=== PATIENT | male | born 1955 | race Caucasian/White ===

== ENCOUNTER 2018-01-14 08:40 | Observation (INO) | payer BC ==
--- OUTSIDE RECORDS SUMMARY | 2018-01-14 08:49 | XMS REPORT | Clinical Summary ---
:1955 Author Organization [facility] Address [address] [place] [address] Phone Care Team Providers Name Role Phone Unavailable Primary Care Provider Unavailable Allergies Active Allergy Reactions Severity Noted Date Comments Promethazine 02/20/2017 Current Medications Prescription Sig. Disp. Refills Start Date End Date Status lisinopril-hydroCHLOROthi Take 1 tablet by Active azide mouth daily. (PRINZIDE,ZESTORETIC) 20-25 mg per tabletIndications: hypertension propranolol (INDERAL) 60 Take 60 mg by mouth Active MG tablet 2 (two) times daily. Active Problems Problem Noted Date SOB (shortness of breath) 02/20/2017 Pyelonephritis 02/20/2017 Metabolic acidosis 02/20/2017 Alcohol abuse 02/20/2017 Leukocytosis 02/20/2017 Altered mental status 02/20/2017 HTN (hypertension), malignant 02/20/2017 Encounters Date Type Specialty Care Team Description 02/24/2017 Orders Only General Internal Medicine 02/20/2017 - Hospital Encounter Intensive Care Anthony Sorensen 03/07/2017 MD Cindi after 01/13/2017 Social History Tobacco Use Types Packs/Day Years Used Date Current Every Day Smoker Cigarettes Smokeless Tobacco: Current User Tobacco Cessation: Ready to Quit: No; Counseling Given: Yes Alcohol Use Drinks/Week oz/Week Comments Yes Sex Assigned at Date Recorded Not on file Last Filed Vital Signs Vital Sign Reading Time Taken Blood Pressure 141/81 03/07/2017 9:00 PM CDT Pulse 97 03/07/2017 9:00 PM CDT Temperature 36.9 C (98.5 F) 03/07/2017 7:05 PM CDT Respiratory Rate 26 03/07/2017 9:00 PM CDT Oxygen Saturation 94% 03/07/2017 9:00 PM CDT Inhaled Oxygen Concentration - - Weight 60.7 kg (133 lb 12.8 oz) 02/20/2017 9:00 PM CDT Height 172.7 cm (5' 8") 02/20/2017 9:00 PM CDT Body Mass Index 20.34 02/20/2017 9:00 PM CDT Plan of Treatment Not on file Results RHYTHM STRIP - SCAN (03/10/2017 2:42 PM)Only the most recent of3 resultswithin the time period is included.EKG-SCANNED (03/10/2017 2:41 PM)CARDIAC CATH REPORT - SCAN (03/10/2017 2:41 PM)TRANSFUSION SERVICE REPORT - SCAN (2016 5:30 PM)Only the most recent of5 resultswithin the time period is included.Prepare Leuko-Red RBC (03/08/2017 11:54 PM)Only the most recent of2 resultswithin the time period is included. Component Value Ref Range CROSSMATCH COMPATIBLE Unit ABO A Neg UNIT NUMBER [id number] Status TRANSFUSED Blood Bank Product RED BLOOD CELLS PRODUCT CODE [id number] Specimen Performing Laboratory Other [facility] [place] Type and screen (03/07/2017 8:17 AM)Only the most recent of2 resultswithin the time period is included. Component Value Ref Range Ab Scrn NEGATIVE ABO Grouping A Rh Factor POS Specimen Performing Laboratory Blood [facility] [address] [place] [address] Manual Differential (03/07/2017 4:38 AM)Only the most recent of12 resultswithin the time period is included. Component Value Ref Range % Neutros (manual) 87 % % Lymphs (manual) 7 % % Monos (manual) 4 % % Eos (manual) 1 % % Baso (manual) 1 % # Neutros (manual) 25.67 (H) 1.80 - 8.00 K/L # Lymphs (manual) 2.07 1.48 - 4.50 K/L # Monos (manual) 1.18 0.00 - 1.30 K/L # Eos (manual) 0.30 0.00 - 0.50 K/L # Baso (manual) 0.30 (H) 0.00 - 0.20 K/L Total Counted 100 WBC Morphology Normal Platelet Morphology Normal Polychromasia 1+ few Stomatocytes 1+ few Specimen Performing Laboratory [facility] [address] [place] [address] CBC with platelet count + automated diff (03/07/2017 4:38 AM)Only the most recent of13 resultswithin the time period is included. Component Value Ref Range WBC 29.5 (H) 4.0 - 10.0 K/L RBC 2.65 (L) 4.20 - 5.80 M/L Hemoglobin 8.0 (L) 13.0 - 16.8 GM/DL Hematocrit 24.3 (L) 40.0 - 50.0 % MCV 91.6 82.0 - 98.0 fL MCH 30.1 27.0 - 33.0 pg MCHC 32.9 32.0 - 36.0 GM/DL RDW 16.2 (H) 10.3 - 14.2 % Platelets 168 150 - 430 K/CU MM MPV 11.3 (H) 6.5 - 10.5 fL nRBC 0 0 - 0 /100 WBC [place] [address] CBC with platelet count + automated diff (03/07/2017 4:38 AM)Only the most recent of13 resultswithin the time period is included. Specimen Performing Laboratory Blood Narrative The following orders were created for panel order CBC with platelet count + automated diff. Procedure Abnormality Status --------- ------ CBC with platelet count ...[[id number]]AbnormalFinal result Manual Differential[[id number]]Abnormal Final result Please view results for these tests on the individual orders. Phosphorus (03/07/2017 4:38 AM)Only the most recent of11 resultswithin the time period is included. Component Value Ref Range Phosphorus 4.2 2.5 - 4.5 mg/dL Specimen Performing [facility] [address] [place] [address] Magnesium (03/07/2017 4:38 AM)Only the most recent of12 resultswithin the time period is included. Component Value Ref Range Magnesium 1.7 1.5 - 3.0 mg/dL Specimen Performing Laboratory [facility] [address] [place], [place] [id number] Comprehensive metabolic panel (03/07/2017 4:38 AM)Only the most recent of12 resultswithin the time period is included. Component Value Ref Range Protein, Total 6.0 6.0 - 8.5 gm/dL Albumin 1.7 (L) 3.5 - 5.0 g/dL Alkaline Phosphatase 160 (H) 30 - 115 U/L Total Bilirubin 0.4 0.1 - 1.2 mg/dL Sodium 134 (L) 135 - 148 meq/L Potassium 3.8 3.6 - 5.5 meq/L Chloride 104 98 - 106 meq/L CO2 23 20 - 29 meq/L BUN 28 (H) 10 - 26 mg/dL Creatinine 2.50 (H) 0.50 - 1.20 mg/dL Glucose 92 70 - 110 mg/dL Calcium 8.1 (L) 8.5 - 10.5 mg/dL AST 18 5 - 40 U/L ALT 11 5 - 50 U/L EGFR 26Comment: ESTIMATED GFR IS NOT ACCURATE mL/min/1.73 sq m CREATININE CLEARANCE IN PREDICTING GLOMERULAR FILTRATION RATE. ESTIMATED GFR IS NOT APPLICABLE FOR DIALYSIS PATIENTS. Specimen Performing Laboratory Blood [facility] [address] [place] [address] POC-Glucose meter (03/06/2017 5:43 PM)Only the most recent of19 resultswithin the time period is included. Component Value Ref Range POC-Glucose Meter 128 (H)Comment: TESTED AT [facility] [address] 70 - 110 mg/dL [facility] [address] Specimen Performing Laboratory Blood [address] [address] Basic Metabolic Panel (03/06/2017 6:47 AM)Only the most recent of5 resultswithin the time period is included. Component Value Ref Range Sodium 136 135 - 148 meq/L Potassium 3.7 3.6 - 5.5 meq/L Chloride 104 98 - 106 meq/L CO2 25 20 - 29 meq/L BUN 21 10 - 26 mg/dL Creatinine 2.10 (H) 0.50 - 1.20 mg/dL Glucose 116 (H) 70 - 110 mg/dL Calcium 7.9 (L) 8.5 - 10.5 mg/dL EGFR 32Comment: ESTIMATED GFR IS NOT ACCURATE mL/min/1.73 sq m CREATININE CLEARANCE IN PREDICTING GLOMERULAR FILTRATION RATE. ESTIMATED GFR IS NOT APPLICABLE FOR DIALYSIS PATIENTS. Specimen Performing Laboratory Blood [facility] [address] [place] [address] CT brain with IV contrast (03/05/2017 4:42 PM) Specimen Performing Laboratory [facility] Narrative FINAL REPORT CT head with contrast 03/05/2017 5:04 PM CLINICAL HISTORY: encephalopathy, r/o brain masses TECHNIQUE: Axial contrast-enhanced CT images of the head were obtained. This examination was performed according to our departmental dose optimization program, which includes automated exposure control, adjustment of the mA and/or kV according to patient size, and/or use of iterated reconstruction technique. COMPARISON: None available FINDINGS: There is no mass, hydrocephalus, extra-axial collection, midline shift, or abnormal intracranial enhancement. There is no evident hemorrhage. There is atherosclerotic calcification of the intracranial arterial vasculature. There is generalized parenchymal volume loss. The visualized paranasal sinuses and mastoid air cells are well aerated. The skull is intact. There are subcentimeter metallic density foreign bodies in the subcutaneous tissue overlying the left maxillary sinus and within the posterior wall of the left maxillary sinus. The skull is otherwise intact. IMPRESSION: Unremarkable postcontrast examination. Signed: Aquiles Sellers MD Report Verified Date/Time:03/05/2017 17:08:24 Reading Location: [facility] Radiology Reading Room Procedure Note Interface, External Ris In - 03/05/2017 5:33 PM CDT FINAL REPORT CT head with contrast 03/05/2017 5:04 PM CLINICAL HISTORY: encephalopathy, r/o brain masses TECHNIQUE: Axial contrast-enhanced CT images of the head were obtained. This examination was performed according to our departmental dose optimization program, which includes automated exposure control, adjustment of the mA and/or kV according to patient size, and/or use of iterated reconstruction technique. COMPARISON: None available FINDINGS: There is no mass, hydrocephalus, extra-axial collection, midline shift, or abnormal intracranial enhancement. There is no evident hemorrhage. There is atherosclerotic calcification of the intracranial arterial vasculature. There is generalized parenchymal volume loss. The visualized paranasal sinuses and mastoid air cells are well aerated. The skull is intact. There are subcentimeter metallic density foreign bodies in the subcutaneous tissue overlying the left maxillary sinus and within the posterior wall of the left maxillary sinus. The skull is otherwise intact. IMPRESSION: Unremarkable postcontrast examination. Signed: Aquiles Sellers MD Report Verified Date/Time: 03/05/2017 17:08:24 Reading Location: [facility] Radiology Reading Room chest with IV contrast (03/05/2017 4:42 PM) Specimen Performing Laboratory [employer] Narrative FINAL REPORT DOSE REDUCTION: The examination was performed according to departmental dose-optimization program which includes automated exposure control, adjustment of the mA and/or kV according to patient size and/or use of iterative reconstruction technique. TECHNIQUE: CT of the chest with intravenous contrast. CT of the abdomen with and without intravenous contrast using liver protocol. CT of the pelvis with intravenous contrast. Oral contrast was administered. COMPARISON: No previous CT for direct comparison. Discussion: There is a small to moderate left pleural effusion. There is a small right pleural effusion. There is lower lobe consolidation, likely atelectasis. There are nonspecific groundglass opacities bilaterally, most likely due to edema. Heart is enlarged. No significant mediastinal or hilar lymphadenopathy. Vascular calcifications are seen. Feeding tube identified. Right internal jugular nontunneled dialysis catheter identified. No definite suspicious liver lesion. No arterially enhancing foci. There is moderate intra and extra hepatic bile duct dilatation with smooth tapering distally. Correlation with history and LFTs recommended. Some of this could be due to cholecystectomy but distally obstructing mass cannot be excluded. The pancreas is markedly heterogeneous with extensive calcifications throughout. A gross pancreatic mass is not seen but a subtle lesion cannot be excluded. There are multiple prominent lymph nodes adjacent to the head of the pancreas, along the gastrohepatic ligament, malinda hepatis, as well as in the mesentery. The largest of these measures up to 2.5 cm. These may be reactive to chronic inflammation of the metastatic lymph nodes cannot be excluded. Spleen is heterogeneous. There is left adrenal gland nodularity. Right adrenal gland appears unremarkable. There are bilateral renal hypodensities, some are cysts others are too small to characterize. Left renal cortical irregularity seen. Right kidney appears small compared to the left. No small or large bowel obstruction. Mild wall thickening involving a few small bowel loops may be due to ascites/hypoalbuminemia. There is a small amount of ascites. No organized fluid collections or abscess. Extensive vascular calcifications are seen. Aorta and IVC are normal in caliber. Periaortic and pericaval lymph nodes measuring up to 2 cm identified. The bladder, prostate and seminal vesicles are unremarkable. There is moderate soft tissue anasarca. There is a low-density fluid collection along the right iliacus muscle measuring about 5 x 2.5 x 3 cm. This may represent old hematoma/seroma or some bursal fluid. There is no gas within this collection. There is a similar, nongas containing 2 x 1.5 cm fluid collection posterior to the right psoas. No acute skeletal abnormality. IMPRESSION: 1. Marked heterogeneity of the pancreas with innumerable calcifications throughout most consistent with sequela of chronic pancreatitis. No obvious pancreatic mass by CT but a subtle lesion in the pancreatic head or uncinate process cannot be excluded, especially given the biliary dilatation and the upper abdominal lymphadenopathy. Correlation with history and LFTs recommended. ERCP/MRCP may be considered. 2. Small amount of ascites. No organized fluid collections or abscess. Moderate soft tissue anasarca. 3. Small to moderate left pleural effusion and small right pleural effusion. Bilateral lower lobe consolidation likely due to atelectasis although infiltrate cannot be excluded. Nonspecific patchy groundglass opacities elsewhere the lungs. 4. Mild wall thickening involving a few small bowel loops bowel loops may be due to ascites/hypoalbuminemia. Mild enteritis is possible. 5. Small amount of fluid posterior to the right psoas muscle, and along the right iliac is muscle be due to old hematoma/seroma or some bursal fluid. No gas within the collection to suggest definitive abscess. Signed: Arash Thacker MD Report Verified Date/Time:03/05/2017 17:34:00 Reading Location: [facility] Radiology Reading Room Procedure Note Interface, External Ris In - 03/05/2017 5:36 PM CDT FINAL REPORT DOSE REDUCTION: The examination was performed according to departmental dose-optimization program which includes automated exposure control, adjustment of the mA and/or kV according to patient size and/or use of iterative reconstruction technique. TECHNIQUE: CT of the chest with intravenous contrast. CT of the abdomen with and without intravenous contrast using liver protocol. CT of the pelvis with intravenous contrast. Oral contrast was administered. COMPARISON: No previous CT for direct comparison. Discussion: There is a small to moderate left pleural effusion. There is a small right pleural effusion. There is lower lobe consolidation, likely atelectasis. There are nonspecific groundglass opacities bilaterally, most likely due to edema. Heart is enlarged. No significant mediastinal or hilar lymphadenopathy. Vascular calcifications are seen. Feeding tube identified. Right internal jugular nontunneled dialysis catheter identified. No definite suspicious liver lesion. No arterially enhancing foci. There is moderate intra and extra hepatic bile duct dilatation with smooth tapering distally. Correlation with history and LFTs recommended. Some of this could be due to cholecystectomy but distally obstructing mass cannot be excluded. The pancreas is markedly heterogeneous with extensive calcifications throughout. A gross pancreatic mass is not seen but a subtle lesion cannot be excluded. There are multiple prominent lymph nodes adjacent to the head of the pancreas, along the gastrohepatic ligament, malinda hepatis, as well as in the mesentery. The largest of these measures up to 2.5 cm. These may be reactive to chronic inflammation of the metastatic lymph nodes cannot be excluded. Spleen is heterogeneous. There is left adrenal gland nodularity. Right adrenal gland appears unremarkable. There are bilateral renal hypodensities, some are cysts others are too small to characterize. Left renal cortical irregularity seen. Right kidney appears small compared to the left. No small or large bowel obstruction. Mild wall thickening involving a few small bowel loops may be due to ascites/hypoalbuminemia. There is a small amount of ascites. No organized fluid collections or abscess. Extensive vascular calcifications are seen. Aorta and IVC are normal in caliber. Periaortic and pericaval lymph nodes measuring up to 2 cm identified. The bladder, prostate and seminal vesicles are unremarkable. There is moderate soft tissue anasarca. There is a low-density fluid collection along the right iliacus muscle measuring about 5 x 2.5 x 3 cm. This may represent old hematoma/seroma or some bursal fluid. There is no gas within this collection. There is a similar, nongas containing 2 x 1.5 cm fluid collection posterior to the right psoas. No acute skeletal abnormality. IMPRESSION: 1. Marked heterogeneity of the pancreas with innumerable calcifications throughout most consistent with sequela of chronic pancreatitis. No obvious pancreatic mass by CT but a subtle lesion in the pancreatic head or uncinate process cannot be excluded, especially given the biliary dilatation and the upper abdominal lymphadenopathy. Correlation with history and LFTs recommended. ERCP/MRCP may be considered. 2. Small amount of ascites. No organized fluid collections or abscess. Moderate soft tissue anasarca. 3. Small to moderate left pleural effusion and small right pleural effusion. Bilateral lower lobe consolidation likely due to atelectasis although infiltrate cannot be excluded. Nonspecific patchy groundglass opacities elsewhere the lungs. 4. Mild wall thickening involving a few small bowel loops bowel loops may be due to ascites/hypoalbuminemia. Mild enteritis is possible. 5. Small amount of fluid posterior to the right psoas muscle, and along the right iliac is muscle be due to old hematoma/seroma or some bursal fluid. No gas within the collection to suggest definitive abscess. Signed: Arash Thacker MD Report Verified Date/Time: 03/05/2017 17:34:00 Reading Location: [facility] Radiology Reading Room abdomen/pelvis without & with IV contrast (03/05/2017 4:42 PM) Specimen Performing Laboratory [employer] Narrative FINAL REPORT DOSE REDUCTION: The examination was performed according to departmental dose-optimization program which includes automated exposure control, adjustment of the mA and/or kV according to patient size and/or use of iterative reconstruction technique. TECHNIQUE: CT of the chest with intravenous contrast. CT of the abdomen with and without intravenous contrast using liver protocol. CT of the pelvis with intravenous contrast. Oral contrast was administered. COMPARISON: No previous CT for direct comparison. Discussion: There is a small to moderate left pleural effusion. There is a small right pleural effusion. There is lower lobe consolidation, likely atelectasis. There are nonspecific groundglass opacities bilaterally, most likely due to edema. Heart is enlarged. No significant mediastinal or hilar lymphadenopathy. Vascular calcifications are seen. Feeding tube identified. Right internal jugular nontunneled dialysis catheter identified. No definite suspicious liver lesion. No arterially enhancing foci. There is moderate intra and extra hepatic bile duct dilatation with smooth tapering distally. Correlation with history and LFTs recommended. Some of this could be due to cholecystectomy but distally obstructing mass cannot be excluded. The pancreas is markedly heterogeneous with extensive calcifications throughout. A gross pancreatic mass is not seen but a subtle lesion cannot be excluded. There are multiple prominent lymph nodes adjacent to the head of the pancreas, along the gastrohepatic ligament, malinda hepatis, as well as in the mesentery. The largest of these measures up to 2.5 cm. These may be reactive to chronic inflammation of the metastatic lymph nodes cannot be excluded. Spleen is heterogeneous. There is left adrenal gland nodularity. Right adrenal gland appears unremarkable. There are bilateral renal hypodensities, some are cysts others are too small to characterize. Left renal cortical irregularity seen. Right kidney appears small compared to the left. No small or large bowel obstruction. Mild wall thickening involving a few small bowel loops may be due to ascites/hypoalbuminemia. There is a small amount of ascites. No organized fluid collections or abscess. Extensive vascular calcifications are seen. Aorta and IVC are normal in caliber. Periaortic and pericaval lymph nodes measuring up to 2 cm identified. The bladder, prostate and seminal vesicles are unremarkable. There is moderate soft tissue anasarca. There is a low-density fluid collection along the right iliacus muscle measuring about 5 x 2.5 x 3 cm. This may represent old hematoma/seroma or some bursal fluid. There is no gas within this collection. There is a similar, nongas containing 2 x 1.5 cm fluid collection posterior to the right psoas. No acute skeletal abnormality. IMPRESSION: 1. Marked heterogeneity of the pancreas with innumerable calcifications throughout most consistent with sequela of chronic pancreatitis. No obvious pancreatic mass by CT but a subtle lesion in the pancreatic head or uncinate process cannot be excluded, especially given the biliary dilatation and the upper abdominal lymphadenopathy. Correlation with history and LFTs recommended. ERCP/MRCP may be considered. 2. Small amount of ascites. No organized fluid collections or abscess. Moderate soft tissue anasarca. 3. Small to moderate left pleural effusion and small right pleural effusion. Bilateral lower lobe consolidation likely due to atelectasis although infiltrate cannot be excluded. Nonspecific patchy groundglass opacities elsewhere the lungs. 4. Mild wall thickening involving a few small bowel loops bowel loops may be due to ascites/hypoalbuminemia. Mild enteritis is possible. 5. Small amount of fluid posterior to the right psoas muscle, and along the right iliac is muscle be due to old hematoma/seroma or some bursal fluid. No gas within the collection to suggest definitive abscess. Signed: Arash Thacker MD Report Verified Date/Time:03/05/2017 17:34:00 Reading Location: [facility] Radiology Reading Room Procedure Note Interface, External Ris In - 03/05/2017 5:36 PM CDT FINAL REPORT DOSE REDUCTION: The examination was performed according to departmental dose-optimization program which includes automated exposure control, adjustment of the mA and/or kV according to patient size and/or use of iterative reconstruction technique. TECHNIQUE: CT of the chest with intravenous contrast. CT of the abdomen with and without intravenous contrast using liver protocol. CT of the pelvis with intravenous contrast. Oral contrast was administered. COMPARISON: No previous CT for direct comparison. Discussion: There is a small to moderate left pleural effusion. There is a small right pleural effusion. There is lower lobe consolidation, likely atelectasis. There are nonspecific groundglass opacities bilaterally, most likely due to edema. Heart is enlarged. No significant mediastinal or hilar lymphadenopathy. Vascular calcifications are seen. Feeding tube identified. Right internal jugular nontunneled dialysis catheter identified. No definite suspicious liver lesion. No arterially enhancing foci. There is moderate intra and extra hepatic bile duct dilatation with smooth tapering distally. Correlation with history and LFTs recommended. Some of this could be due to cholecystectomy but distally obstructing mass cannot be excluded. The pancreas is markedly heterogeneous with extensive calcifications throughout. A gross pancreatic mass is not seen but a subtle lesion cannot be excluded. There are multiple prominent lymph nodes adjacent to the head of the pancreas, along the gastrohepatic ligament, malinda hepatis, as well as in the mesentery. The largest of these measures up to 2.5 cm. These may be reactive to chronic inflammation of the metastatic lymph nodes cannot be excluded. Spleen is heterogeneous. There is left adrenal gland nodularity. Right adrenal gland appears unremarkable. There are bilateral renal hypodensities, some are cysts others are too small to characterize. Left renal cortical irregularity seen. Right kidney appears small compared to the left. No small or large bowel obstruction. Mild wall thickening involving a few small bowel loops may be due to ascites/hypoalbuminemia. There is a small amount of ascites. No organized fluid collections or abscess. Extensive vascular calcifications are seen. Aorta and IVC are normal in caliber. Periaortic and pericaval lymph nodes measuring up to 2 cm identified. The bladder, prostate and seminal vesicles are unremarkable. There is moderate soft tissue anasarca. There is a low-density fluid collection along the right iliacus muscle measuring about 5 x 2.5 x 3 cm. This may represent old hematoma/seroma or some bursal fluid. There is no gas within this collection. There is a similar, nongas containing 2 x 1.5 cm fluid collection posterior to the right psoas. No acute skeletal abnormality. IMPRESSION: 1. Marked heterogeneity of the pancreas with innumerable calcifications throughout most consistent with sequela of chronic pancreatitis. No obvious pancreatic mass by CT but a subtle lesion in the pancreatic head or uncinate process cannot be excluded, especially given the biliary dilatation and the upper abdominal lymphadenopathy. Correlation with history and LFTs recommended. ERCP/MRCP may be considered. 2. Small amount of ascites. No organized fluid collections or abscess. Moderate soft tissue anasarca. 3. Small to moderate left pleural effusion and small right pleural effusion. Bilateral lower lobe consolidation likely due to atelectasis although infiltrate cannot be excluded. Nonspecific patchy groundglass opacities elsewhere the lungs. 4. Mild wall thickening involving a few small bowel loops bowel loops may be due to ascites/hypoalbuminemia. Mild enteritis is possible. 5. Small amount of fluid posterior to the right psoas muscle, and along the right iliac is muscle be due to old hematoma/seroma or some bursal fluid. No gas within the collection to suggest definitive abscess. Signed: Arash Thacker MD Report Verified Date/Time: 03/05/2017 17:34:00 Reading Location: [facility] Radiology Reading Room Clostridium difficile Toxin PCR (03/05/2017 4:04 PM)Only the most recent of2 resultswithin the time period is included. Component Value Ref Range C.Diff Toxin, PCR Not Detected Not Detected Specimen Performing Laboratory Stool - Rectum [address] This qualitative real-time polymerase chain reaction assay detects the tcdB gene, encoded on the C.difficile pathogenicity locus (PaLoc).The product of tcdB , toxin B, is a cytotoxin essential for causing C.difficile-associated disease (CDAD) and is found in virtually all toxigenic C.difficile. This assay is performed for patients suspected of having either community- acquired or nosocomial CDAD.Accordingly, only symptomatic patients should be tested and formed stools will be rejected unless ileus is present (i.e., specified when ordering).Patients may be colonized with toxigenic C.difficile strains not causing active disease; therefore, clinical correlation is needed when deciding how to manage patients with a positive test result. The assay has not been validated as a test of cure as amplifiable nucleic acid may persist after effective treatment; therefore, follow-up testing of a positive result is not recommended. This qualitative real-time polymerase chain reaction assay detects the tcdB gene, encoded on the C.difficile pathogenicity locus (PaLoc).The product of tcdB , toxin B, is a cytotoxin essential for causing C.difficile-associated disease (CDAD) and is found in virtually all toxigenic C.difficile. This assay is performed for patients suspected of having either community- acquired or nosocomial CDAD.Accordingly, only symptomatic patients should be tested and formed stools will be rejected unless ileus is present (i.e., specified when ordering).Patients may be colonized with toxigenic C.difficile strains not causing active disease; therefore, clinical correlation is needed when deciding how to manage patients with a positive test result. The assay has not been validated as a test of cure as amplifiable nucleic acid may persist after effective treatment; therefore, follow-up testing of a positive result is not recommended. XR abdomen / KUB 1 view (03/04/2017 9:50 PM) Specimen Performing Laboratory [facility] Narrative FINAL REPORT Abdomen, one view CLINICAL INDICATION: Status post Dobbhoff placement COMPARISON: None FINDINGS: The tip of the feeding tube lies within the gastric body along the greater curvature of the stomach. The bowel gas pattern is nonspecific. Signed: Chepe Do MD Report Verified Date/Time:03/04/2017 21:56:12 Reading Location: [address] Consult Reading Room Procedure Note Interface, External Ris In - 03/04/2017 9:58 PM CDT FINAL REPORT Abdomen, one view CLINICAL INDICATION: Status post Dobbhoff placement COMPARISON: None FINDINGS: The tip of the feeding tube lies within the gastric body along the greater curvature of the stomach. The bowel gas pattern is nonspecific. Signed: Chepe Do MD Report Verified Date/Time: 03/04/2017 21:56:12 Reading Location: [address] Consult Reading Room non-tunneled dialysis catheter insertion (03/04/2017 3:11 PM) Specimen Performing Laboratory [facility] Narrative FINAL REPORT Fluoroscopic-guided lumbar puncture and nontunneled dialysis catheter insertion History: Sepsis, meningitis, renal failure. Slicing Machine Feeder: Chepe Harvey MD. Medication: None. Anesthesia: 5 cc of 1% lidocaine without epinephrine. Contrast: None. Fluoroscopy Time: 1.5 min. Reference Air Kerma (Ka, r): 233 mGy. Specimen: 1 cc of serosanguineous CSF. Discussion: All elements maximal sterile barrier technique was utilized for this procedure, including utilization of sterile scrub solution for skin prep, a large sterile sheet to cover the areas of the patient that were not prepped, and hand hygiene, mask, head covering, and sterile gown for performing radiologist and scrub technologist. After informed consent was obtained, the patient's back was prepped and draped in a sterile fashion. The skin was anesthetized with 1% lidocaine without epinephrine. Using fluoroscopic guidance, a 22 gauge spinal needle was advanced into the spinal canal at the level of L1-L2. Position was confirmed with fluoroscopy. CSF would not flow at this level. Therefore, the needle was repositioned at the L2-3 level. Very minimal fluid could be obtained in spite of positioning the patient left lateral decubitus. Approximately 1 mL of serosanguineous thick fluid was obtained and sent to the laboratory for studies. The patient tolerated the procedure well without evidence of immediate complication.A sterile dressing was applied to the needle insertion site. The patient was then positioned supine. The right neck was prepped and draped in the usual sterile fashion. Ultrasound evaluation showed a patent and compressible right internal jugular vein, which was punctured under direct real-time ultrasound guidance with a micropuncture needle.An ultrasound image was saved to PACS. A microwire and sheath were placed. A 0.035 inch wire was placed through the sheath into the right atrium. The tract was serially dilated. The 15 cm Schon temporary dialysis catheter was placed over the wire into the vein.The ports were flushed and aspirated easily following placement.The catheter was sutured to the skin to secure its placement.Vital signs were monitored throughout the procedure by a nurse, and remained stable.The patient tolerated the procedure well and left the department in the same condition. Results:Spot radiograph of the chest demonstrates the new dialysis catheter to lie in the expected position with its tip overlying the superior right atrium. Impression: 1. Uncomplicated fluoroscopically guided lumbar puncture at L2-3. Only 1 mL of viscous serosanguineous fluid could be obtained. 2.Successful, uncomplicated placement of a right internal jugular nontunneled dialysis catheter using sonographic and fluoroscopic guidance. Signed: Chepe Harvey MD Report Verified Date/Time:03/04/2017 16:25:02 Reading Location: [facility] Radiology Reading Room Procedure Note Interface, External Ris In - 03/06/2017 9:27 AM CDT FINAL REPORT Fluoroscopic-guided lumbar puncture and nontunneled dialysis catheter insertion History: Sepsis, meningitis, renal failure. Slicing Machine Feeder: Chepe Harvey MD. Medication: None. Anesthesia: 5 cc of 1% lidocaine without epinephrine. Contrast: None. Fluoroscopy Time: 1.5 min. Reference Air Kerma (Ka, r): 233 mGy. Specimen: 1 cc of serosanguineous CSF. Discussion: All elements maximal sterile barrier technique was utilized for this procedure, including utilization of sterile scrub solution for skin prep, a large sterile sheet to cover the areas of the patient that were not prepped, and hand hygiene, mask, head covering, and sterile gown for performing radiologist and scrub technologist. After informed consent was obtained, the patient's back was prepped and draped in a sterile fashion. The skin was anesthetized with 1% lidocaine without epinephrine. Using fluoroscopic guidance, a 22 gauge spinal needle was advanced into the spinal canal at the level of L1-L2. Position was confirmed with fluoroscopy. CSF would not flow at this level. Therefore, the needle was repositioned at the L2-3 level. Very minimal fluid could be obtained in spite of positioning the patient left lateral decubitus. Approximately 1 mL of serosanguineous thick fluid was obtained and sent to the laboratory for studies. The patient tolerated the procedure well without evidence of immediate complication. A sterile dressing was applied to the needle insertion site. The patient was then positioned supine. The right neck was prepped and draped in the usual sterile fashion. Ultrasound evaluation showed a patent and compressible right internal jugular vein, which was punctured under direct real-time ultrasound guidance with a micropuncture needle. An ultrasound image was saved to PACS. A microwire and sheath were placed. A 0.035 inch wire was placed through the sheath into the right atrium. The tract was serially dilated. The 15 cm Schon temporary dialysis catheter was placed over the wire into the vein. The ports were flushed and aspirated easily following placement. The catheter was sutured to the skin to secure its placement. Vital signs were monitored throughout the procedure by a nurse, and remained stable. The patient tolerated the procedure well and left the department in the same condition. Results: Spot radiograph of the chest demonstrates the new dialysis catheter to lie in the expected position with its tip overlying the superior right atrium. Impression: 1. Uncomplicated fluoroscopically guided lumbar puncture at L2-3. Only 1 mL of viscous serosanguineous fluid could be obtained. 2.Successful, uncomplicated placement of a right internal jugular nontunneled dialysis catheter using sonographic and fluoroscopic guidance. Signed: Chepe Harvey MD Report Verified Date/Time: 03/04/2017 16:25:02 Reading Location: [facility] Radiology Reading Room Lumbar Puncture Image-Guided (03/04/2017 3:01 PM)Only the most recent of2 resultswithin the time period is included. Specimen Performing Laboratory [employer] Narrative FINAL REPORT Fluoroscopic-guided lumbar puncture and nontunneled dialysis catheter insertion History: Sepsis, meningitis, renal failure. Slicing Machine Feeder: Chepe Harvey MD. Medication: None. Anesthesia: 5 cc of 1% lidocaine without epinephrine. Contrast: None. Fluoroscopy Time: 1.5 min. Reference Air Kerma (Ka, r): 233 mGy. Specimen: 1 cc of serosanguineous CSF. Discussion: All elements maximal sterile barrier technique was utilized for this procedure, including utilization of sterile scrub solution for skin prep, a large sterile sheet to cover the areas of the patient that were not prepped, and hand hygiene, mask, head covering, and sterile gown for performing radiologist and scrub technologist. After informed consent was obtained, the patient's back was prepped and draped in a sterile fashion. The skin was anesthetized with 1% lidocaine without epinephrine. Using fluoroscopic guidance, a 22 gauge spinal needle was advanced into the spinal canal at the level of L1-L2. Position was confirmed with fluoroscopy. CSF would not flow at this level. Therefore, the needle was repositioned at the L2-3 level. Very minimal fluid could be obtained in spite of positioning the patient left lateral decubitus. Approximately 1 mL of serosanguineous thick fluid was obtained and sent to the laboratory for studies. The patient tolerated the procedure well without evidence of immediate complication.A sterile dressing was applied to the needle insertion site. The patient was then positioned supine. The right neck was prepped and draped in the usual sterile fashion. Ultrasound evaluation showed a patent and compressible right internal jugular vein, which was punctured under direct real-time ultrasound guidance with a micropuncture needle.An ultrasound image was saved to PACS. A microwire and sheath were placed. A 0.035 inch wire was placed through the sheath into the right atrium. The tract was serially dilated. The 15 cm Schon temporary dialysis catheter was placed over the wire into the vein.The ports were flushed and aspirated easily following placement.The catheter was sutured to the skin to secure its placement.Vital signs were monitored throughout the procedure by a nurse, and remained stable.The patient tolerated the procedure well and left the department in the same condition. Results:Spot radiograph of the chest demonstrates the new dialysis catheter to lie in the expected position with its tip overlying the superior right atrium. Impression: 1. Uncomplicated fluoroscopically guided lumbar puncture at L2-3. Only 1 mL of viscous serosanguineous fluid could be obtained. 2.Successful, uncomplicated placement of a right internal jugular nontunneled dialysis catheter using sonographic and fluoroscopic guidance. Signed: Chepe Harvey MD Report Verified Date/Time:03/04/2017 16:25:02 Reading Location: [facility] Radiology Reading Room Procedure Note Interface, External Ris In - 03/06/2017 9:27 AM CDT FINAL REPORT Fluoroscopic-guided lumbar puncture and nontunneled dialysis catheter insertion History: Sepsis, meningitis, renal failure. Slicing Machine Feeder: Chepe Harvey MD. Medication: None. Anesthesia: 5 cc of 1% lidocaine without epinephrine. Contrast: None. Fluoroscopy Time: 1.5 min. Reference Air Kerma (Ka, r): 233 mGy. Specimen: 1 cc of serosanguineous CSF. Discussion: All elements maximal sterile barrier technique was utilized for this procedure, including utilization of sterile scrub solution for skin prep, a large sterile sheet to cover the areas of the patient that were not prepped, and hand hygiene, mask, head covering, and sterile gown for performing radiologist and scrub technologist. After informed consent was obtained, the patient's back was prepped and draped in a sterile fashion. The skin was anesthetized with 1% lidocaine without epinephrine. Using fluoroscopic guidance, a 22 gauge spinal needle was advanced into the spinal canal at the level of L1-L2. Position was confirmed with fluoroscopy. CSF would not flow at this level. Therefore, the needle was repositioned at the L2-3 level. Very minimal fluid could be obtained in spite of positioning the patient left lateral decubitus. Approximately 1 mL of serosanguineous thick fluid was obtained and sent to the laboratory for studies. The patient tolerated the procedure well without evidence of immediate complication. A sterile dressing was applied to the needle insertion site. The patient was then positioned supine. The right neck was prepped and draped in the usual sterile fashion. Ultrasound evaluation showed a patent and compressible right internal jugular vein, which was punctured under direct real-time ultrasound guidance with a micropuncture needle. An ultrasound image was saved to PACS. A microwire and sheath were placed. A 0.035 inch wire was placed through the sheath into the right atrium. The tract was serially dilated. The 15 cm Schon temporary dialysis catheter was placed over the wire into the vein. The ports were flushed and aspirated easily following placement. The catheter was sutured to the skin to secure its placement. Vital signs were monitored throughout the procedure by a nurse, and remained stable. The patient tolerated the procedure well and left the department in the same condition. Results: Spot radiograph of the chest demonstrates the new dialysis catheter to lie in the expected position with its tip overlying the superior right atrium. Impression: 1. Uncomplicated fluoroscopically guided lumbar puncture at L2-3. Only 1 mL of viscous serosanguineous fluid could be obtained. 2.Successful, uncomplicated placement of a right internal jugular nontunneled dialysis catheter using sonographic and fluoroscopic guidance. Signed: Chepe Harvey MD Report Verified Date/Time: 03/04/2017 16:25:02 Reading Location: [facility] Radiology Reading Room Margaret ink prep (03/04/2017 3:00 PM) Component Value Ref Range Margaret Ink No encapsulated yeast seen No encapsulated yeast seen Specimen Performing Laboratory Cerebrospinal Fluid - CSF [address] [address] CSF culture + gram stain (03/04/2017 3:00 PM)Only the most recent of2 resultswithin the time period is included. Component Value Ref Range Result No growth Gram Stain Result 1+ WBCs Gram Stain Result No organisms seen Specimen Performing Laboratory Cerebrospinal Fluid - CSF [facility] [address] [place] [id number] Fungus culture + smear (03/04/2017 3:00 PM) Component Value Ref Range Result No fungus isolated in 28 days Fungus Smear No fungi seen Specimen Performing Laboratory Cerebrospinal Fluid - CSF [address] [address] Sputum Culture + Gram Stain (03/04/2017 11:18 AM) Component Value Ref Range Result 3+ Normal respiratory yeni present Gram Stain Result 2+ WBCs Gram Stain Result 0-5 epithelial cells Gram Stain Result 3+ gram negative rods Gram Stain Result 1+ yeast Gram Stain Result <1+ gram positive cocci in pairs Specimen Performing Laboratory Sputum - Suctioned [facility] [address] [place] [id number] PT/aPTT (03/04/2017 10:24 AM) Component Value Ref Range Protime 10.8 9.3 - 12.0 seconds INR 1.0 <=5.9 PTT 29.2 23.0 - 35.0 seconds Specimen Performing Laboratory Blood - Arm, Left [facility] [address] [place] [address], [place] [address] Narrative RECOMMENDED COUMADIN/WARFARIN INR THERAPY RANGES STANDARD DOSE: 2.0 - 3.0 Includes: PROPHYLAXIS for venous thrombosis, systemic embolization; TREATMENT for venous thrombosis and/or pulmonary embolus. HIGH RISK: Target INR is 2.5-3.5 for patients with mechanical heart valves. Occult blood, stool (03/04/2017 10:08 AM)Only the most recent of2 resultswithin the time period is included. Component Value Ref Range Occult blood Positive (A) Negative Specimen Performing Laboratory Stool - Per Rectum [facility] [address] [place] [address] XR chest 1 view portable / bedside (03/04/2017 9:26 AM)Only the most recent of5 resultswithin the time period is included. Specimen Performing Laboratory [facility] Narrative FINAL REPORT Chest, one view. HISTORY: Abnormal chest sounds COMPARISON: 03/01/2017 IMPRESSION: Interval removal of right-sided Oziel catheter. Persistent retrocardiac opacification which could represent a combination of trace left pleural effusion with atelectasis and/or focal airspace disease/pneumonia. No new focal consolidation. Unchanged mild central venous congestion. Unchanged enlargement of the cardiomediastinal silhouette. Signed: Chepe Harvey MD Report Verified Date/Time:03/04/2017 09:28:45 Reading Location: [facility] Radiology Reading Room Procedure Note Interface, External Ris In - 03/04/2017 9:31 AM CDT FINAL REPORT Chest, one view. HISTORY: Abnormal chest sounds COMPARISON: 03/01/2017 IMPRESSION: Interval removal of right-sided Oziel catheter. Persistent retrocardiac opacification which could represent a combination of trace left pleural effusion with atelectasis and/or focal airspace disease/pneumonia. No new focal consolidation. Unchanged mild central venous congestion. Unchanged enlargement of the cardiomediastinal silhouette. Signed: Chepe Harvey MD Report Verified Date/Time: 03/04/2017 09:28:45 Reading Location: [facility] Radiology Reading Room Blood gas, arterial (03/04/2017 8:55 AM)Only the most recent of2 resultswithin the time period is included. Component Value Ref Range pH, Arterial 7.42 7.35 - 7.45 pCO2, Arterial 34 (L) 35 - 45 mmHg pO2, Arterial 105 (H) 80 - 90 mmHg O2 Sat, Arterial 97.9 (H) 96.0 - 97.0 % HCO3, Arterial 21 21 - 29 mmol/L Base Excess, Arterial -2.6 (L) -2.0 - 3.0 mmol/L Patient Temperature 37.0 C FIO2 28.0 % Specimen Performing Laboratory Blood, Arterial - Arm, Right [facility] [address] [place] [address] Ammonia (03/03/2017 7:27 PM)Only the most recent of3 resultswithin the time period is included. Component Value Ref Range Ammonia 19 17 - 80 mol/L Specimen Performing Laboratory Blood - Arm, Right [facility] [address] [place] [address] MR brain without IV contrast (03/03/2017 3:25 PM) Specimen Performing Laboratory RIS Narrative FINAL REPORT MRI brain Comparison:No priors Reason for exam: encephalopathy Discussion: Sagittal and coronal T1, axial FLAIR, T2, gradient echo T2 star, diffusion sequences and ADC map images of the brain are provided. There are no intracranial hematomas, mass effect, hydrocephalus, shift, or extra-axial collections. Tiny foci of FLAIR signal abnormality, and corresponding diffusion restriction are seen in the occipital horn of the lateral ventricles bilaterally, as well as a left parietal lobe sulcus, possibly reflective of meningitis. There are no areas of acute infarct. Flow-voids are seen in the basilar and internal carotid arteries as well as in the large posterior dural sinuses. The pineal, sella, and craniocervical junction regions are within normal limits. The visualized orbital contents,skullbase and surrounding soft tissues are unremarkable. The mastoid air cells are clear. Mild mucosal disease is noted in the maxillary sinuses. Impressions: Tiny foci of intraventricular, and left parietal sulcal signal abnormality /diffusion restriction may reflect meningitis. Suggest correlation with CSF analysis. Signed: Pk Jefferson MD Report Verified Date/Time:03/03/2017 15:57:57 Reading Location: [facility] Radiology Reading Room Procedure Note Interface, External Ris In - 03/03/2017 4:00 PM CDT FINAL REPORT MRI brain Comparison: No priors Reason for exam: encephalopathy Discussion: Sagittal and coronal T1, axial FLAIR, T2, gradient echo T2 star, diffusion sequences and ADC map images of the brain are provided. There are no intracranial hematomas, mass effect, hydrocephalus, shift, or extra-axial collections. Tiny foci of FLAIR signal abnormality, and corresponding diffusion restriction are seen in the occipital horn of the lateral ventricles bilaterally, as well as a left parietal lobe sulcus, possibly reflective of meningitis. There are no areas of acute infarct. Flow-voids are seen in the basilar and internal carotid arteries as well as in the large posterior dural sinuses. The pineal, sella, and craniocervical junction regions are within normal limits. The visualized orbital contents, skullbase and surrounding soft tissues are unremarkable. The mastoid air cells are clear. Mild mucosal disease is noted in the maxillary sinuses. Impressions: Tiny foci of intraventricular, and left parietal sulcal signal abnormality /diffusion restriction may reflect meningitis. Suggest correlation with CSF analysis. Signed: Pk Jefferson MD Report Verified Date/Time: 03/03/2017 15:57:57 Reading Location: [facility] Radiology Reading Room brain without IV contrast (03/03/2017 9:40 AM)Only the most recent of2 resultswithin the time period is included. Specimen Performing Laboratory Automile RIS Narrative FINAL REPORT CT head without contrast. Comparisons: February 25, 2017 Reason for exam: AMS. Discussion: Multiple axial CT images of the head are provided without contrast evaluated in brain and bone windows. Dose modulation, iterative reconstruction, and/or weight based adjustment of the mA/kV was utilized to reduce the radiation dose to as low as reasonably achievable. There is no CT evidence of intracranial hemorrhage, mass-effect, hydrocephalus, shift, or extra-axial collections. Incidental note is made of poor dentition with missing teeth and dental caries. A metallic foreign body is seen in the left paranasal soft tissues and hyperdense foreign material is seen in the left-sided pterygopalatine fossa region. The visualized dural sinus regions, orbital contents, paranasal sinuses, bones and surrounding soft tissues are otherwise unremarkable. Impressions: 1. No specific evidence of acute intracranial abnormality. Signed: Reyes Bhatia MD Report Verified Date/Time:03/03/2017 09:54:01 Reading Location: [address] Neuro Reading Room Procedure Note Interface, External Ris In - 03/03/2017 9:56 AM CDT FINAL REPORT CT head without contrast. Comparisons: February 25, 2017 Reason for exam: AMS. Discussion: Multiple axial CT images of the head are provided without contrast evaluated in brain and bone windows. Dose modulation, iterative reconstruction, and/or weight based adjustment of the mA/kV was utilized to reduce the radiation dose to as low as reasonably achievable. There is no CT evidence of intracranial hemorrhage, mass-effect, hydrocephalus, shift, or extra-axial collections. Incidental note is made of poor dentition with missing teeth and dental caries. A metallic foreign body is seen in the left paranasal soft tissues and hyperdense foreign material is seen in the left-sided pterygopalatine fossa region. The visualized dural sinus regions, orbital contents, paranasal sinuses, bones and surrounding soft tissues are otherwise unremarkable. Impressions: 1. No specific evidence of acute intracranial abnormality. Signed: Reyes Bhatia MD Report Verified Date/Time: 03/03/2017 09:54:01 Reading Location: [address] Neuro Reading Room Catheter Tip Culture (03/02/2017 2:54 PM) Component Value Ref Range Result No growth Specimen Performing Laboratory Other - Catheter Tip [facility] [address] [place] [address] Sodium, random urine (03/02/2017 1:49 PM) Component Value Ref Range Sodium Urine 37 meq/L Specimen Performing Laboratory Urine [facility] [address] [place] [address] Narrative Reference Range: No Normals Creatinine, random urine (03/02/2017 1:49 PM) Component Value Ref Range Creatinine, Ur 75.3 mg/dL Specimen Performing Laboratory Urine [facility] [address] [place] [address] Narrative Reference Range: No Normals Eosinophil smear (03/01/2017 2:58 PM) Component Value Ref Range Eosinophil Smear No EOS seen No EOS seen Specimen Performing Laboratory Urine [facility] [address] [place] [address] Transfuse Leuko-Red RBC (02/28/2017 5:59 AM)Only the most recent of3 resultswithin the time period is included.CBC (Hemogram only) (02/27/2017 4:43 AM)Only the most recent of3 resultswithin the time period is included. Component Value Ref Range WBC 27.2 (H) 4.0 - 10.0 K/L RBC 2.45 (L) 4.20 - 5.80 M/L Hemoglobin 7.4 (L) 13.0 - 16.8 GM/DL Hematocrit 23.1 (L) 40.0 - 50.0 % MCV 94.2 82.0 - 98.0 fL MCH 30.4 27.0 - 33.0 pg MCHC 32.2 32.0 - 36.0 GM/DL RDW 14.5 (H) 10.3 - 14.2 % Platelets 108 (L)Comment: histroy of low platlets 150 - 430 K/CU MM MPV 13.7 (H) 6.5 - 10.5 fL nRBC 0 0 - 0 /100 WBC Specimen Performing Laboratory Blood [facility] [address] [place] [id number] PERIPHERAL VASCULAR REPORT - SCAN (02/26/2017 2:10 PM)Arterial doppler arm, left (02/26/2017 9:05 AM) Specimen Performing Laboratory GE RIS Narrative FINAL REPORT Technique: Grayscale, color Doppler, spectral wave form analysis of the left upper extremity arterial system was performed. Discussion: Exam is technically limited due to patient's condition and inability to cooperate. Arthrosclerotic plaques are seen throughout. The visualized portion of the left subclavian artery, axillary artery, brachial artery, radial and ulnar arteries are otherwise patent without definite focal hemodynamically significant stenosis. Biphasic to triphasic waveforms seen throughout. IMPRESSION: Arthrosclerotic vascular calcifications but no focal hemodynamically significant stenosis in the left upper extremity arteries. Signed: Arash Thacker MD Report Verified Date/Time:02/26/2017 13:32:47 Reading Location: [facility] Radiology Reading Room Procedure Note Interface, External Ris In - 02/26/2017 1:35 PM CDT FINAL REPORT Technique: Grayscale, color Doppler, spectral wave form analysis of the left upper extremity arterial system was performed. Discussion: Exam is technically limited due to patient's condition and inability to cooperate. Arthrosclerotic plaques are seen throughout. The visualized portion of the left subclavian artery, axillary artery, brachial artery, radial and ulnar arteries are otherwise patent without definite focal hemodynamically significant stenosis. Biphasic to triphasic waveforms seen throughout. IMPRESSION: Arthrosclerotic vascular calcifications but no focal hemodynamically significant stenosis in the left upper extremity arteries. Signed: Arash Thacker MD Report Verified Date/Time: 02/26/2017 13:32:47 Reading Location: [facility] Radiology Reading Room CARDIOGRAM REPORT - SCAN (02/25/2017 5:36 PM)CT spine lumbar without IV contrast (02/25/2017 9:01 AM) Specimen Performing Laboratory [facility] RIS Narrative FINAL REPORT CT lumbar spine INDICATION: Lumbago COMPARISON: No priors TECHNIQUE: Multiple axial CT images of the lumbar spine were obtained without contrast. Sagittal and coronal 2D reconstructions were provided as well. This exam was performed according to our departmental dose optimization program which includes automated exposure control, adjustment of the mA and/or kV according to patient's size and/or use of iterative reconstructive technique. FINDINGS: Vertebral body height is normal, and alignment is maintained. No fracture, or suspicious bony lesion. Central canal appears narrow no congenital basis, and there is superimposed degenerative changes. Note evaluation of the central canal and neural foramina is limited in the absence of intrathecal contrast. At T12-L1, no significant central canal or foraminal narrowing. At L1-L2, there is a mild disc bulge and mild facet arthropathy. Central canal appears mildly narrowed, patent neural foramen. At L2-L3, there is a moderate diffuse disc bulge and mild facet arthropathy. There is cqhi-lm-ykbhvxuo narrowing of the central canal and okrh-eo-pacfrhqq right, moderate left foraminal stenosis. At L3-L4, there is loss of disc height, associated with a large disc bulge. Gnnw-py-ihnocqze facet arthropathy. Central canal is severely narrowed, and there is also moderate to severe bilateral foraminal stenosis. At L4-L5, there is a large disc bulge and gnjm-xw-lntnwgep facet arthropathy. Central canal appears moderately narrowed, and there is severe bilateral foraminal narrowing. At L5-S1, there is a large disc bulge and mild facet arthropathy. Central canal is mild to moderately narrowed, and there is severe bilateral foraminal stenosis. The aorta appears ectatic, measuring up to 2.5 cm, and is heavily calcified. The right kidney appears atrophic, containing a 1.5 cm hypodensity that likely represents a hemorrhagic or proteinaceous cyst when correlated with recent ultrasound. There is nonspecific right-sided perinephric fat stranding. Additionally, a small amount of ascites is also noted, with probable small right pleural effusion. The visualized paraspinal soft tissues appear unremarkable. Note is made of anasarca. 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 In particular, there is severe central canal narrowing and moderate bilateral foraminal narrowing at L3-L4. Severe bilateral foraminal narrowing is also noted at L4-L5 and at L5-S1. Small amount of ascites. Probable small right pleural effusion. Anasarca. Atherosclerotic disease, ectatic aorta. Atrophic right kidney, containing a hemorrhagic/tenacious cyst. Signed: Pk Jefferson MD Report Verified Date/Time:02/25/2017 13:58:19 Reading Location: [facility] C013 Consult Reading Room Procedure Note Interface, External Ris In - 02/25/2017 2:00 PM CDT FINAL REPORT CT lumbar spine INDICATION: Lumbago COMPARISON: No priors TECHNIQUE: Multiple axial CT images of the lumbar spine were obtained without contrast. Sagittal and coronal 2D reconstructions were provided as well. This exam was performed according to our departmental dose optimization program which includes automated exposure control, adjustment of the mA and/or kV according to patient's size and/or use of iterative reconstructive technique. FINDINGS: Vertebral body height is normal, and alignment is maintained. No fracture, or suspicious bony lesion. Central canal appears narrow no congenital basis, and there is superimposed degenerative changes. Note evaluation of the central canal and neural foramina is limited in the absence of intrathecal contrast. At T12-L1, no significant central canal or foraminal narrowing. At L1-L2, there is a mild disc bulge and mild facet arthropathy. Central canal appears mildly narrowed, patent neural foramen. At L2-L3, there is a moderate diffuse disc bulge and mild facet arthropathy. There is grwg-cr-awmuccpx narrowing of the central canal and aavw-sv-eftqzfek right, moderate left foraminal stenosis. At L3-L4, there is loss of disc height, associated with a large disc bulge. Kefo-tf-kiktfiis facet arthropathy. Central canal is severely narrowed, and there is also moderate to severe bilateral foraminal stenosis. At L4-L5, there is a large disc bulge and fxmt-cb-xnhxquoz facet arthropathy. Central canal appears moderately narrowed, and there is severe bilateral foraminal narrowing. At L5-S1, there is a large disc bulge and mild facet arthropathy. Central canal is mild to moderately narrowed, and there is severe bilateral foraminal stenosis. The aorta appears ectatic, measuring up to 2.5 cm, and is heavily calcified. The right kidney appears atrophic, containing a 1.5 cm hypodensity that likely represents a hemorrhagic or proteinaceous cyst when correlated with recent ultrasound. There is nonspecific right-sided perinephric fat stranding. Additionally, a small amount of ascites is also noted, with probable small right pleural effusion. The visualized paraspinal soft tissues appear unremarkable. Note is made of anasarca. 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 In particular, there is severe central canal narrowing and moderate bilateral foraminal narrowing at L3-L4. Severe bilateral foraminal narrowing is also noted at L4-L5 and at L5-S1. Small amount of ascites. Probable small right pleural effusion. Anasarca. Atherosclerotic disease, ectatic aorta. Atrophic right kidney, containing a hemorrhagic/tenacious cyst. Signed: Pk Jefferson MD Report Verified Date/Time: 02/25/2017 13:58:19 Reading Location: [facility] B1 [id number] Consult Reading Room Vancomycin level, random (02/24/2017 2:05 PM)Only the most recent of3 resultswithin the time period is included. Component Value Ref Range Vancomycin Rm 18.0 ug/mL Specimen Performing Laboratory Blood [facility] [address] [facility] [place] [address] Narrative Reference Range: No Normals 2D Echo W/Doppler(CW/PW/Color) (02/24/2017 8:09 AM) Component Value Ref Range Ejection Fraction Specimen Performing Laboratory [facility] ECHO HEARTLAB MKCKESSON CPACS Narrative Transthoracic Echocardiography Report (TTE) Demographics Patient Name LORNA VERMA Date of Study02/24/2017 [id number] Male Visit Number [id number] Unknown Accession Number [id number] Room [id number] Date of Birth1955Referring Physician Age62 year(s)SonographMuna James [facility] Interpreting Physician Reno Dewey MD Procedure Type of Study TTE procedure:2DECHO W DOPPLER(CW/PW/COLOR) (Routine) Indications:Dyspnea/SOB. Clinical History HTN EMPHYSEMA Height: 68 inches Weight: 60.33 kg (133 lbs) BSA: 1.72 m^2 BMI: 20.22 kg/m^2 HR: 100 bpm BP: 112/68 mmHg Summary TDS Normal left ventricular chamber size. Mild LVH. Normal overall left ventricular systolic function. No apparent segmental wall motion abnormalities. Estimated LVEF is 55-60%. Mild mitral annular calcification. Trace mitral regurgitation. TV structure is normal. A trace of tricuspid regurgitation. Signature Findings LeftTDS Ventricle Normal left ventricular chamber size. Mild LVH. Normal overall left ventricular systolic function. No apparent segmental wall motion abnormalities. Estimated LVEF is 55-60%. Left Atrium Normal size left atrium. Right Normal right ventricle structure and function. Ventricle Right AtriumNormal right atrium. Aortic ValveThere is evidence of aortic valve sclerosis without significant stenosis. Mitral ValveMild mitral annular calcification. Trace mitral regurgitation. Tricuspid TV structure is normal. Valve A trace of tricuspid regurgitation. PulmonicPV is not well visualized. Valve Aorta Aortic root size (SInus of Valsalva diameter) is normal . Pericardium No evidence of pericardial effusion. Chambers/Structures Left Atrium LA Dimension: 2.54 cm Left Ventricle LVIDd: 4.08 cmLVEDV 2D :73.38 ml LVIDs: 2.93 cmLVESV 2D :33.08 ml LV Septum Diastolic: 2.14 cm LV Septum Systolic: 2.1 cm LV PW Diastolic: 1.3 cm LV FS: 28.2 % LV PW Systolic: 1.82 cm LV ESV (Cubed): 25.15 cc LVOT Diameter: 2.33 cm LV ESV (Teich):33.03 ml LV SV (Teich):40.33 ml LV SI (Teich):23.45 ml/m^2 LVEF 2D Teich: 54.9 % Right Atrium RA Systolic Pressure: 10 mmHg Right Ventricle RV Diast Dim.: 2.78 cm RV Systolic Pressure: 17.44 mmHg Aorta Ao Root S of .: 3.09 cm Shunts QS:104 ml Doppler/Quantitative Measurements Mitral Valve MV Peak E-Wave: 0.78 m/s MV Peak A-Wave: 0.99 m/s P1/2t: 39.1 msec E/A Ratio: 0.78 Peak Velocity: 0.98 m/sPeak Gradient: 2.4 mmHg Mean Velocity: 0.6 m/s Deceleration Time: 145.9 msec Mean Gradient: 1.7 mmHgArea (continuity): 4.86 cm^ 2 MV Area (PHT): 5.63 cm^2 MV VTI: 21.38 cm Tissue Doppler E' Septal Velocity: 0.07 m/s E' Lateral Velocity: 0.1 m/s Aortic Valve Peak Velocity: 1.66 m/s Mean Velocity: 1.1 m/s Peak Gradient: 11.02 mmHg Mean Gradient: 5.8 mmHg AV Area (continuity): 4 cm^2 AV VTI: 25.99 cm Cusp Separation: 0.78 cm AV DVI: 0.94 LVOT Peak Velocity: 1.37 m/s Peak Gradient: 7.5 mmHg Mean Velocity: 0.88 m/s Mean Gradient: 3.84 mmHg LVOT Diameter: 2.33 cmLVOT VTI: 24.39 cm LVOT Area: 4.26 cm^2LVOT SV:103.94 ml LVOT CO: 10.39 l/minLVOT CI: 6.04 l/min/m^2 Tricuspid Valve Estimated RVSP: 17.44 mmHg Estimated RAP: 10 mmHg TR Velocity: 1.36 m/s TR Gradient: 7.44 mmHg Pulmonic Valve Estimated PASP: 17.44 mmHg Procedure Note Interface, External Ris In - 02/25/2017 4:40 PM CDT Transthoracic Echocardiography Report (TTE) Demographics Patient Name LORNA VERMA Date of Study 02/24/2017 Gender Male Visit Number [id number] Race Unknown Accession Number [id number] Room Number I205 Date of 1955 Referring Physician Age 62 year(s) 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 Clinical History HTN EMPHYSEMA Height: 68 inches Weight: 60.33 kg (133 lbs) BSA: 1.72 m^2 BMI: 20.22 kg/m^2 HR: 100 bpm BP: 112/68 mmHg Summary TDS Normal left ventricular chamber size. Mild LVH. Normal overall left ventricular systolic function. No apparent segmental wall motion abnormalities. Estimated LVEF is 55-60%. Mild mitral annular calcification. Trace mitral regurgitation. TV structure is normal. A trace of tricuspid regurgitation. Signature Findings Left TDS Ventricle Normal left ventricular chamber size. Mild LVH. Normal overall left ventricular systolic function. No apparent segmental wall motion abnormalities. Estimated LVEF is 55-60%. Left Atrium Normal size left atrium. Right Normal right ventricle structure and function. Ventricle Right Atrium Normal right atrium. Aortic Valve There is evidence of aortic valve sclerosis without significant stenosis. Mitral Valve Mild mitral annular calcification. Trace mitral regurgitation. Tricuspid TV structure is normal. Valve A trace of tricuspid regurgitation. Pulmonic PV is not well visualized. Valve Aorta Aortic root size (SInus of Valsalva diameter) is normal . Pericardium No evidence of pericardial effusion. Chambers/Structures Left Atrium LA Dimension: 2.54 cm Left Ventricle LVIDd: 4.08 cm LVEDV 2D:73.38 ml LVIDs: 2.93 cm LVESV 2D:33.08 ml LV Septum Diastolic: 2.14 cm LV Septum Systolic: 2.1 cm LV PW Diastolic: 1.3 cm LV FS: 28.2 % LV PW Systolic: 1.82 cm LV ESV (Cubed):25.15 cc LVOT Diameter: 2.33 cm LV ESV (Teich):33.03 ml LV SV (Teich):40.33 ml LV SI (Teich):23.45 ml/m^2 LVEF 2D Teich: 54.9 % Right Atrium RA Systolic Pressure: 10 mmHg Right Ventricle RV Diast Dim.: 2.78 cm RV Systolic Pressure: 17.44 mmHg Aorta Ao Root S of .: 3.09 cm Shunts QS:104 ml Doppler/Quantitative Measurements Mitral Valve MV Peak E-Wave: 0.78 m/s MV Peak A-Wave: 0.99 m/s P1/2t: 39.1 msec E/A Ratio: 0.78 Peak Velocity: 0.98 m/s Peak Gradient: 2.4 mmHg Mean Velocity: 0.6 m/s Deceleration Time: 145.9 msec Mean Gradient: 1.7 mmHg Area (continuity): 4.86 cm^2 MV Area (PHT): 5.63 cm^2 MV VTI: 21.38 cm Tissue Doppler E' Septal Velocity: 0.07 m/s E' Lateral Velocity: 0.1 m/s Aortic Valve Peak Velocity: 1.66 m/s Mean Velocity: 1.1 m/s Peak Gradient: 11.02 mmHg Mean Gradient: 5.8 mmHg AV Area (continuity): 4 cm^2 AV VTI: 25.99 cm Cusp Separation: 0.78 cm AV DVI: 0.94 LVOT Peak Velocity: 1.37 m/s Peak Gradient: 7.5 mmHg Mean Velocity: 0.88 m/s Mean Gradient: 3.84 mmHg LVOT Diameter: 2.33 cm LVOT VTI: 24.39 cm LVOT Area: 4.26 cm^2 LVOT SV:103.94 ml LVOT CO: 10.39 l/min LVOT CI: 6.04 l/min/m^2 Tricuspid Valve Estimated RVSP: 17.44 mmHg Estimated RAP: 10 mmHg TR Velocity: 1.36 m/s TR Gradient: 7.44 mmHg Pulmonic Valve Estimated PASP: 17.44 mmHg STOOL PATH CHARGE (02/24/2017 4:57 AM) Component Value Ref Range Pathogen exam charged Done Specimen Performing Laboratory Stool - Rectum [facility] [address] [place] [id number] Shiga Toxin Screen (02/24/2017 4:57 AM) Component Value Ref Range Shiga toxin 1 Not detected Not detected Shiga toxin 2 Not detected Not detected Specimen Performing Laboratory Stool - Rectum [facility] [address] [place] [address] Stool culture + Shiga toxin (02/24/2017 4:57 AM) Component Value Ref Range Result No Salmonella, Shigella or Campylobacter isolated Specimen Performing Laboratory Stool - Rectum [facility] [address] [place] [address] HIV-1 Antigen with HIV-1/2 Antibody (02/23/2017 6:09 AM) Component Value Ref Range HIV-1 Antigen with HIV 1&2 Antibody Nonreactive Nonreactive Specimen Performing Laboratory Blood - Central Venous Line [facility] [address] [place] [address] Carbohydrate antigen 19-9 (CA 19-9) (02/23/2017 6:09 AM) Component Value Ref Range CA 19-9 316 (H) <34 U/mL Comment: This test was performed using the Siemens (Lionel) Chemiluminescent method. Values obtained from different assay methods cannot be used interchangeably. CA19-9 levels, regardless of value, should not be interpreted as absolute evidence of the presence or absence of disease. Specimen Performing Laboratory Blood - Central Venous Line [facility] [address] [place] [address] Narrative Performing Lab [facility] [address] [place] [address] Jim Harmon MD Alpha fetoprotein (AFP), tumor marker (02/23/2017 6:09 AM) Component Value Ref Range Alpha-Fetoprotein <2.0 <10.0 ng/mL Specimen Performing Laboratory Blood - Central Venous Line [address] [address] Hepatitis panel, acute (02/23/2017 6:09 AM) Component Value Ref Range Hep A IgM Nonreactive Nonreactive Hep B C IgM Nonreactive Nonreactive Hepatitis C Ab Nonreactive Nonreactive hepatitis B Surface Ag Nonreactive Nonreactive Specimen Performing Laboratory Blood - Central Venous Line [address] [address] Urine culture (02/22/2017 11:04 PM)Only the most recent of2 resultswithin the time period is included. Component Value Ref Range Result No growth Specimen Performing Laboratory Urine - Urine, Irene [facility] [address] [place] [address] CSF cell count with differential (02/22/2017 4:08 PM) Component Value Ref Range Appearance Turbid (A) Clear Color Other (A)Comment: Light Brown Colorless RBCs 481070 (H) 0 - 5 /cu mm WBCs 946868 (H) <=5 /cu mm RBCs Fresh? 100% Fresh # of Cells Diff'd 100 % Neutros 92 (H) 0 - 5 % % Lymphs 4 (L) 40 - 80 % % Monos 4 (L) 15 - 45 % % Eos 0 <=0 % % Baso 0 <=0 % Interpretation Predominantly acute inflammation. Agree with differential count Pathologist: Amy Orozco M.D. (electronic signature) Tube Number 2 Specimen Performing Laboratory Cerebrospinal Fluid - CSF, tube 2 [facility] [address] [place] [address] West Nile Virus, CSF, IgG and IgM (02/22/2017 4:08 PM) Component Value Ref Range West Nile Ab,Igm <0.90 Comment: REFERENCE RANGE: <0.90 INTERPRETIVE CRITERIA <0.90 Antibody not detected 0.90 - 1.10 Equivocal >1.10 Antibody detected West Nile virus (WNV) IgM is usually detectable in CSF from WNV-infected patients with encephalitis or meningitis at the time of clinical presentation. Because IgM antibody does not readily cross the blood-brain barrier, IgM antibody in CSF strongly suggests acute central nervous system infection. WNV antibody results from CSF should be in interpreted with caution. Possible complicating factors include low levels of antibody found in CSF, passive transfer of antibodies from blood, and contamination via bloody spinal taps. Antibodies induced by other flavivirus infections (e.g. Dengue virus, [place] encephalitis virus) may show cross-reactivity with WNV. Specimen Performing Laboratory Cerebrospinal Fluid - CSF, tube 2 [facility] [address] [address] Narrative Performing Lab *QDID [facility] [address] [place] [phone] Mumtaz Renae MD Protein, CSF (02/22/2017 4:08 PM) Component Value Ref Range Protein, CSF 352 (H) 15 - 45 mg/dL Specimen Performing Laboratory Cerebrospinal Fluid - CSF, tube 2 [facility] [address] [place] [address] Myelin basic protein, CSF (02/22/2017 4:08 PM) Component Value Ref Range Myelin Basic Protein SEE BELOW 0 - 4.0 mcg/L Comment: Specimen grossly turbid. Reference ranges for Myelin Basic Protein: Result Interpretation 0- 4.0 mcg/LNegative 4.1-6.0 mcg/LWeakly Positive Greater than 6.0 mcg/L Positive This test was developed and its analytical performance characteristics have been determined by [facility]. It has not been cleared or approved by FDA. This assay has been validated pursuant to the CLIA regulations and is used for clinical purposes. Specimen Performing Laboratory Cerebrospinal Fluid - CSF, tube 2 [facility] [address] [address] Narrative Performing Lab [facility] [address] [address] Jim Harmon MD Glucose, CSF (02/22/2017 4:08 PM) Component Value Ref Range Glucose, CSF 4 (LL) 40 - 70 mg/dL Specimen Performing Laboratory Cerebrospinal Fluid - CSF, tube 2 [facility] [address] [place] [address] Uric acid (02/22/2017 6:03 AM)Only the most recent of3 resultswithin the time period is included. Component Value Ref Range Uric Acid 11.2 (H) 2.5 - 8.0 mg/dL Specimen Performing Laboratory [facility] [address] [place] [address] B-type Natriuretic Factor (BNP) (02/22/2017 6:03 AM) Component Value Ref Range BNP 2856 (H) 0 - 100 pg/mL Specimen Performing Laboratory Blood [facility] [address] [place] [address] XR hand 3 views right (02/21/2017 5:51 PM) Specimen Performing Laboratory [facility] Narrative FINAL REPORT Comparison: None Discussion: Multiple views are submitted ofthe right hand. There are no acute fractures or dislocations. There is diffuse osteopenia. No suspicious osseous lytic or blastic lesions. Nonspecific soft tissue edema seen. Impression: No acute bony abnormality. Signed: Arash Thacker MD Report Verified Date/Time:02/21/2017 18:00:38 Reading Location: [facility] Radiology Reading Room Procedure Note Interface, External Ris In - 02/21/2017 6:02 PM CDT FINAL REPORT Comparison: None Discussion: Multiple views are submitted of the right hand. There are no acute fractures or dislocations. There is diffuse osteopenia. No suspicious osseous lytic or blastic lesions. Nonspecific soft tissue edema seen. Impression: No acute bony abnormality. Signed: Arash Thacker MD Report Verified Date/Time: 02/21/2017 18:00:38 Reading Location: [facility] Radiology Reading Room hand 3 views left (02/21/2017 5:51 PM) Specimen Performing Laboratory [facility] Narrative FINAL REPORT Comparison: None Discussion: Multiple views are submitted ofthe left hand. Exam is limited due to portable technique and suboptimal positioning. No definite fracture or dislocation identified. There is diffuse osteopenia. There is nonspecific soft tissue edema. There is a radiopaque foreign body of unclear etiology measuring about 2 mm in between the soft tissues of the first and second digit. Correlation with history recommended. IMPRESSION: No definite acute bony abnormality. Punctate radiopaque foreign body within the soft tissues in between the thumb and index finger. Nonspecific soft tissue edema. Signed: Arash Thacker MD Report Verified Date/Time:02/21/2017 17:59:33 Reading Location: [facility] Radiology Reading Room Procedure Note Interface, External Ris In - 02/21/2017 6:01 PM CDT FINAL REPORT Comparison: None Discussion: Multiple views are submitted of the left hand. Exam is limited due to portable technique and suboptimal positioning. No definite fracture or dislocation identified. There is diffuse osteopenia. There is nonspecific soft tissue edema. There is a radiopaque foreign body of unclear etiology measuring about 2 mm in between the soft tissues of the first and second digit. Correlation with history recommended. IMPRESSION: No definite acute bony abnormality. Punctate radiopaque foreign body within the soft tissues in between the thumb and index finger. Nonspecific soft tissue edema. Signed: Arash Thacker MD Report Verified Date/Time: 02/21/2017 17:59:33 Reading Location: [facility] Radiology Reading Room Hepatitis B surface antibody (02/21/2017 12:53 PM) Component Value Ref Range Hep B S Ab <8.0 <8.0 mIU/mL Specimen Performing Laboratory Blood - Line, Venous [facility] [address] [address] Hepatitis B surface antigen (02/21/2017 12:53 PM) Component Value Ref Range hepatitis B Surface Ag Nonreactive Nonreactive Specimen Performing Laboratory Blood - Line, Venous [facility] [address] [place] [address] IR Non-tunneled Catheter - Central Line/Oziel Temporary (02/21/2017 12:00 PM) Specimen Performing Laboratory [facility] Narrative FINAL REPORT Procedure: Placement of a nontunneled hemodialysis catheter. Clinical History: Renal disease Operators: Beatriz Sedation:None TECHNIQUE: The right neck was prepped and draped in sterile fashion. All elements maximal sterile barrier technique was utilized for this procedure, including utilization of sterile scrub solution for skin prep, a large sterile sheet to cover the areas of the patient that were not prepped, and hand hygiene, mask, head covering, and sterile gown for performing radiologist and scrub technologist. 1% lidocaine local anesthesia was obtained. The rightinternal jugularvein was accessed with ultrasound guidance and a micropuncture system. Access site was dilated using multiple dilators up to 13 [place]. A 15 cm nontunneled " Trialysis" catheter was then advanced over a wire under fluoroscopic control into position near the cavoatrial junction. Wire was removed and the catheter was anchored to the skin using Prolene sutures. The catheter lumens flushed and aspirated easily and were packed with heparin. FINDINGS: 1. Patent right internal jugular vein by ultrasound.An image was saved to PACS. 2. Spot radiograph post procedure demonstrate the catheter tip at the atriocaval junction. Total fluoroscopy time: 12 seconds Estimated dose reported as ( Ka, r): 0.1 mGy There are no immediate complications. IMPRESSION: Successful placement of a nontunneled right internal jugular vein hemodialysis catheter using sonographic and fluoroscopic guidance. 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 Clinical History: Renal disease Operators: Beatriz Sedation: None TECHNIQUE: The right neck was prepped and draped in sterile fashion. All elements maximal sterile barrier technique was utilized for this procedure, including utilization of sterile scrub solution for skin prep, a large sterile sheet to cover the areas of the patient that were not prepped, and hand hygiene, mask, head covering, and sterile gown for performing radiologist and scrub technologist. 1% lidocaine local anesthesia was obtained. The right internal jugular vein was accessed with ultrasound guidance and a micropuncture system. Access site was dilated using multiple dilators up to 13 [place]. A 15 cm nontunneled " Trialysis" catheter was then advanced over a wire under fluoroscopic control into position near the cavoatrial junction. Wire was removed and the catheter was anchored to the skin using Prolene sutures. The catheter lumens flushed and aspirated easily and were packed with heparin. FINDINGS: 1. Patent right internal jugular vein by ultrasound. An image was saved to PACS. 2. Spot radiograph post procedure demonstrate the catheter tip at the atriocaval junction. Total fluoroscopy time: 12 seconds Estimated dose reported as ( Ka, r): 0.1 mGy There are no immediate complications. IMPRESSION: Successful placement of a nontunneled right internal jugular vein hemodialysis catheter using sonographic and fluoroscopic guidance. Signed: Arash Thacker MD Report Verified Date/Time: 06/27/2017 10:01:07 Reading Location: [facility] Radiology Reading Room abdomen complete (02/21/2017 9:13 AM) Specimen Performing Laboratory [employer] Narrative FINAL REPORT Technique: Sonographic images of the abdomen obtained COMPARISON: None FINDINGS: Exam is significantly limited as patient was unable to lay motionless or suspend respiration for the exam. Liver is diffusely heterogeneous. There is intra and extra hepatic bile duct dilatation. Underlying mass lesions cannot be excluded. Liver measures 15.9 cm. Gallbladder is surgically absent. Spleen is not seen. Common bile duct measures 10 mm. Portal vein measures 8 mm. Right kidney is small and echogenic. It measures 8 cm without gross hydronephrosis or mass. A cyst in the lower pole of the right kidney seen. Left kidney measures 12 cm. No hydronephrosis or mass. It appears echogenic. Left renal cyst is seen measuring up to 2 cm. Pancreatic duct is dilated measuring 9 mm. Pancreas is not well seen. IVC appears patent. Calcified aorta are noted. There is ectasia of the infrarenal aorta measuring up to 2.5 cm. There is trace ascites. No pleural effusions. IMPRESSION: 1. Significantly limited ultrasound. 2. Diffusely heterogeneous liver with intrahepatic and extrahepatic bile duct dilatation as well as pancreatic duct dilatation. Underlying liver and/or pancreatic masses cannot be excluded. CT or MRI recommended. The latter could be performed using routine as well as MRCP protocol. 3. Echogenic kidneys, right being smaller than the left. This may be due to underlying medical renal disease. Bilateral renal cysts. 4. Ectasia of the infrarenal aorta. Signed: Arash Thacker MD Report Verified Date/Time:02/21/2017 09:26:31 Reading Location: [facility] Radiology Reading Room Procedure Note Interface, External Ris In - 02/21/2017 9:28 AM CDT FINAL REPORT Technique: Sonographic images of the abdomen obtained COMPARISON: None FINDINGS: Exam is significantly limited as patient was unable to lay motionless or suspend respiration for the exam. Liver is diffusely heterogeneous. There is intra and extra hepatic bile duct dilatation. Underlying mass lesions cannot be excluded. Liver measures 15.9 cm. Gallbladder is surgically absent. Spleen is not seen. Common bile duct measures 10 mm. Portal vein measures 8 mm. Right kidney is small and echogenic. It measures 8 cm without gross hydronephrosis or mass. A cyst in the lower pole of the right kidney seen. Left kidney measures 12 cm. No hydronephrosis or mass. It appears echogenic. Left renal cyst is seen measuring up to 2 cm. Pancreatic duct is dilated measuring 9 mm. Pancreas is not well seen. IVC appears patent. Calcified aorta are noted. There is ectasia of the infrarenal aorta measuring up to 2.5 cm. There is trace ascites. No pleural effusions. IMPRESSION: 1. Significantly limited ultrasound. 2. Diffusely heterogeneous liver with intrahepatic and extrahepatic bile duct dilatation as well as pancreatic duct dilatation. Underlying liver and/or pancreatic masses cannot be excluded. CT or MRI recommended. The latter could be performed using routine as well as MRCP protocol. 3. Echogenic kidneys, right being smaller than the left. This may be due to underlying medical renal disease. Bilateral renal cysts. 4. Ectasia of the infrarenal aorta. Signed: Arash Thacker MD Report Verified Date/Time: 02/21/2017 09:26:31 Reading Location: [facility] Radiology Reading Room Prothrombin time/INR (02/21/2017 8:13 AM) Component Value Ref Range Protime 11.4 9.3 - 12.0 seconds INR 1.1 <=5.9 Specimen Performing Laboratory [facility] [address] [place] [id number] Narrative RECOMMENDED COUMADIN/WARFARIN INR THERAPY RANGES STANDARD DOSE: 2.0 - 3.0 Includes: PROPHYLAXIS for venous thrombosis, systemic embolization; TREATMENT for venous thrombosis and/or pulmonary embolus. HIGH RISK: Target INR is 2.5-3.5 for patients with mechanical heart valves. Hemoglobin A1c (02/21/2017 8:13 AM) Component Value Ref Range Hemoglobin A1C 4.9 4.3 - 6.1 % Specimen Performing Laboratory [facility] [address] [place] [id number] Urinalysis w/Microscopic (02/20/2017 11:16 PM) Component Value Ref Range Color, UA Yellow Clarity, UA Cloudy Specific Husser, UA 1.020 1.001 - 1.035 pH, UA 5.5 5.0 - 8.0 Protein, UA 100 mg/dL (A) Negative Glucose, UA Negative Negative Ketones, UA Negative Negative Bilirubin, UA Negative Negative Blood, UA Large (A) Negative Nitrite, UA Positive (A) Negative Leukocytes, UA Moderate (A) Negative Urobilinogen, UA 0.2 0.2 - 1.0 mg/dL Bacteria, UA Many RBC, UA 50-100 /HPF WBC, UA 10-20 /HPF SQUAMOUS EPITHELIAL <5 /HPF Specimen Source Specimen Performing Laboratory Urine - Urine, [facility] [address] [place] [id number] Peripheral Blood Smear - Path Review (02/20/2017 11:13 PM) Component Value Ref Range RBC Morphology Alexandru Cells PolychromasiaComment: Normochromic normocytic anemia with slight polychromasia and a few alexandru cells. WBC Morphology Left Shift Toxic Granulation BlastsComment: Leukocytosis with neutrophilia with toxic granulation. Left shift including bands, metamyelocytes, myelocytes, promyelocytes and a rare possible blast. Platelet Morphology Large Platelets Pathologist Review Peripheral granulocytosis with circulating forms beyond band level suggestive of myeloproliferative process. Clinical correlation is suggested. Pathologist Amy Orozco M.D. (electronic signature) Specimen Performing Laboratory [facility] [address] [place] [id number] Blood culture (02/20/2017 11:13 PM)Only the most recent of2 resultswithin the time period is included. Component Value Ref Range Result No growth in 5 days Specimen Performing Laboratory Blood - Arm, Right [facility] [address] [facility] [place] [address] after 01/13/2017
--- OUTSIDE RECORDS SUMMARY | 2018-01-14 08:51 | XMS REPORT ---
:1955 Author Organization [facility] Address [address] [place] [address] Care Team Providers Name Role Phone DHARMESH STOVALL Unavailable Unavailable Problems This patient has no known problems. Allergies, Adverse Reactions, Alerts This patient has no known allergies or adverse reactions. Medications This patient has no known medications. Results Test Description Test Time Test Comments Text Results Atomic Results Result Comments ANG, NON-TUNNELED CATH >5 Y.O. 2017-06-27 10:01:00 FINAL REPORT PATIENT ID : FLUORO [id number] Procedure: Placement of a nontunneled hemodialysis catheter. [...] dilated using multiple dilators up to 13 [place]. A 15 cm nontunneled " Trialysis" catheter [...] using sonographic and fluoroscopic guidance. Signed: Arash Henderson MDReport Verified Date/Time: 06/27/2017 10:01:07 Reading Location: [facility] Radiology Reading Room US CULTURE + SMEAR 2017-04-02 18:17:00 Test Item Value Reference Range Comments CULTURE (BEAKER) (test jrsg=4712) No fungus isolated in 28 days FUNGUS SMEAR (BEAKER) (test zdjh=5092) No fungi seen CBC W/PLT COUNT & AUTO [id number] 09:37:00 Test Item Value Reference Range Comments WHITE BLOOD CELL COUNT (BEAKER) (test znan=166) 29.5 K/ L 4.0-10.0 RED BLOOD CELL COUNT (BEAKER) (test cckz=094) 2.65 M/ L 4.20-5.80 HEMOGLOBIN (BEAKER) (test liuo=719) 8.0 GM/DL 13.0-16.8 HEMATOCRIT (BEAKER) (test bqjo=169) 24.3 % 40.0-50.0 MEAN CORPUSCULAR VOLUME (BEAKER) (test ukic=307) 91.6 fL 82.0-98.0 MEAN CORPUSCULAR HEMOGLOBIN (BEAKER) (test 30.1 pg 27.0-33.0 gmtm=438) MEAN CORPUSCULAR HEMOGLOBIN CONC (BEAKER) (test 32.9 GM/DL 32.0-36.0 anms=113) RED CELL DISTRIBUTION WIDTH (BEAKER) (test 16.2 % 10.3-14.2 ybyc=592) PLATELET COUNT (BEAKER) (test phkp=254) 168 K/CU MM 150-430 MEAN PLATELET VOLUME (BEAKER) (test bngk=433) 11.3 fL 6.5-10.5 NUCLEATED RED BLOOD CELLS (BEAKER) (test 0 /100 WBC 0-0 gmgq=186) (MANUAL DIFFERENTIAL)2017-03-07 09:37:00 Test Item Value Reference Range Comments NEUTROPHILS - REL (DIFF) (BEAKER) (test 87 % kvik=9769) LYMPHOCYTES - REL (DIFF) (BEAKER) (test 7 % uvvz=1751) MONOCYTES - REL (DIFF) (BEAKER) (test cljc=9746) 4 % EOSINOPHILS - REL (DIFF) (BEAKER) (test 1 % pcev=9263) BASOPHILS - REL (DIFF) (BEAKER) (test digl=5715) 1 % NEUTROPHILS - ABS (DIFF) (BEAKER) (test 25.67 K/ L 1.80-8.00 wdmp=1049) LYMPHOCYTES - ABS (DIFF) (BEAKER) (test 2.07 K/ L 1.48-4.50 wyja=4812) MONOCYTES - ABS (DIFF) (BEAKER) (test akzl=0749) 1.18 K/ L 0.00-1.30 EOSINOPHILS - ABS (DIFF) (BEAKER) (test 0.30 K/ L 0.00-0.50 lwqp=1261) BASOPHILS - ABS (DIFF) (BEAKER) (test egss=8708) 0.30 K/ L 0.00-0.20 TOTAL COUNTED (BEAKER) (test hjch=5235) 100 WBC MORPHOLOGY (BEAKER) (test wqcj=632) Normal PLT MORPHOLOGY (BEAKER) (test fqsf=941) Normal POLYCHROMATOPHILLIC RBCS(BEAKER) (test xrzu=908) 1+ few STOMATOCYTES (BEAKER) (test fcfp=586) 1+ few SPUTUM CULTURE + GRAM [id number] 08:10:00 Test Item Value Reference Range Comments CULTURE (BEAKER) (test 3+ Normal respiratory yeni sspz=3771) present GRAM STAIN RESULT (BEAKER) 2+ WBCs (test qbhf=9201) GRAM STAIN RESULT (BEAKER) 0-5 epithelial cells (test rpyc=12571) GRAM STAIN RESULT (BEAKER) 3+ gram negative rods (test wenv=24360) GRAM STAIN RESULT (BEAKER) 1+ yeast (test stws=869096) GRAM STAIN RESULT (BEAKER) <1+ gram positive cocci in pairs (test zgnj=660408) CSF CULTURE + GRAM [id number] 08:09:00 Test Item Value Reference Range Comments CULTURE (BEAKER) (test ezeg=5564) No growth GRAM STAIN RESULT (BEAKER) (test 1+ WBCs cxfb=3122) GRAM STAIN RESULT (BEAKER) (test No organisms seen xgqi=83836) COMPREHENSIVE METABOLIC [id number] 05:17:00 Test Item Value Reference Range Comments TOTAL PROTEIN (BEAKER) 6.0 gm/dL 6.0-8.5 (test otti=870) ALBUMIN (BEAKER) (test 1.7 g/dL 3.5-5.0 rngo=9076) ALKALINE PHOSPHATASE 160 U/L 30-115 (BEAKER) (test talv=467) BILIRUBIN TOTAL (BEAKER) 0.4 mg/dL 0.1-1.2 (test sgdp=213) SODIUM (BEAKER) (test 134 meq/L 135-148 onvw=502) POTASSIUM (BEAKER) (test 3.8 meq/L 3.6-5.5 ohxb=735) CHLORIDE (BEAKER) (test 104 meq/L 98-106 udyv=260) CO2 (BEAKER) (test 23 meq/L 20-29 debi=039) BLOOD UREA NITROGEN 28 mg/dL 10-26 (BEAKER) (test rhsq=864) CREATININE (BEAKER) (test 2.50 mg/dL 0.50-1.20 nvtk=622) GLUCOSE RANDOM (BEAKER) 92 mg/dL 70-110 (test nxea=105) CALCIUM (BEAKER) (test 8.1 mg/dL 8.5-10.5 afkf=769) AST (SGOT) (BEAKER) (test 18 U/L 5-40 ochq=573) ALT (SGPT) (BEAKER) (test 11 U/L 5-50 qmxd=720) EGFR (BEAKER) (test 26 mL/min/1.73 sq m ESTIMATED GFR IS NOT dfqo=8875) ACCURATE CREATININE CLEARANCE IN PREDICTING GLOMERULAR FILTRATION RATE. ESTIMATED GFR IS NOT APPLICABLE FOR DIALYSIS PATIENTS. [id number] 05:09:00 Test Item Value Reference Range Comments PHOSPHORUS (BEAKER) (test rlqo=823) 4.2 mg/dL 2.5-4.5 [id number] 05:04:00 Test Item Value Reference Range Comments MAGNESIUM (BEAKER) (test udza=457) 1.7 mg/dL 1.5-3.0 CLOSTRIDIUM DIFFICILE TOXIN [id number] 21:29:00 Test Item Value Reference Range Comments CLOSTRIDIUM DIFFICILE TOXIN, PCR (BEAKER) (test Not Detected Not Detected dpqd=2824) This qualitative real-time polymerase chain reaction assay detects the tcdB gene , encoded on the C.difficile pathogenicity locus (PaLoc). The product of tcdB, toxin B, is a cytotoxin essential for causing C.difficile-associated disease ( CDAD) and is found in virtually all toxigenic C.difficile.This assay is performed for patients suspected of having either community-acquired or nosocomial CDAD. Accordingly, only symptomatic patients should be tested and formed stools will be rejected unless ileus is present (i.e., specified when ordering). Patients may be colonized with toxigenic C.difficile strains not causing active disease; therefore, clinical correlation is needed when deciding how to manage patients with a positive test result.The assay has not been validated as a test of cure as amplifiable nucleic acid may persist after effective treatment; therefore, follow-up testing of a positive result is not recommended.This qualitative real-time polymerase chain reaction assay detects the tcdB gene, encoded on the C.difficile pathogenicity locus (PaLoc). The product of tcdB, toxin B, is a cytotoxin essential for causing C.difficile- associated disease (CDAD) and is found in virtually all toxigenic C.difficile.This assay is performed for patients suspected of having either community-acquired or nosocomial CDAD. Accordingly, only symptomatic patients should be tested and formed stools will berejected unless ileus is present (i.e. , specified when ordering). Patients may be colonized with toxigenic C.difficile strains not causing active disease; therefore, clinical correlation is needed when deciding how to manage patients with a positive test result.The assay has not been validated as a test of cure as amplifiable nucleic acid may persist after effective treatment; therefore, follow-up testing of a positive result is not recommended.POCT-GLUCOSE [id number] 18:26:00 Test Item Value Reference Range Comments POC-GLUCOSE METER (BEAKER) 128 mg/dL 70-110 TESTED AT [address] (test zsxk=9000) [facility] [id number] POCT-GLUCOSE [id number] 11:59:00 Test Item Value Reference Range Comments POC-GLUCOSE METER (BEAKER) 113 mg/dL 70-110 TESTED AT [address] (test miod=0949) [facility] [id number] CBC W/PLT COUNT & AUTO [id number] 08:30:00 Test Item Value Reference Range Comments WHITE BLOOD CELL COUNT (BEAKER) (test pkud=124) 36.9 K/ L 4.0-10.0 RED BLOOD CELL COUNT (BEAKER) (test kleo=056) 2.86 M/ L 4.20-5.80 HEMOGLOBIN (BEAKER) (test ljcv=273) 8.5 GM/DL 13.0-16.8 HEMATOCRIT (BEAKER) (test zasp=281) 26.0 % 40.0-50.0 MEAN CORPUSCULAR VOLUME (BEAKER) (test qsiw=046) 90.7 fL 82.0-98.0 MEAN CORPUSCULAR HEMOGLOBIN (BEAKER) (test 29.5 pg 27.0-33.0 nbvq=043) MEAN CORPUSCULAR HEMOGLOBIN CONC (BEAKER) (test 32.6 GM/DL 32.0-36.0 sgah=545) RED CELL DISTRIBUTION WIDTH (BEAKER) (test 16.3 % 10.3-14.2 njha=885) PLATELET COUNT (BEAKER) (test fsbs=152) 197 K/CU MM 150-430 MEAN PLATELET VOLUME (BEAKER) (test ghmg=962) 11.8 fL 6.5-10.5 NUCLEATED RED BLOOD CELLS (BEAKER) (test 0 /100 WBC 0-0 svvu=596) (MANUAL DIFFERENTIAL)2017-03-06 08:30:00 Test Item Value Reference Range Comments NEUTROPHILS - REL (DIFF) (BEAKER) (test 73 % suxy=4312) LYMPHOCYTES - REL (DIFF) (BEAKER) (test 10 % aoox=3225) MONOCYTES - REL (DIFF) (BEAKER) (test vxoa=8505) 17 % NEUTROPHILS - ABS (DIFF) (BEAKER) (test 26.94 K/ L 1.80-8.00 uxcn=2481) LYMPHOCYTES - ABS (DIFF) (BEAKER) (test 3.69 K/ L 1.48-4.50 lnwr=4166) MONOCYTES - ABS (DIFF) (BEAKER) (test qgvw=5077) 6.27 K/ L 0.00-1.30 TOTAL COUNTED (BEAKER) (test pcts=3946) 100 WBC MORPHOLOGY (BEAKER) (test cpqz=203) Normal PLT MORPHOLOGY (BEAKER) (test wdqv=160) Normal ANISOCYTOSIS (BEAKER) (test iiop=334) 1+ few BASIC METABOLIC [id number] 07:16:00 Test Item Value Reference Range Comments SODIUM (BEAKER) (test 136 meq/L 135-148 plqh=851) POTASSIUM (BEAKER) (test 3.7 meq/L 3.6-5.5 niqy=137) CHLORIDE (BEAKER) (test 104 meq/L 98-106 lbpi=718) CO2 (BEAKER) (test 25 meq/L 20-29 zxdw=370) BLOOD UREA NITROGEN 21 mg/dL 03-06 (BEAKER) (test hlaa=794) CREATININE (BEAKER) (test 2.10 mg/dL 0.50-1.20 hauq=980) GLUCOSE RANDOM (BEAKER) 116 mg/dL 70-110 (test jtjv=190) CALCIUM (BEAKER) (test 7.9 mg/dL 8.5-10.5 paru=523) EGFR (BEAKER) (test 32 mL/min/1.73 sq m ESTIMATED GFR IS NOT trdp=6353) ACCURATE CREATININE CLEARANCE IN PREDICTING GLOMERULAR FILTRATION RATE. ESTIMATED GFR IS NOT APPLICABLE FOR DIALYSIS PATIENTS. [id number] 07:13:00 Test Item Value Reference Range Comments PHOSPHORUS (BEAKER) (test bafx=627) 3.6 mg/dL 2.5-4.5 [id number] 07:09:00 Test Item Value Reference Range Comments MAGNESIUM (BEAKER) (test meuf=714) 1.4 mg/dL 1.5-3.0 POCT-GLUCOSE [id number] 01:11:00 Test Item Value Reference Range Comments POC-GLUCOSE METER (BEAKER) 110 mg/dL 70-110 TESTED AT [address] (test fgzm=9688) [facility] [address] POCT-GLUCOSE [id number] 00:51:00 Test Item Value Reference Range Comments POC-GLUCOSE METER (BEAKER) 114 mg/dL 70-110 TESTED AT [address] (test lvhz=6042) [facility] [address] CT, CHEST, WITH [id number] 17:34:00Per Reji Bauman and Dr. Do REPORT DOSE REDUCTION: The examination was performed [...] is a small to moderate left pleural effusion.There is a small right pleural effusion. There is lower lobe consolidation, likely atelectasis. There are nonspecific groundglass opacities bilaterally, most likely due to edema. Heart is enlarged. No significant mediastinal or hilar lymphadenopathy. Vascular calcifications are seen. Feeding tube identified. Right internal jugular nontunneled dialysis catheter identified. No definite suspicious liverlesion. No arterially enhancing foci. There is moderate intra and extra hepatic bile duct dilatationwith smooth tapering distally. Correlation with history and LFTs recommended. Some of this could be due to cholecystectomy but distally obstructing mass cannot be excluded. The pancreas is markedly heterogeneous with extensive calcifications throughout. A gross pancreatic mass is not seen but a subtlelesion cannot be excluded. There are multiple prominent [...] x 3 cm. This may represent old hematoma/ seroma or some bursal fluid. There is no [...] Mild wall thickening involving a few small bowelloops bowel loops may be due to ascites/ hypoalbuminemia. Mild enteritis is possible. 5. Small amountof fluid posterior to the right psoas muscle, and along the right iliac is muscle be due to old hematoma/seroma or some bursal fluid. No gas within the collection to suggest definitive abscess. Signed:Arash Henderson MDReport Verified Date/Time: 03/05/2017 17:34:00 Reading Location: [facility] Radiology Reading Room CT, [id number] 17:34: 00CT abd/pelvis with and without iv contrast liver protocol to exclude liver liesion and also oral contrast to exclude colitisContrast ok Per Reji Bauman [facility] REPORT DOSE REDUCTION: The examination was performed [...] is a small to moderate left pleural effusion.There is a small right pleural effusion. There is lower lobe consolidation, likely atelectasis. There are nonspecific groundglass opacities bilaterally, most likely due to edema. Heart is enlarged. No significant mediastinal or hilar lymphadenopathy. Vascular calcifications are seen. Feeding tube identified. Right internal jugular nontunneled dialysis catheter identified. No definite suspicious liverlesion. No arterially enhancing foci. There is moderate intra and extra hepatic bile duct dilatationwith smooth tapering distally. Correlation with history and LFTs recommended. Some of this could be due to cholecystectomy but distally obstructing mass cannot be excluded. The pancreas is markedly heterogeneous with extensive calcifications throughout. A gross pancreatic mass is not seen but a subtlelesion cannot be excluded. There are multiple prominent lymph nodes adjacent to the head of the pancreas, along the gastrohepatic ligament, mlainda hepatis, as well as in the mesentery. [...] Mild wall thickening involving a few small bowelloops bowel loops may be due to ascites/hypoalbuminemia. Mild enteritis is possible. 5. Small amountof fluid posterior to the right psoas muscle, and along the right iliac is muscle be due to old hematoma/seroma or some bursal fluid. No gas within the collection to suggest definitive abscess. Signed:Arash Henderson Verified Date/Time: 17:34:00 Reading Location: [facility] Radiology Reading Room CT, BRAIN, WITH [id number] 17:08:00FINAL REPORT CT head with contrast 03/05/2017 5:04 PM CLINICAL HISTORY: encephalopathy, r/o brain masses TECHNIQUE: Axial contrast-enhanced CT images of the head were obtained. This examination was performed according to our departmental dose optimization program, which includesautomated exposure control, adjustment of the mA and/or kV according to patient size, and/or use of iterated reconstruction technique. COMPARISON: None available FINDINGS: There is no mass, hydrocephalus, extra- axial collection, midline shift, or abnormal intracranial enhancement. There is no evident hemorrhage. There is atherosclerotic calcification of the intracranial arterial vasculature. There isgeneralized parenchymal volume loss. The visualized paranasal sinuses and mastoid air cells are wellaerated. The skull is intact. There are subcentimeter metallic density foreign bodies in the subcutaneous tissue overlying the left maxillary sinus and within the posterior wall of the left maxillary sinus. The skull is otherwise intact. IMPRESSION: Unremarkable postcontrast examination. Signed: Aquiles Sellers Verified Date/Time: 03/05/2017 17:08:24 Reading Location: [facility] Radiology Reading Room Electronically signed by: AQUILES SELLERS M.D. on 05:08 PMINDIA INK [id number] 13:35:00 Test Item Value Reference Range Comments LIOR INK (BEAKER) No encapsulated yeast seen No encapsulated yeast seen (test wcze=3072) POCT-GLUCOSE [id number] 12:20:00 Test Item Value Reference Range Comments POC-GLUCOSE METER (BEAKER) 114 mg/dL 70-110 TESTED AT [facility] [address] (test gpuh=5017) [address] [facility] [address] CATHETER TIP [id number] 08:42:00 Test Item Value Reference Range Comments CULTURE (BEAKER) (test zjzo=6085) No growth CBC W/PLT COUNT & AUTO [id number] 07:46:00 Test Item Value Reference Range Comments WHITE BLOOD CELL COUNT (BEAKER) (test kale=542) 19.5 K/ L 4.0-10.0 RED BLOOD CELL COUNT (BEAKER) (test jtls=737) 2.96 M/ L 4.20-5.80 HEMOGLOBIN (BEAKER) (test nwwm=213) 9.0 GM/DL 13.0-16.8 HEMATOCRIT (BEAKER) (test hilm=447) 26.9 % 40.0-50.0 MEAN CORPUSCULAR VOLUME (BEAKER) (test tqfj=763) 90.9 fL 82.0-98.0 MEAN CORPUSCULAR HEMOGLOBIN (BEAKER) (test 30.3 pg 27.0-33.0 zxqp=194) MEAN CORPUSCULAR HEMOGLOBIN CONC (BEAKER) (test 33.3 GM/DL 32.0-36.0 qxxe=556) RED CELL DISTRIBUTION WIDTH (BEAKER) (test 16.7 % 10.3-14.2 ioqo=165) PLATELET COUNT (BEAKER) (test zyxd=283) 188 K/CU MM 150-430 MEAN PLATELET VOLUME (BEAKER) (test zczp=410) 11.5 fL 6.5-10.5 NUCLEATED RED BLOOD CELLS (BEAKER) (test 0 /100 WBC 0-0 zemq=098) NEUTROPHILS RELATIVE PERCENT (BEAKER) (test 79 % jlat=160) LYMPHOCYTES RELATIVE PERCENT (BEAKER) (test 9 % nsff=622) MONOCYTES RELATIVE PERCENT (BEAKER) (test 11 % wowq=620) EOSINOPHILS RELATIVE PERCENT (BEAKER) (test 0 % utqf=870) BASOPHILS RELATIVE PERCENT (BEAKER) (test 0 % vqxo=602) NEUTROPHILS ABSOLUTE COUNT (BEAKER) (test 15.40 K/ L 1.80-8.00 kbku=674) LYMPHOCYTES ABSOLUTE COUNT (BEAKER) (test 1.80 K/ L 1.48-4.50 uvox=445) MONOCYTES ABSOLUTE COUNT (BEAKER) (test 2.20 K/ L 0.00-1.30 kmrr=787) EOSINOPHILS ABSOLUTE COUNT (BEAKER) (test 0.00 K/ L 0.00-0.50 hmen=816) BASOPHILS ABSOLUTE COUNT (BEAKER) (test 0.10 K/ L 0.00-0.20 ltcb=361) COMPREHENSIVE METABOLIC [id number] 06:57:00 Test Item Value Reference Range Comments TOTAL PROTEIN (BEAKER) 6.3 gm/dL 6.0-8.5 Specimen slightly (test vapq=749) hemolyzed ALBUMIN (BEAKER) (test 1.6 g/dL 3.5-5.0 Specimen slightly ysia=9861) hemolyzed ALKALINE PHOSPHATASE 243 U/L 30-115 (BEAKER) (test fctr=467) BILIRUBIN TOTAL (BEAKER) 0.4 mg/dL 0.1-1.2 Specimen slightly (test okyo=094) hemolyzed SODIUM (BEAKER) (test 136 meq/L 135-148 ijmj=864) POTASSIUM (BEAKER) (test 4.9 meq/L 3.6-5.5 Specimen slightly uxhk=120) hemolyzed CHLORIDE (BEAKER) (test 103 meq/L 98-106 hczl=046) CO2 (BEAKER) (test 23 meq/L 20-29 aycl=524) BLOOD UREA NITROGEN 37 mg/dL 10-26 (BEAKER) (test ndrg=685) CREATININE (BEAKER) (test 2.80 mg/dL 0.50-1.20 Specimen slightly gcad=411) hemolyzed GLUCOSE RANDOM (BEAKER) 132 mg/dL 70-110 (test vfyf=895) CALCIUM (BEAKER) (test 7.9 mg/dL 8.5-10.5 iuzx=983) AST (SGOT) (BEAKER) (test 29 U/L 5-40 Specimen slightly qxqd=239) hemolyzed ALT (SGPT) (BEAKER) (test 15 U/L 5-50 Specimen slightly gacj=999) hemolyzed EGFR (BEAKER) (test 23 mL/min/1.73 sq m ESTIMATED GFR IS NOT eczu=1123) ACCURATE CREATININE CLEARANCE IN PREDICTING GLOMERULAR FILTRATION RATE. ESTIMATED GFR IS NOT APPLICABLE FOR DIALYSIS PATIENTS. [id number] 06:52:00 Test Item Value Reference Range Comments PHOSPHORUS (BEAKER) (test 4.7 mg/dL 2.5-4.5 Specimen slightly hemolyzed jkdh=918) [id number] 06:46:00 Test Item Value Reference Range Comments MAGNESIUM (BEAKER) (test 1.6 mg/dL 1.5-3.0 Specimen slightly hemolyzed ehpb=037) POCT-GLUCOSE [id number] 00:32:00 Test Item Value Reference Range Comments POC-GLUCOSE METER (BEAKER) 104 mg/dL 70-110 TESTED AT [address] (test soot=2714) [address] [facility] [address] RAD, ABDOMEN/KUB 1 VIEW [id number] 21:56:00Reason for exam:->s/p dobhoff placementFINAL REPORT Abdomen, one view CLINICAL INDICATION: Status post Dobbhoff placement COMPARISON: None FINDINGS:The tip of the feeding tube lies within the gastric body along the greater curvature of the stomach. The bowel gas pattern is nonspecific. Signed: Chepe Do MDReport Verified Date/Time: 03/04/2017 21:56:12 Reading Location: [address] Consult Reading Room ANG, NON-TUNNELED DIALYSIS CATH, [id number] 16:25 :00Reason for exam:->Oziel catheter placementFINAL REPORT Fluoroscopic-guided lumbar puncture and nontunneled dialysis catheter insertion History: Sepsis, meningitis, renal failure. Dairy Hand: Chepe Harvey MD. Medication: None. Anesthesia: 5 cc of 1% lidocaine without epinephrine. Contrast: None. Fluoroscopy Time: 1.5 min. Reference Air Kerma (Ka, r): 233 mGy. Specimen: 1 cc of serosanguineous CSF. Discussion: All elements maximal sterile barrier technique was utilized for thisprocedure, including utilization of sterile scrub solution for skin prep, a large sterile sheet to cover the areas of the patient that were not prepped, and hand hygiene, mask, head covering, and sterile gown for performing radiologist and scrub technologist. After informed consent was obtained, the patient's back was prepped and draped in a sterile fashion. The skin was anesthetized with 1%lidocaine without epinephrine. Using fluoroscopic guidance, a 22 [...] jugular vein, which was punctured under direct real- time ultrasound guidance with a micropuncture needle. An [...] sonographic and fluoroscopic guidance. Signed: Chepe Harvey MDReport Verified Date/Time: 03/04/2017 16:25:02 Reading Location: [facility] Radiology Reading Room 04: 25 PMFL, LUMBAR PUNCTURE, [id number] 16:25:00Reason for exam:-> meningitisFINAL REPORT Fluoroscopic-guided lumbar puncture and nontunneled dialysis catheter insertion History: Sepsis, meningitis, renal failure. Dairy Hand: Chepe Harvey MD. Medication: None. Anesthesia: 5 cc of 1% lidocaine without epinephrine. Contrast: None. Fluoroscopy Time: 1.5 min. Reference Air Kerma (Ka, r): 233 mGy. Specimen: 1 cc of serosanguineous CSF. Discussion: All elements maximal sterile barrier technique was utilized for thisprocedure, including utilization of sterile scrub solution for skin prep, a large sterile sheet to cover the areas of the patient that were not prepped, and hand hygiene , mask, head covering, and sterile gown for [...] sonographic and fluoroscopic guidance. Signed: Chepe Harvey Verified Date/Time: 03/04/2017 16:25:02 Reading Location: [facility] Radiology Reading Room [id number] 11:32:00 Test Item Value Reference Range Comments PROTIME (BEAKER) (test tbdv=394) 10.8 seconds 9.3-12.0 INR (BEAKER) (test jyas=163) 1.0 <=5.9 PARTIAL THROMBOPLASTIN TIME (BEAKER) (test 29.2 seconds 23.0-35.0 hhsh=233) RECOMMENDED COUMADIN/WARFARIN INR THERAPY RANGESSTANDARD DOSE: 2.0 - 3.0 Includes: PROPHYLAXIS forvenous thrombosis, systemic embolization; TREATMENT for venous thrombosis and/or pulmonary embolus.HIGH RISK: Target INR is 2.5-3.5 for patients with mechanical heart valves.OCCULT BLOOD, [id number] 10:47:00 Test Item Value Reference Range Comments FECAL OCCULT BLOOD (BEAKER) (test ruqw=250) Positive Negative RAD, CHEST, 1 VIEW, NON [id number] 09:28:00Reason for exam:->abnormal chest soundsShould this be performed at the bedside?->YesFINAL REPORT Chest, one view. HISTORY: Abnormal chest sounds COMPARISON: 03/01/2017 IMPRESSION: Interval removal of right-sided Oziel catheter. Persistent retrocardiac opacification which could represent a combination of trace left pleural effusion with atelectasis and/or focal airspace disease/pneumonia. No new focal consolidation. Unchanged mild central venous congestion. Unchanged enlargement of the cardiomediastinal silhouette. Signed: Chepe Harvey Verified Date/Time: 03/04/2017 09:28:45 Reading Location: [facility] Radiology Reading Room BLOOD GAS, [id number] 09:03:00 Test Item Value Reference Range Comments PH ARTERIAL (BEAKER) (test xepm=117) 7.42 7.35-7.45 PCO2 ARTERIAL (BEAKER) (test bnfd=743) 34 mmHg 35-45 PO2 ARTERIAL (BEAKER) (test njna=743) 105 mmHg 80-90 O2 SATURATION ARTERIAL (BEAKER) (test zjqa=377) 97.9 % 96.0-97.0 HCO3 ARTERIAL (BEAKER) (test nuci=730) 21 mmol/L 21-29 BASE EXCESS ARTERIAL (BEAKER) (test ixbo=597) -2.6 mmol/L -2.0-3.0 PATIENT TEMPERATURE (BEAKER) (test ylmn=2269) 37.0 C FIO2 (BEAKER) (test tuff=3558) 28.0 % CBC W/PLT COUNT & AUTO [id number] 06:42:00 Test Item Value Reference Range Comments WHITE BLOOD CELL COUNT (BEAKER) (test rlvn=476) 25.6 K/ L 4.0-10.0 RED BLOOD CELL COUNT (BEAKER) (test bavk=049) 3.20 M/ L 4.20-5.80 HEMOGLOBIN (BEAKER) (test rzqv=209) 9.5 GM/DL 13.0-16.8 HEMATOCRIT (BEAKER) (test ayvh=129) 29.3 % 40.0-50.0 MEAN CORPUSCULAR VOLUME (BEAKER) (test lult=691) 91.5 fL 82.0-98.0 MEAN CORPUSCULAR HEMOGLOBIN (BEAKER) (test 29.6 pg 27.0-33.0 rbwa=190) MEAN CORPUSCULAR HEMOGLOBIN CONC (BEAKER) (test 32.3 GM/DL 32.0-36.0 kzau=163) RED CELL DISTRIBUTION WIDTH (BEAKER) (test 16.7 % 10.3-14.2 iomw=789) PLATELET COUNT (BEAKER) (test cazs=576) 195 K/CU MM 150-430 MEAN PLATELET VOLUME (BEAKER) (test zjit=486) 11.4 fL 6.5-10.5 NUCLEATED RED BLOOD CELLS (BEAKER) (test 0 /100 WBC 0-0 zhsu=112) NEUTROPHILS RELATIVE PERCENT (BEAKER) (test 83 % chfj=032) LYMPHOCYTES RELATIVE PERCENT (BEAKER) (test 7 % nkft=004) MONOCYTES RELATIVE PERCENT (BEAKER) (test 10 % eowj=885) EOSINOPHILS RELATIVE PERCENT (BEAKER) (test 1 % tmno=721) BASOPHILS RELATIVE PERCENT (BEAKER) (test 0 % pste=701) NEUTROPHILS ABSOLUTE COUNT (BEAKER) (test 21.10 K/ L 1.80-8.00 ibiz=356) LYMPHOCYTES ABSOLUTE COUNT (BEAKER) (test 1.70 K/ L 1.48-4.50 hmmg=077) MONOCYTES ABSOLUTE COUNT (BEAKER) (test 2.60 K/ L 0.00-1.30 erzk=617) EOSINOPHILS ABSOLUTE COUNT (BEAKER) (test 0.10 K/ L 0.00-0.50 yowm=954) BASOPHILS ABSOLUTE COUNT (BEAKER) (test 0.10 K/ L 0.00-0.20 jfge=502) (MANUAL DIFFERENTIAL)2017-03-04 06:42:00 Test Item Value Reference Range Comments NEUTROPHILS - REL (DIFF) (BEAKER) (test 87 % yrvi=4986) LYMPHOCYTES - REL (DIFF) (BEAKER) (test 5 % pkvr=3616) MONOCYTES - REL (DIFF) (BEAKER) (test hikh=3455) 7 % METAMYELOCYTES-REL (DIFF) (BEAKER) (test 1 % 0-0 bpbz=774) NEUTROPHILS - ABS (DIFF) (BEAKER) (test 22.27 K/ L 1.80-8.00 etec=0808) LYMPHOCYTES - ABS (DIFF) (BEAKER) (test 1.28 K/ L 1.48-4.50 aruu=7888) MONOCYTES - ABS (DIFF) (BEAKER) (test rfxx=8005) 1.79 K/ L 0.00-1.30 METAMYELOCTYES - ABS (DIFF) (BEAKER) (test 0.26 K/ L 0.00-0.00 rhqc=601) TOTAL COUNTED (BEAKER) (test anmi=5066) 100 WBC MORPHOLOGY (BEAKER) (test xxni=341) Normal LARGE PLT(BEAKER) (test qotn=0926) Present ANISOCYTOSIS (BEAKER) (test ftlq=880) 1+ few HYPOCHROMIA (BEAKER) (test fmuu=037) 1+ few COMPREHENSIVE METABOLIC [id number] 06:09:00 Test Item Value Reference Range Comments TOTAL PROTEIN (BEAKER) 6.6 gm/dL 6.0-8.5 (test rtwc=436) ALBUMIN (BEAKER) (test 1.8 g/dL 3.5-5.0 ebkt=8684) ALKALINE PHOSPHATASE 323 U/L 30-115 (BEAKER) (test fbsy=712) BILIRUBIN TOTAL (BEAKER) 0.5 mg/dL 0.1-1.2 (test abwq=638) SODIUM (BEAKER) (test 137 meq/L 135-148 hruu=467) POTASSIUM (BEAKER) (test 5.0 meq/L 3.6-5.5 swla=817) CHLORIDE (BEAKER) (test 106 meq/L 98-106 afwo=547) CO2 (BEAKER) (test 17 meq/L 20-29 pkka=706) BLOOD UREA NITROGEN 70 mg/dL 10-26 (BEAKER) (test bmpf=730) CREATININE (BEAKER) (test 4.30 mg/dL 0.50-1.20 foim=882) GLUCOSE RANDOM (BEAKER) 113 mg/dL 70-110 (test wzwe=621) CALCIUM (BEAKER) (test 8.2 mg/dL 8.5-10.5 yyvf=039) AST (SGOT) (BEAKER) (test 24 U/L 5-40 vovp=894) ALT (SGPT) (BEAKER) (test 11 U/L 5-50 fape=414) EGFR (BEAKER) (test 14 mL/min/1.73 sq m ESTIMATED GFR IS NOT ibio=3420) ACCURATE CREATININE CLEARANCE IN PREDICTING GLOMERULAR FILTRATION RATE. ESTIMATED GFR IS NOT APPLICABLE FOR DIALYSIS PATIENTS. POCT-GLUCOSE [id number] 02:48:00 Test Item Value Reference Range Comments POC-GLUCOSE METER (BEAKER) 102 mg/dL 70-110 TESTED AT [facility] [address] (test yhfx=4317) [address] [facility] [address] [id number] 19:47:00 Test Item Value Reference Range Comments AMMONIA (BEAKER) (test ikgi=204) 19 mol/L 17-80 MR, BRAIN, WITHOUT [id number] 15:57:00FINAL REPORT MRI brain Comparison: No priors Reason for exam: encephalopathyDiscussion: Sagittal and coronal T1, axial FLAIR, T2, gradient echo T2 star, diffusion sequences andADC map images of the brain are provided. There are no intracranial hematomas, mass effect, hydrocephalus, shift, or extra -axial collections. Tiny foci of FLAIR signal abnormality, [...] disease is noted in the maxillary sinuses. Impressions:Tiny foci of intraventricular, and left parietal sulcal signal abnormality /diffusion restriction may reflect meningitis. Suggest correlation with CSF analysis. Signed: Pk Jefferson Verified Date/Time: 03/03/201715:57:57 Reading Location: [facility] Radiology Reading Room CT, BRAIN, WITHOUT [id number] 09:54 :00FINAL REPORT CT head without contrast. Comparisons: February 25, 2017 Reason for exam: AMS. Discussion: Multiple axial CT images of the head are provided without contrast evaluated in brain and bone windows. Dose modulation, iterative reconstruction, and/or weight based adjustment of the mA/kV was utilized to reduce the radiation dose to as low as reasonably achievable. There is no CT evidence of intracranial hemorrhage, mass -effect, hydrocephalus, shift, or extra-axial collections. Incidental note is made of poor dentition with missing teeth and dental caries. Ametallic foreign body is seen in the left paranasal soft tissues and hyperdense foreign material is seen in the left-sided pterygopalatine fossa region. The visualized dural sinus regions, orbital contents, paranasal sinuses, bones and surrounding soft tissues are otherwise unremarkable. Impressions: 1. No specific evidence of acute intracranial abnormality. Signed: Reyes Bhatia Verified Date/ Time: 03/03/2017 09:54:01 Reading Location: [facility] C013V Neuro Reading Room POCT- GLUCOSE [id number] 09:00:00 Test Item Value Reference Range Comments POC-GLUCOSE METER (BEAKER) 129 mg/dL 70-110 TESTED AT [facility] [address] (test yfmv=2507) [address] [facility] [place] [address] CBC W/PLT COUNT & AUTO [id number] 06:06:00 Test Item Value Reference Range Comments WHITE BLOOD CELL COUNT (BEAKER) (test kxap=571) 23.8 K/ L 4.0-10.0 RED BLOOD CELL COUNT (BEAKER) (test pjon=296) 3.19 M/ L 4.20-5.80 HEMOGLOBIN (BEAKER) (test vhbe=361) 9.5 GM/DL 13.0-16.8 HEMATOCRIT (BEAKER) (test yrjd=648) 29.2 % 40.0-50.0 MEAN CORPUSCULAR VOLUME (BEAKER) (test andz=904) 91.5 fL 82.0-98.0 MEAN CORPUSCULAR HEMOGLOBIN (BEAKER) (test 29.7 pg 27.0-33.0 zhaj=439) MEAN CORPUSCULAR HEMOGLOBIN CONC (BEAKER) (test 32.5 GM/DL 32.0-36.0 uyme=136) RED CELL DISTRIBUTION WIDTH (BEAKER) (test 16.8 % 10.3-14.2 mafe=146) PLATELET COUNT (BEAKER) (test qqsx=495) 169 K/CU MM 150-430 MEAN PLATELET VOLUME (BEAKER) (test yxuu=143) 11.6 fL 6.5-10.5 NUCLEATED RED BLOOD CELLS (BEAKER) (test 0 /100 WBC 0-0 bbtu=090) NEUTROPHILS RELATIVE PERCENT (BEAKER) (test 76 % lsru=432) LYMPHOCYTES RELATIVE PERCENT (BEAKER) (test 11 % vahs=632) MONOCYTES RELATIVE PERCENT (BEAKER) (test 12 % rhnk=764) EOSINOPHILS RELATIVE PERCENT (BEAKER) (test 1 % aitw=709) BASOPHILS RELATIVE PERCENT (BEAKER) (test 0 % pgoe=390) NEUTROPHILS ABSOLUTE COUNT (BEAKER) (test 18.10 K/ L 1.80-8.00 kzhs=006) LYMPHOCYTES ABSOLUTE COUNT (BEAKER) (test 2.60 K/ L 1.48-4.50 xdpd=876) MONOCYTES ABSOLUTE COUNT (BEAKER) (test 2.90 K/ L 0.00-1.30 jcno=492) EOSINOPHILS ABSOLUTE COUNT (BEAKER) (test 0.10 K/ L 0.00-0.50 gync=804) BASOPHILS ABSOLUTE COUNT (BEAKER) (test 0.00 K/ L 0.00-0.20 lccp=405) (MANUAL DIFFERENTIAL)2017-03-03 06:06:00 Test Item Value Reference Range Comments NEUTROPHILS - REL (DIFF) (BEAKER) (test 82 % ehfx=8400) LYMPHOCYTES - REL (DIFF) (BEAKER) (test 9 % aprc=4811) MONOCYTES - REL (DIFF) (BEAKER) (test wygc=2015) 7 % METAMYELOCYTES-REL (DIFF) (BEAKER) (test 2 % 0-0 then=554) NEUTROPHILS - ABS (DIFF) (BEAKER) (test 19.52 K/ L 1.80-8.00 khju=7991) LYMPHOCYTES - ABS (DIFF) (BEAKER) (test 2.14 K/ L 1.48-4.50 eleu=9785) MONOCYTES - ABS (DIFF) (BEAKER) (test jclu=8700) 1.67 K/ L 0.00-1.30 METAMYELOCTYES - ABS (DIFF) (BEAKER) (test 0.48 K/ L 0.00-0.00 qooq=322) TOTAL COUNTED (BEAKER) (test kssd=2729) 100 WBC MORPHOLOGY (BEAKER) (test nydv=911) Normal GIANT PLATELETS (BEAKER) (test ohot=552) Present ANISOCYTOSIS (BEAKER) (test nqlu=278) 1+ few COMPREHENSIVE METABOLIC [id number] 06:03:00 Test Item Value Reference Range Comments TOTAL PROTEIN (BEAKER) 6.0 gm/dL 6.0-8.5 (test ardk=270) ALBUMIN (BEAKER) (test 1.7 g/dL 3.5-5.0 aqla=6992) ALKALINE PHOSPHATASE 324 U/L 30-115 (BEAKER) (test ukcp=190) BILIRUBIN TOTAL (BEAKER) 0.4 mg/dL 0.1-1.2 (test odpz=623) SODIUM (BEAKER) (test 136 meq/L 135-148 lywa=512) POTASSIUM (BEAKER) (test 4.4 meq/L 3.6-5.5 rzhm=153) CHLORIDE (BEAKER) (test 105 meq/L 98-106 zbkc=303) CO2 (BEAKER) (test 19 meq/L 20-29 zqnl=390) BLOOD UREA NITROGEN 66 mg/dL 10-26 (BEAKER) (test whhe=317) CREATININE (BEAKER) (test 4.10 mg/dL 0.50-1.20 elmq=571) GLUCOSE RANDOM (BEAKER) 121 mg/dL 70-110 (test bhhb=283) CALCIUM (BEAKER) (test 8.1 mg/dL 8.5-10.5 ebta=495) AST (SGOT) (BEAKER) (test 18 U/L 5-40 qagb=637) ALT (SGPT) (BEAKER) (test 12 U/L 5-50 rtec=627) EGFR (BEAKER) (test 15 mL/min/1.73 sq m ESTIMATED GFR IS NOT peta=8800) ACCURATE CREATININE CLEARANCE IN PREDICTING GLOMERULAR FILTRATION RATE. ESTIMATED GFR IS NOT APPLICABLE FOR DIALYSIS PATIENTS. CREATININE, RANDOM [id number] 14:44:00 Test Item Value Reference Range Comments CREATININE URINE (BEAKER) (test quzc=527) 75.3 mg/dL Reference Range: No NormalsSODIUM, RANDOM [id number] 14:26:00 Test Item Value Reference Range Comments SODIUM URINE (BEAKER) (test pvys=463) 37 meq/L Reference Range: No NormalsCBC W/PLT COUNT & AUTO [id number] 06: 52:00 Test Item Value Reference Range Comments WHITE BLOOD CELL COUNT (BEAKER) (test rrts=652) 29.9 K/ L 4.0-10.0 RED BLOOD CELL COUNT (BEAKER) (test lprq=664) 3.47 M/ L 4.20-5.80 HEMOGLOBIN (BEAKER) (test uedr=318) 10.3 GM/DL 13.0-16.8 HEMATOCRIT (BEAKER) (test axnh=563) 31.6 % 40.0-50.0 MEAN CORPUSCULAR VOLUME (BEAKER) (test fmpd=678) 91.1 fL 82.0-98.0 MEAN CORPUSCULAR HEMOGLOBIN (BEAKER) (test 29.6 pg 27.0-33.0 wseq=612) MEAN CORPUSCULAR HEMOGLOBIN CONC (BEAKER) (test 32.5 GM/DL 32.0-36.0 oigx=152) RED CELL DISTRIBUTION WIDTH (BEAKER) (test 16.8 % 10.3-14.2 ejqd=476) PLATELET COUNT (BEAKER) (test cdrg=769) 167 K/CU MM 150-430 MEAN PLATELET VOLUME (BEAKER) (test cgsm=455) 12.5 fL 6.5-10.5 NUCLEATED RED BLOOD CELLS (BEAKER) (test 0 /100 WBC 0-0 ioxp=783) (MANUAL DIFFERENTIAL)2017-03-02 06:52:00 Test Item Value Reference Range Comments TOTAL COUNTED (BEAKER) (test fykz=9172) WBC MORPHOLOGY (BEAKER) (test lheu=661) Normal GIANT PLATELETS (BEAKER) (test ujze=917) Present ANISOCYTOSIS (BEAKER) (test lvnp=839) 1+ few HYPOCHROMIA (BEAKER) (test frpu=253) 2+ moderate COMPREHENSIVE METABOLIC [id number] 06:19:00 Test Item Value Reference Range Comments TOTAL PROTEIN (BEAKER) 6.0 gm/dL 6.0-8.5 (test blwu=005) ALBUMIN (BEAKER) (test 1.8 g/dL 3.5-5.0 kqmu=1251) ALKALINE PHOSPHATASE 210 U/L 30-115 (BEAKER) (test xuey=660) BILIRUBIN TOTAL (BEAKER) 0.5 mg/dL 0.1-1.2 (test mguz=856) SODIUM (BEAKER) (test 137 meq/L 135-148 bogv=106) POTASSIUM (BEAKER) (test 4.5 meq/L 3.6-5.5 okqq=496) CHLORIDE (BEAKER) (test 104 meq/L 98-106 mwbu=294) CO2 (BEAKER) (test 20 meq/L 20-29 rpjb=613) BLOOD UREA NITROGEN 58 mg/dL 10-26 (BEAKER) (test xtvm=131) CREATININE (BEAKER) (test 4.00 mg/dL 0.50-1.20 hyev=653) GLUCOSE RANDOM (BEAKER) 112 mg/dL 70-110 (test srty=819) CALCIUM (BEAKER) (test 8.0 mg/dL 8.5-10.5 xdmi=447) AST (SGOT) (BEAKER) (test 18 U/L 5-40 bddo=606) ALT (SGPT) (BEAKER) (test 12 U/L 5-50 qwxk=769) EGFR (BEAKER) (test 15 mL/min/1.73 sq m ESTIMATED GFR IS NOT heli=5109) ACCURATE CREATININE CLEARANCE IN PREDICTING GLOMERULAR FILTRATION RATE. ESTIMATED GFR IS NOT APPLICABLE FOR DIALYSIS PATIENTS. RAD, CHEST, 1 VIEW, NON [id number] 16:15:00Reason for exam:->pnaShould this be performed at the bedside?->YesFINAL REPORT TECHNIQUE: Single view of the chest. COMPARISON: 02/27/2017 11:56 AM FINDINGS: Small left pleural effusion with adjacent airspace disease is stable. Mild prominenceof the vascular markings again noted. Otherwise lungs are clear. Cardiac silhouette is prominent. Right-sided nontunneled dialysis catheter with tip at the cavoatrial junction is noted. IMPRESSION: 1. No significant interval change. Signed: Arash Henderson MDReport Verified Date/Time: 03/01/2017 16:15: 57Reading Location: [address] Transitional Reading Room EOSINOPHIL SMEAR, [id number] 16:02:00 Test Item Value Reference Range Comments EOSINOPHIL SMEAR, URINE (BEAKER) (test No EOS seen No EOS seen xeon=3802) CBC W/PLT COUNT & AUTO [id number] 01:19:00 Test Item Value Reference Range Comments WHITE BLOOD CELL COUNT (BEAKER) (test jxmp=369) 30.5 K/ L 4.0-10.0 RED BLOOD CELL COUNT (BEAKER) (test eioa=318) 3.66 M/ L 4.20-5.80 HEMOGLOBIN (BEAKER) (test uugt=866) 10.9 GM/DL 13.0-16.8 HEMATOCRIT (BEAKER) (test uhiq=073) 32.8 % 40.0-50.0 MEAN CORPUSCULAR VOLUME (BEAKER) (test jggq=456) 89.7 fL 82.0-98.0 MEAN CORPUSCULAR HEMOGLOBIN (BEAKER) (test 29.9 pg 27.0-33.0 qdgg=590) MEAN CORPUSCULAR HEMOGLOBIN CONC (BEAKER) (test 33.3 GM/DL 32.0-36.0 ltgt=168) RED CELL DISTRIBUTION WIDTH (BEAKER) (test 16.4 % 10.3-14.2 upwj=316) PLATELET COUNT (BEAKER) (test lzpl=818) 149 K/CU MM 150-430 MEAN PLATELET VOLUME (BEAKER) (test wcjy=214) 13.3 fL 6.5-10.5 NEUTROPHILS RELATIVE PERCENT (BEAKER) (test 81 % gwzt=733) LYMPHOCYTES RELATIVE PERCENT (BEAKER) (test 7 % cepr=320) MONOCYTES RELATIVE PERCENT (BEAKER) (test 12 % ukpy=514) EOSINOPHILS RELATIVE PERCENT (BEAKER) (test 0 % fqom=937) BASOPHILS RELATIVE PERCENT (BEAKER) (test 0 % mdfi=319) NEUTROPHILS ABSOLUTE COUNT (BEAKER) (test 24.70 K/ L 1.80-8.00 ecem=990) LYMPHOCYTES ABSOLUTE COUNT (BEAKER) (test 2.10 K/ L 1.48-4.50 fyqb=896) MONOCYTES ABSOLUTE COUNT (BEAKER) (test 3.50 K/ L 0.00-1.30 nwho=438) EOSINOPHILS ABSOLUTE COUNT (BEAKER) (test 0.10 K/ L 0.00-0.50 ghgx=553) BASOPHILS ABSOLUTE COUNT (BEAKER) (test 0.10 K/ L 0.00-0.20 isia=611) (MANUAL DIFFERENTIAL)2017-03-01 01:19:00 Test Item Value Reference Range Comments NEUTROPHILS - REL (DIFF) (BEAKER) (test 88 % prvd=3711) LYMPHOCYTES - REL (DIFF) (BEAKER) (test 7 % ydbz=1031) MONOCYTES - REL (DIFF) (BEAKER) (test imvq=8150) 4 % METAMYELOCYTES-REL (DIFF) (BEAKER) (test 1 % 0-0 xsga=497) NEUTROPHILS - ABS (DIFF) (BEAKER) (test 26.84 K/ L 1.80-8.00 hzhw=5410) LYMPHOCYTES - ABS (DIFF) (BEAKER) (test 2.14 K/ L 1.48-4.50 rnjw=9344) MONOCYTES - ABS (DIFF) (BEAKER) (test trns=8745) 1.22 K/ L 0.00-1.30 METAMYELOCTYES - ABS (DIFF) (BEAKER) (test 0.31 K/ L 0.00-0.00 jyek=164) TOTAL COUNTED (BEAKER) (test iawr=4023) 100 WBC MORPHOLOGY (BEAKER) (test fuyh=457) Normal GIANT PLATELETS (BEAKER) (test qkne=997) Present ANISOCYTOSIS (BEAKER) (test uqgj=236) 1+ few COMPREHENSIVE METABOLIC [id number] 01:12:00 Test Item Value Reference Range Comments TOTAL PROTEIN (BEAKER) 6.4 gm/dL 6.0-8.5 Specimen slightly (test cisx=270) hemolyzed ALBUMIN (BEAKER) (test 1.8 g/dL 3.5-5.0 Specimen slightly mbrt=7336) hemolyzed ALKALINE PHOSPHATASE 210 U/L 30-115 (BEAKER) (test rpbl=264) BILIRUBIN TOTAL (BEAKER) 0.7 mg/dL 0.1-1.2 Specimen slightly (test wwps=637) hemolyzed SODIUM (BEAKER) (test 131 meq/L 135-148 fusr=620) POTASSIUM (BEAKER) (test 4.4 meq/L 3.6-5.5 Specimen slightly awgn=805) hemolyzed CHLORIDE (BEAKER) (test 99 meq/L 98-106 lkol=370) CO2 (BEAKER) (test 23 meq/L 20-29 sovk=905) BLOOD UREA NITROGEN 46 mg/dL 10-26 (BEAKER) (test bbfl=594) CREATININE (BEAKER) (test 3.50 mg/dL 0.50-1.20 Specimen slightly mhpa=681) hemolyzed GLUCOSE RANDOM (BEAKER) 93 mg/dL 70-110 (test otbl=120) CALCIUM (BEAKER) (test 8.0 mg/dL 8.5-10.5 tovt=612) AST (SGOT) (BEAKER) (test 20 U/L 5-40 Specimen slightly ospz=338) hemolyzed ALT (SGPT) (BEAKER) (test 12 U/L 5-50 Specimen slightly qkik=278) hemolyzed EGFR (BEAKER) (test 18 mL/min/1.73 sq m ESTIMATED GFR IS NOT qnns=0590) ACCURATE CREATININE CLEARANCE IN PREDICTING GLOMERULAR FILTRATION RATE. ESTIMATED GFR IS NOT APPLICABLE FOR DIALYSIS PATIENTS. [id number] 01:08:00 Test Item Value Reference Range Comments PHOSPHORUS (BEAKER) (test 4.8 mg/dL 2.5-4.5 Specimen slightly hemolyzed lnke=529) [id number] 01:03:00 Test Item Value Reference Range Comments MAGNESIUM (BEAKER) (test 1.7 mg/dL 1.5-3.0 Specimen slightly hemolyzed emlt=302) [id number] 16:58:00 Test Item Value Reference Range Comments AMMONIA (BEAKER) (test azhm=505) 23 mol/L 17-80 CBC W/PLT COUNT & AUTO [id number] 12:29:00 Test Item Value Reference Range Comments WHITE BLOOD CELL COUNT (BEAKER) (test bprd=193) 26.4 K/ L 4.0-10.0 RED BLOOD CELL COUNT (BEAKER) (test gkju=314) 3.60 M/ L 4.20-5.80 HEMOGLOBIN (BEAKER) (test rcby=187) 10.6 GM/DL 13.0-16.8 HEMATOCRIT (BEAKER) (test uowe=562) 32.4 % 40.0-50.0 MEAN CORPUSCULAR VOLUME (BEAKER) (test srsp=333) 90.0 fL 82.0-98.0 MEAN CORPUSCULAR HEMOGLOBIN (BEAKER) (test 29.6 pg 27.0-33.0 yavs=138) MEAN CORPUSCULAR HEMOGLOBIN CONC (BEAKER) (test 32.8 GM/DL 32.0-36.0 kbxg=774) RED CELL DISTRIBUTION WIDTH (BEAKER) (test 17.3 % 10.3-14.2 zjbe=762) PLATELET COUNT (BEAKER) (test huuv=509) 132 K/CU MM 150-430 MEAN PLATELET VOLUME (BEAKER) (test twwp=054) 12.6 fL 6.5-10.5 NUCLEATED RED BLOOD CELLS (BEAKER) (test 0 /100 WBC 0-0 whjp=109) (MANUAL DIFFERENTIAL)2017-02-28 12:29:00 Test Item Value Reference Range Comments NEUTROPHILS - REL (DIFF) (BEAKER) (test 79 % zmuc=3641) LYMPHOCYTES - REL (DIFF) (BEAKER) (test 9 % nqux=6523) MONOCYTES - REL (DIFF) (BEAKER) (test dqvj=4379) 8 % MYELOCYTES-REL (DIFF) (BEAKER) (test lbmw=1552) 4 % 0-0 NEUTROPHILS - ABS (DIFF) (BEAKER) (test 20.86 K/ L 1.80-8.00 xuwo=7765) LYMPHOCYTES - ABS (DIFF) (BEAKER) (test 2.38 K/ L 1.48-4.50 isxf=6444) MONOCYTES - ABS (DIFF) (BEAKER) (test rfma=4757) 2.11 K/ L 0.00-1.30 MYELOCYTES-ABS (DIFF) (BEAKER) (test gwai=3898) 1.06 K/ L 0.00-0.00 TOTAL COUNTED (BEAKER) (test dfrn=9380) 100 WBC MORPHOLOGY (BEAKER) (test qkac=690) Normal PLT MORPHOLOGY (BEAKER) (test qxoa=817) Normal ANISOCYTOSIS (BEAKER) (test ksps=296) 1+ few BASIC METABOLIC [id number] 10:43:00 Test Item Value Reference Range Comments SODIUM (BEAKER) (test 135 meq/L 135-148 jcte=301) POTASSIUM (BEAKER) (test 4.3 meq/L 3.6-5.5 swxm=120) CHLORIDE (BEAKER) (test 102 meq/L 98-106 yhsf=042) CO2 (BEAKER) (test 24 meq/L 20-29 eflm=450) BLOOD UREA NITROGEN 40 mg/dL 10-26 (BEAKER) (test ofey=411) CREATININE (BEAKER) (test 3.20 mg/dL 0.50-1.20 hrne=890) GLUCOSE RANDOM (BEAKER) 117 mg/dL 70-110 (test wrxj=197) CALCIUM (BEAKER) (test 8.0 mg/dL 8.5-10.5 gmrt=491) EGFR (BEAKER) (test 20 mL/min/1.73 sq m ESTIMATED GFR IS NOT zagx=0471) ACCURATE CREATININE CLEARANCE IN PREDICTING GLOMERULAR FILTRATION RATE. ESTIMATED GFR IS NOT APPLICABLE FOR DIALYSIS PATIENTS. COMPREHENSIVE METABOLIC [id number] 10:43:00 Test Item Value Reference Range Comments TOTAL PROTEIN (BEAKER) 5.9 gm/dL 6.0-8.5 (test cldh=125) ALBUMIN (BEAKER) (test 1.7 g/dL 3.5-5.0 rpbp=3140) ALKALINE PHOSPHATASE 219 U/L 30-115 (BEAKER) (test llmp=775) BILIRUBIN TOTAL (BEAKER) 0.8 mg/dL 0.1-1.2 (test iexy=119) SODIUM (BEAKER) (test 135 meq/L 135-148 asjb=077) POTASSIUM (BEAKER) (test 4.3 meq/L 3.6-5.5 jdaq=233) CHLORIDE (BEAKER) (test 102 meq/L 98-106 blxc=998) CO2 (BEAKER) (test 24 meq/L 20-29 xvoa=510) BLOOD UREA NITROGEN 40 mg/dL 10-26 (BEAKER) (test tqvr=573) CREATININE (BEAKER) (test 3.20 mg/dL 0.50-1.20 fhfi=171) GLUCOSE RANDOM (BEAKER) 117 mg/dL 70-110 (test guyy=522) CALCIUM (BEAKER) (test 8.0 mg/dL 8.5-10.5 dbtd=551) AST (SGOT) (BEAKER) (test 18 U/L 5-40 efke=848) ALT (SGPT) (BEAKER) (test 14 U/L 5-50 jspl=543) EGFR (BEAKER) (test 20 mL/min/1.73 sq m ESTIMATED GFR IS NOT zevh=3052) ACCURATE CREATININE CLEARANCE IN PREDICTING GLOMERULAR FILTRATION RATE. ESTIMATED GFR IS NOT APPLICABLE FOR DIALYSIS PATIENTS. [id number] 10:40:00 Test Item Value Reference Range Comments PHOSPHORUS (BEAKER) (test wsji=783) 4.2 mg/dL 2.5-4.5 [id number] 10:34:00 Test Item Value Reference Range Comments MAGNESIUM (BEAKER) (test bemg=802) 1.6 mg/dL 1.5-3.0 OCCULT BLOOD, [id number] 15:29:00 Test Item Value Reference Range Comments FECAL OCCULT BLOOD (BEAKER) (test lyed=301) Positive Negative BASIC METABOLIC [id number] 05:35:00 Test Item Value Reference Range Comments SODIUM (BEAKER) (test 135 meq/L 135-148 jkjz=851) POTASSIUM (BEAKER) (test 4.1 meq/L 3.6-5.5 crub=899) CHLORIDE (BEAKER) (test 101 meq/L 98-106 wtiy=636) CO2 (BEAKER) (test 26 meq/L 20-29 tevh=049) BLOOD UREA NITROGEN 28 mg/dL 10-26 (BEAKER) (test cuiu=066) CREATININE (BEAKER) (test 2.40 mg/dL 0.50-1.20 drjp=954) GLUCOSE RANDOM (BEAKER) 108 mg/dL 70-110 (test fsmm=169) CALCIUM (BEAKER) (test 7.9 mg/dL 8.5-10.5 duid=225) EGFR (BEAKER) (test 28 mL/min/1.73 sq m ESTIMATED GFR IS NOT qwqc=8625) ACCURATE CREATININE CLEARANCE IN PREDICTING GLOMERULAR FILTRATION RATE. ESTIMATED GFR IS NOT APPLICABLE FOR DIALYSIS PATIENTS. [id number] 05:30:00 Test Item Value Reference Range Comments PHOSPHORUS (BEAKER) (test psvo=980) 3.6 mg/dL 2.5-4.5 [id number] 05:26:00 Test Item Value Reference Range Comments MAGNESIUM (BEAKER) (test jrfv=294) 1.9 mg/dL 1.5-3.0 CBC (HEMOGRAM ONLY)2017-02-27 05:06:00 Test Item Value Reference Range Comments WHITE BLOOD CELL COUNT (BEAKER) 27.2 K/ L 4.0-10.0 (test aerd=356) RED BLOOD CELL COUNT (BEAKER) 2.45 M/ L 4.20-5.80 (test boap=719) HEMOGLOBIN (BEAKER) (test 7.4 GM/DL 13.0-16.8 hoeh=633) HEMATOCRIT (BEAKER) (test 23.1 % 40.0-50.0 jump=729) MEAN CORPUSCULAR VOLUME (BEAKER) 94.2 fL 82.0-98.0 (test ucrg=951) MEAN CORPUSCULAR HEMOGLOBIN 30.4 pg 27.0-33.0 (BEAKER) (test agyl=143) MEAN CORPUSCULAR HEMOGLOBIN CONC 32.2 GM/DL 32.0-36.0 (BEAKER) (test cnqx=996) RED CELL DISTRIBUTION WIDTH 14.5 % 10.3-14.2 (BEAKER) (test vlab=487) PLATELET COUNT (BEAKER) (test 108 K/CU MM 150-430 histroy of low platlets gluc=281) MEAN PLATELET VOLUME (BEAKER) 13.7 fL 6.5-10.5 (test qczw=172) NUCLEATED RED BLOOD CELLS 0 /100 WBC 0-0 (BEAKER) (test thpl=572) ARTERIAL DOPPLER ARM, [id number] 13:32:00Reason for exam:->severe pain, edemaFINAL REPORT Technique: Grayscale, color Doppler, spectral wave form analysisof the left upper extremity arterial system was performed. Discussion: Exam is technically limited due to patient's condition and inability to cooperate. Arthrosclerotic plaques are seen throughout. The visualized portion of the left subclavian artery, axillary artery, brachial artery, radial and ulnar arteries are otherwise patent without definite focal hemodynamically significant stenosis. Biphasicto triphasic waveforms seen throughout. IMPRESSION: Arthrosclerotic vascular calcifications but no focal hemodynamically significant stenosis in the left upper extremity arteries. Signed: Arash [place] Verified Date/Time: 02/26/2017 13:32:47 Reading Location: [facility] Radiology Reading Room RAD, CHEST, 1 VIEW, NON [id number] 13:29: 00Reason for exam:->pnaShould this be performed at the bedside?->YesFINAL REPORT Comparison: 02/25/2017 TECHNIQUE: Single view of the chest FINDINGS: Small left pleural effusion with adjacent airspace disease identified. There may be mild vascular congestion elsewhere in the lungs. Cardiac silhouette is enlarged. Previous nasogastric tube has been removed. Right internal jugular nontunneled dialysis catheter is stable. Signed: Arash Henderson [place] Verified Date/Time: 02/26/2017 13:29:47 Reading Location: [facility] Radiology Reading Room Electronically signed by: ARASH HENDERSON M.D. on 01:29 PMCSF CULTURE + GRAM [id number] 10:58:00 Test Item Value Reference Range Comments CULTURE (BEAKER) (test KLEBSIELLA PNEUMONIAE <1+ Klebsiella wiql=9674) SSP PNEUMONIAE pneumoniae ssp pneumoniae Amikacin (test code=1) Ampicillin + Sulbactam (test code=6) Aztreonam (test code=32) Cefazolin (test code=9) Cefepime (test code=51) Cefoxitin (test code=68) Ceftazidime (test code=27) Ceftriaxone (test code=52) Ertapenem (test code=38) Gentamicin (test code=18) Levofloxacin (test code=22) Meropenem (test code=34) Nitrofurantoin (test code=23) Piperacillin + Tazobactam (test code=29) Tetracycline (test code=2) Tigecycline (test fpnt=627) Tobramycin (test code=25) Trimethoprim + Sulfamethoxazole (test code=47) CULTURE (BEAKER) (test ESCHERICHIA COLI <1+ Escherichia coli htvk=7697) Amikacin (test code=1) Ampicillin + Sulbactam (test code=6) Aztreonam (test code=32) Cefazolin (test code=9) Cefepime (test code=51) Cefoxitin (test code=68) Ceftazidime (test code=27) Ceftriaxone (test code=52) Ertapenem (test code=38) Gentamicin (test code=18) Levofloxacin (test code=22) Meropenem (test code=34) Nitrofurantoin (test code=23) Piperacillin + Tazobactam (test code=29) Tetracycline (test code=2) Tigecycline (test dzwy=053) Tobramycin (test code=25) Trimethoprim + Sulfamethoxazole (test code=47) GRAM STAIN RESULT (BEAKER) 2+ White blood cells (test uvrc=5768) seen GRAM STAIN RESULT (BEAKER) <1+ gram negative Previously gram (test grut=964060) rods positive cocci was also reported. Upon review it is found to be artifactual staining and not gram positive cocci. STOOL CULTURE + SHIGA [id number] 08:45:00 Test Item Value Reference Range Comments CULTURE (BEAKER) (test No Salmonella, Shigella or yssm=7771) Campylobacter isolated STOOL PATH [id number] 08:45:00 Test Item Value Reference Range Comments PATHOGEN EXAM CHARGED (BEAKER) (test fdoj=8772) Done BASIC METABOLIC [id number] 05:26:00 Test Item Value Reference Range Comments SODIUM (BEAKER) (test 132 meq/L 135-148 dojj=295) POTASSIUM (BEAKER) (test 3.8 meq/L 3.6-5.5 zwhw=366) CHLORIDE (BEAKER) (test 100 meq/L 98-106 qmnw=788) CO2 (BEAKER) (test 23 meq/L 20-29 kqly=265) BLOOD UREA NITROGEN 37 mg/dL 10-26 (BEAKER) (test wpvb=502) CREATININE (BEAKER) (test 2.90 mg/dL 0.50-1.20 fssw=430) GLUCOSE RANDOM (BEAKER) 112 mg/dL 70-110 (test drps=317) CALCIUM (BEAKER) (test 7.6 mg/dL 8.5-10.5 qawv=897) EGFR (BEAKER) (test 22 mL/min/1.73 sq m ESTIMATED GFR IS NOT yqqm=8457) ACCURATE CREATININE CLEARANCE IN PREDICTING GLOMERULAR FILTRATION RATE. ESTIMATED GFR IS NOT APPLICABLE FOR DIALYSIS PATIENTS. CBC (HEMOGRAM ONLY)2017-02-26 05:23:00 Test Item Value Reference Range Comments WHITE BLOOD CELL COUNT (BEAKER) 29.0 K/ L 4.0-10.0 (test jrqx=973) RED BLOOD CELL COUNT (BEAKER) 2.61 M/ L 4.20-5.80 (test wtcb=046) HEMOGLOBIN (BEAKER) (test 8.0 GM/DL 13.0-16.8 novc=883) HEMATOCRIT (BEAKER) (test 24.5 % 40.0-50.0 gaes=952) MEAN CORPUSCULAR VOLUME 94.1 fL 82.0-98.0 (BEAKER) (test ywuk=357) MEAN CORPUSCULAR HEMOGLOBIN 30.7 pg 27.0-33.0 (BEAKER) (test babs=217) MEAN CORPUSCULAR HEMOGLOBIN 32.6 GM/DL 32.0-36.0 CONC (BEAKER) (test qzlf=388) RED CELL DISTRIBUTION WIDTH 13.4 % 10.3-14.2 (BEAKER) (test nziv=027) PLATELET COUNT (BEAKER) (test 84 K/CU MM 150-430 No clot detected; history jzgd=577) of low PLT MEAN PLATELET VOLUME (BEAKER) 11.1 fL 6.5-10.5 (test fxdc=501) [id number] 05:22:00 Test Item Value Reference Range Comments PHOSPHORUS (BEAKER) (test oxrs=964) 3.2 mg/dL 2.5-4.5 [id number] 05:18:00 Test Item Value Reference Range Comments MAGNESIUM (BEAKER) (test endq=429) 1.6 mg/dL 1.5-3.0 BLOOD [id number] 04:00:00 Test Item Value Reference Range Comments CULTURE (BEAKER) (test lcvr=2671) No growth in 5 days BLOOD [id number] 04:00:00 Test Item Value Reference Range Comments CULTURE (BEAKER) (test todw=1940) No growth in 5 days CLOSTRIDIUM DIFFICILE TOXIN [id number] 15:43:00 Test Item Value Reference Range Comments CLOSTRIDIUM DIFFICILE TOXIN, PCR (BEAKER) (test Not Detected Not Detected lavp=5767) This qualitative real-time polymerase chain reaction assay detects the tcdB gene , encoded on the C.difficile pathogenicity locus (PaLoc). The product of tcdB, toxin B, is a cytotoxin essential for causing C.difficile-associated disease ( CDAD) and is found in virtually all toxigenic C.difficile.This assay is performed for patients suspected of having either community-acquired or nosocomial CDAD. Accordingly, only symptomatic patients should be tested and formed stools will be rejected unless ileus is present (i.e., specified when ordering). Patients may be colonized with toxigenic C.difficile strains not causing active disease; therefore, clinical correlation is needed when deciding how to manage patients with a positive test result.The assay has not been validated as a test of cure as amplifiable nucleic acid may persist after effective treatment; therefore, follow-up testing of a positive result is not recommended.CT, SPINE, LUMBAR, WO [id number] 13:58:00FINAL REPORT CT lumbar spine INDICATION: Lumbago COMPARISON: [...] appears mildly narrowed, patent neural foramen. At L2 -L3, there is a moderate diffuse disc bulge and mild facet arthropathy. There is qcpm-wt-oqaieups narrowing of the central canal and tjnz-yn-nludjbfq right, moderate left foraminal stenosis. At L3-L4, there is loss of disc height, associated with a large disc bulge. Xczi-hr-iqnixxyu facet arthropathy. Central canal is severely narrowed, and there is also moderate to severe bilateral foraminal stenosis. At L4-L5, there is a large disc bulge and snbb-yf-daogcatf facet arthropathy. Central canal appears moderately narrowed, and there is severe bilateral foraminal narrowing. At L5-S1, there is a large disc bulge and mildfacet arthropathy. Central canal is mild to moderately narrowed, and there is severe bilateral foraminal stenosis. The aorta appears ectatic, measuring up to 2.5 cm, and is heavily calcified. The rightkidney appears atrophic, containing a 1.5 cm hypodensity [...] containing a hemorrhagic/tenacious cyst. Signed: Pk Jefferson Verified Date/Time: 02/25/2017 13:58:19 Reading Location: [facility] B1 C013W Consult Reading Room SHIGA TOXIN [id number] 11:01:00 Test Item Value Reference Range Comments SHIGA TOXIN 1 (BEAKER) (test etex=0463) Not detected Not detected SHIGA TOXIN 2 (BEAKER) (test ixrb=7793) Not detected Not detected URINE [id number] 09:59:00 Test Item Value Reference Range Comments CULTURE (BEAKER) (test fkfm=8675) No growth CT, BRAIN, WITHOUT [id number] 09:44:00FINAL REPORT CT Head without contrast CLINICAL HISTORY: encephalopathy Episode of Care: Initial TECHNIQUE: Contiguous axial images through the head without contrast. This exam was performed according to the departmental dose optimization program which includes automated exposurecontrol, adjustment of the mA and/or kV according to the patient size, and/or use of an iterative reconstruction technique. COMPARISON: None FINDINGS: There is no CT evidence of acute infarct or intracranial hemorrhage. There is a punctate chronic right cerebellar infarct. There are atherosclerotic calcifications of the intracranial circulation. There is mild generalized sulcal prominence without hydrocephalus, midline shift, or apparent mass effect. There are no extra-axial fluid collections. The skull is intact. There are small air-fluid levels in the left maxillary and left sphenoid sinuses.. IMPRESSION: No CT evidence of acute infarct, hemorrhage, or hydrocephalus. Punctate chronic right cerebellar infarct. Acute left maxillary and sphenoid sinusitis. Signed: Lorna Rasmussen MDReport Verified Date/Time: 02/25/2017 09:44:22 Reading Location: [facility] B1 C013V Neuro Reading Room Electronicallysigned by: LORNA RASMUSSEN M.D. on 02/25/2017 09:44 AMBASIC METABOLIC [id number] 06:32:00 Test Item Value Reference Range Comments SODIUM (BEAKER) (test 141 meq/L 135-148 skqv=756) POTASSIUM (BEAKER) (test 3.4 meq/L 3.6-5.5 wjns=454) CHLORIDE (BEAKER) (test 106 meq/L 98-106 mgva=057) CO2 (BEAKER) (test 26 meq/L 20-29 yxve=015) BLOOD UREA NITROGEN 29 mg/dL 10-26 (BEAKER) (test csgu=777) CREATININE (BEAKER) (test 2.30 mg/dL 0.50-1.20 yjqm=347) GLUCOSE RANDOM (BEAKER) 152 mg/dL 70-110 (test qzto=022) CALCIUM (BEAKER) (test 7.9 mg/dL 8.5-10.5 deah=477) EGFR (BEAKER) (test 29 mL/min/1.73 sq m ESTIMATED GFR IS NOT mhrx=9090) ACCURATE CREATININE CLEARANCE IN PREDICTING GLOMERULAR FILTRATION RATE. ESTIMATED GFR IS NOT APPLICABLE FOR DIALYSIS PATIENTS. [id number] 06:30:00 Test Item Value Reference Range Comments PHOSPHORUS (BEAKER) (test zjrl=176) 3.1 mg/dL 2.5-4.5 [id number] 06:25:00 Test Item Value Reference Range Comments MAGNESIUM (BEAKER) (test xkpt=976) 1.4 mg/dL 1.5-3.0 CBC (HEMOGRAM ONLY)2017-02-25 06:22:00 Test Item Value Reference Range Comments WHITE BLOOD CELL COUNT (BEAKER) (test xuan=618) 30.4 K/ L 4.0-10.0 RED BLOOD CELL COUNT (BEAKER) (test zogg=004) 2.51 M/ L 4.20-5.80 HEMOGLOBIN (BEAKER) (test cclo=452) 7.8 GM/DL 13.0-16.8 HEMATOCRIT (BEAKER) (test iasx=225) 23.6 % 40.0-50.0 MEAN CORPUSCULAR VOLUME (BEAKER) (test nosi=967) 93.8 fL 82.0-98.0 MEAN CORPUSCULAR HEMOGLOBIN (BEAKER) (test 30.9 pg 27.0-33.0 qxhe=905) MEAN CORPUSCULAR HEMOGLOBIN CONC (BEAKER) (test 32.9 GM/DL 32.0-36.0 qrgr=332) RED CELL DISTRIBUTION WIDTH (BEAKER) (test 13.8 % 10.3-14.2 nhfq=096) PLATELET COUNT (BEAKER) (test pocg=581) 107 K/CU MM 150-430 MEAN PLATELET VOLUME (BEAKER) (test lskw=432) 14.5 fL 6.5-10.5 RAD, CHEST, 1 VIEW, NON [id number] 05:48:00Reason for exam:-> SepsisShould this be performed at the bedside?->YesFINAL REPORT RAD, CHEST, 1 VIEW, NON DEPT INDICATION: Sepsis COMPARISON: February 21, 2017 FINDINGS: Portable frontal view of the chest. IMPRESSION: Support Lines: New right IJmultilumen central venous catheter terminates above the cavoatrial junction. An enteric tube is present. The side-port projects over the expected location of the gastric lumen. Lungs and pleura: Scattered subsegmental atelectasis. Developing consolidation in the right base. Trace left effusion. No pneumothorax.Heart and mediastinum: Stable contours.Additional findings: None. Signed: JR Paul Robert MDReport Verified Date/Time: 02/25/2017 05:48:39 Reading Location: [address] TransitionalReading Room POCT-GLUCOSE [id number] 23:37:00 Test Item Value Reference Range Comments POC-GLUCOSE METER (BEAKER) 150 mg/dL 70-110 TESTED AT [address] (test kfbd=5121) [facility] [address] POCT-GLUCOSE [id number] 18:32:00 Test Item Value Reference Range Comments POC-GLUCOSE METER (BEAKER) 131 mg/dL 70-110 TESTED AT [address] (test pgod=7681) [facility] [address] VANCOMYCIN LEVEL, [id number] 14:33:00 Test Item Value Reference Range Comments VANCOMYCIN RANDOM (BEAKER) (test srnx=653) 18.0 ug/mL Reference Range: No NormalsPOCT-GLUCOSE [id number] 12:26:00 Test Item Value Reference Range Comments POC-GLUCOSE METER (BEAKER) 143 mg/dL 70-110 TESTED AT [address] (test zbpa=1564) [facility] [address] CSF CELL COUNT [id number] 08:17:00 Test Item Value Reference Range Comments APPEARANCE CSF (BEAKER) Turbid Clear (test cgjc=068) COLOR CSF (BEAKER) (test Other Colorless Light Brown sqzt=904) RBC CSF (BEAKER) (test 792518 /cu mm 0-5 zliu=243) WBC CSF (BEAKER) (test 688188 /cu mm <=5 svmo=8962) RBCS FRESH (BEAKER) (test 100% Fresh sjwy=4267) NUMBER OF CELLS DIFF'D 100 (BEAKER) (test dzsf=1310) NEUTROPHIL, CSF (BEAKER) 92 % 0-5 (test xqfm=307) LYMPHS CSF (BEAKER) (test 4 % 40-80 oekl=683) MONO/MACROPHAGE CSF (BEAKER) 4 % 15-45 (test hjtk=035) EOSINOPHILS CSF (BEAKER) 0 % <=0 (test mqgz=243) BASO CSF (BEAKER) (test 0 % <=0 ekrj=484) INTERPRETATION-212 (BEAKER) Predominantly acute (test lbmc=0877) inflammation. Agree with differential count [id number] Amy Orozco M.D. (BEAKER) (test qtmr=3662) (electronic signature) TUBE NUMBER CSF (BEAKER) 2 (test aeok=3891) CBC W/PLT COUNT & AUTO [id number] 06:01:00 Test Item Value Reference Range Comments WHITE BLOOD CELL COUNT (BEAKER) (test ijrh=228) 38.8 K/ L 4.0-10.0 RED BLOOD CELL COUNT (BEAKER) (test bpsi=701) 2.71 M/ L 4.20-5.80 HEMOGLOBIN (BEAKER) (test rdrb=182) 8.4 GM/DL 13.0-16.8 HEMATOCRIT (BEAKER) (test gsmx=347) 25.7 % 40.0-50.0 MEAN CORPUSCULAR VOLUME (BEAKER) (test jrmw=651) 94.9 fL 82.0-98.0 MEAN CORPUSCULAR HEMOGLOBIN (BEAKER) (test 31.0 pg 27.0-33.0 msax=694) MEAN CORPUSCULAR HEMOGLOBIN CONC (BEAKER) (test 32.7 GM/DL 32.0-36.0 irjq=482) RED CELL DISTRIBUTION WIDTH (BEAKER) (test 14.1 % 10.3-14.2 ohxg=310) PLATELET COUNT (BEAKER) (test uruw=012) 103 K/CU MM 150-430 MEAN PLATELET VOLUME (BEAKER) (test atqf=208) 13.3 fL 6.5-10.5 NUCLEATED RED BLOOD CELLS (BEAKER) (test 0 /100 WBC 0-0 zpua=155) (MANUAL DIFFERENTIAL)2017-02-24 06:01:00 Test Item Value Reference Range Comments NEUTROPHILS - REL (DIFF) (BEAKER) (test 89 % kwfd=8333) LYMPHOCYTES - REL (DIFF) (BEAKER) (test 8 % ixjs=8986) MONOCYTES - REL (DIFF) (BEAKER) (test gtga=6548) 3 % NEUTROPHILS - ABS (DIFF) (BEAKER) (test 34.53 K/ L 1.80-8.00 tmrc=8151) LYMPHOCYTES - ABS (DIFF) (BEAKER) (test 3.10 K/ L 1.48-4.50 bhzv=0253) MONOCYTES - ABS (DIFF) (BEAKER) (test egbt=4447) 1.16 K/ L 0.00-1.30 TOTAL COUNTED (BEAKER) (test veqj=6659) 100 WBC MORPHOLOGY (BEAKER) (test yrlj=752) Normal PLT MORPHOLOGY (BEAKER) (test inzk=824) Normal RBC MORPHOLOGY (BEAKER) (test hyno=623) Normal COMPREHENSIVE METABOLIC [id number] 05:55:00 Test Item Value Reference Range Comments TOTAL PROTEIN (BEAKER) 6.0 gm/dL 6.0-8.5 (test svqc=222) ALBUMIN (BEAKER) (test 2.0 g/dL 3.5-5.0 ruug=3074) ALKALINE PHOSPHATASE 324 U/L 30-115 (BEAKER) (test yjhd=553) BILIRUBIN TOTAL (BEAKER) 0.8 mg/dL 0.1-1.2 (test ohbz=639) SODIUM (BEAKER) (test 142 meq/L 135-148 usru=883) POTASSIUM (BEAKER) (test 3.6 meq/L 3.6-5.5 tdgt=793) CHLORIDE (BEAKER) (test 107 meq/L 98-106 oqgz=317) CO2 (BEAKER) (test 21 meq/L 20-29 vwgr=282) BLOOD UREA NITROGEN 49 mg/dL 10-26 (BEAKER) (test zgut=007) CREATININE (BEAKER) (test 3.20 mg/dL 0.50-1.20 mzey=530) GLUCOSE RANDOM (BEAKER) 167 mg/dL 70-110 (test ujtc=208) CALCIUM (BEAKER) (test 8.1 mg/dL 8.5-10.5 jvwh=015) AST (SGOT) (BEAKER) (test 21 U/L 5-40 htco=168) ALT (SGPT) (BEAKER) (test 15 U/L 5-50 lxur=518) EGFR (BEAKER) (test 20 mL/min/1.73 sq m ESTIMATED GFR IS NOT kaio=2131) ACCURATE CREATININE CLEARANCE IN PREDICTING GLOMERULAR FILTRATION RATE. ESTIMATED GFR IS NOT APPLICABLE FOR DIALYSIS PATIENTS. [id number] 05:51:00 Test Item Value Reference Range Comments PHOSPHORUS (BEAKER) (test bduk=124) 4.1 mg/dL 2.5-4.5 [id number] 05:46:00 Test Item Value Reference Range Comments MAGNESIUM (BEAKER) (test rfmy=706) 1.7 mg/dL 1.5-3.0 POCT-GLUCOSE [id number] 00:20:00 Test Item Value Reference Range Comments POC-GLUCOSE METER (BEAKER) 166 mg/dL 70-110 TESTED AT [facility] [address] [place] [address] (test qgrf=1078) [facility] [address] POCT-GLUCOSE [id number] 18:55:00 Test Item Value Reference Range Comments POC-GLUCOSE METER (BEAKER) 146 mg/dL 70-110 TESTED AT [address] (test osov=0640) [facility] [address] HEPATITIS PANEL, [id number] 13:58:00 Test Item Value Reference Range Comments HEPATITIS A IGM ANTIBODY (BEAKER) (test Nonreactive Nonreactive xcwl=416) HEPATITIS B CORE IGM ANTIBODY (BEAKER) (test Nonreactive Nonreactive ceve=121) HEPATITIS C ANTIBODY (BEAKER) (test byyf=422) Nonreactive Nonreactive HEPATITIS B SURFACE ANTIGEN (2) (BEAKER) (test Nonreactive Nonreactive qfes=8143) ALPHA FETOPROTEIN (AFP), TUMOR [id number] 13:58:00 Test Item Value Reference Range Comments ALPHA-FETOPROTEIN (BEAKER) (test czws=9502) < ng/mL <10.0 FL, LUMBAR PUNCTURE, [id number] 13:32:00Reason for exam:->r/o meningitisFINAL REPORT Fluoroscopic-guided lumbar puncture. History: Altered mental status, elevated white count. Dairy Hand: Dr. Garcia. Medication: None. Anesthesia: 5 cc of 2% lidocaine without epinephrine. Contrast: None.Fluoro Time: 0.6 min. Total # of fluoro images: 3. Specimen: 10 cc of cloudy purulent CSF. Discussion:After informed consent was obtained, the patient's back was prepped and draped in a sterile fashion.The skin was anesthetized with 1% lidocaine without epinephrine. Using fluoroscopic guidance, a 22 gauge 3 inch long spinal needle was advanced into the spinal canal at the level of L2-L3 and then L1-L2. Cloudy purulent CSF was visualized and a total of 10 cc of was obtained and sent to the laboratoryfor studies. The patient tolerated the procedure well without evidence of immediate complication. IMPRESSION: Successful fluoroscopic guided lumbar puncture. Signed: Saravanan Garcia Verified Date/Time: 02/23/2017 13:32:09 Reading Location: [place] [address] Angio Body Reading Room POCT-GLUCOSE [id number] 12: 20:00 Test Item Value Reference Range Comments POC-GLUCOSE METER ([employer] [employer] [facility]) 127 mg/dL 70-110 TESTED AT [facility] [address] [place] [address] (test dcry=2257) [address] [facility] [address] VANCOMYCIN LEVEL, [id number] 09:45:00 Test Item Value Reference Range Comments VANCOMYCIN RANDOM (BEAKER) (test snzq=379) 23.0 ug/mL Reference Range: No NormalsPlease draw before dialysisURINE [id number] 08 :37:00 Test Item Value Reference Range Comments CULTURE (BEAKER) (test fkgs=5388) See comment 20-29,000 col/mL enteric organisms of >2 types. No further workup performed. Multiple organisms suggestive of colonization or contamination. Repeat collection recommended.HIV-1 ANTIGEN WITH HIV-1/2 [id number] 07:01:00 Test Item Value Reference Range Comments HIV-1 ANTIGEN WITH HIV 1\\T\\2 ANTIBODY (2) Nonreactive Nonreactive (BEAKER) (test xeuq=9789) CBC W/PLT COUNT & AUTO [id number] 06:57:00 Test Item Value Reference Range Comments WHITE BLOOD CELL COUNT (BEAKER) (test mnve=847) 39.4 K/ L 4.0-10.0 RED BLOOD CELL COUNT (BEAKER) (test hgdy=937) 2.61 M/ L 4.20-5.80 HEMOGLOBIN (BEAKER) (test rwiv=247) 8.1 GM/DL 13.0-16.8 HEMATOCRIT (BEAKER) (test wxrg=353) 24.4 % 40.0-50.0 MEAN CORPUSCULAR VOLUME (BEAKER) (test tjut=324) 93.8 fL 82.0-98.0 MEAN CORPUSCULAR HEMOGLOBIN (BEAKER) (test 31.1 pg 27.0-33.0 nvbx=280) MEAN CORPUSCULAR HEMOGLOBIN CONC (BEAKER) (test 33.2 GM/DL 32.0-36.0 yhfu=255) RED CELL DISTRIBUTION WIDTH (BEAKER) (test 13.9 % 10.3-14.2 mjpp=514) PLATELET COUNT (BEAKER) (test rdgh=789) 97 K/CU MM 150-430 MEAN PLATELET VOLUME (BEAKER) (test jjvv=662) 13.3 fL 6.5-10.5 NUCLEATED RED BLOOD CELLS (BEAKER) (test 0 /100 WBC 0-0 fhvf=652) NEUTROPHILS RELATIVE PERCENT (BEAKER) (test 87 % mjet=988) LYMPHOCYTES RELATIVE PERCENT (BEAKER) (test 6 % fkzf=329) MONOCYTES RELATIVE PERCENT (BEAKER) (test 7 % fpkt=532) EOSINOPHILS RELATIVE PERCENT (BEAKER) (test 0 % rljw=433) BASOPHILS RELATIVE PERCENT (BEAKER) (test 0 % vhrv=083) NEUTROPHILS ABSOLUTE COUNT (BEAKER) (test 34.40 K/ L 1.80-8.00 htja=024) LYMPHOCYTES ABSOLUTE COUNT (BEAKER) (test 2.20 K/ L 1.48-4.50 qqxi=525) MONOCYTES ABSOLUTE COUNT (BEAKER) (test rbwg=346) 2.80 K/ L 0.00-1.30 EOSINOPHILS ABSOLUTE COUNT (BEAKER) (test 0.00 K/ L 0.00-0.50 uile=760) BASOPHILS ABSOLUTE COUNT (BEAKER) (test cblh=590) 0.00 K/ L 0.00-0.20 (MANUAL DIFFERENTIAL)2017-02-23 06:57:00 Test Item Value Reference Range Comments NEUTROPHILS - REL (DIFF) (BEAKER) (test 84 % dxus=1097) LYMPHOCYTES - REL (DIFF) (BEAKER) (test 9 % wdqp=0798) MONOCYTES - REL (DIFF) (BEAKER) (test dytt=4643) 3 % BANDS - REL (DIFF) (BEAKER) (test edid=3880) 4 % 0-10 NEUTROPHILS - ABS (DIFF) (BEAKER) (test 33.10 K/ L 1.80-8.00 mwca=8971) LYMPHOCYTES - ABS (DIFF) (BEAKER) (test 3.55 K/ L 1.48-4.50 uosm=7011) MONOCYTES - ABS (DIFF) (BEAKER) (test nowa=9134) 1.18 K/ L 0.00-1.30 BANDS-ABS (DIFF) (BEAKER) (test mnzd=6232) 1.6 K/ L 0.0-0.8 TOTAL COUNTED (BEAKER) (test ssqx=8111) 100 BANDS + SEGMENTED NEUTROPHILS (BEAKER) (test 34.67 vakw=0608) WBC MORPHOLOGY (BEAKER) (test wvok=090) Normal PLT MORPHOLOGY (BEAKER) (test ncpx=449) Normal ANISOCYTOSIS (BEAKER) (test jagd=716) 1+ few HYPOCHROMIA (BEAKER) (test qqxf=101) 1+ few COMPREHENSIVE METABOLIC [id number] 06:45:00 Test Item Value Reference Range Comments TOTAL PROTEIN (BEAKER) 5.7 gm/dL 6.0-8.5 (test afkc=766) ALBUMIN (BEAKER) (test 2.0 g/dL 3.5-5.0 vzyk=7273) ALKALINE PHOSPHATASE 281 U/L 30-115 (BEAKER) (test vogb=135) BILIRUBIN TOTAL (BEAKER) 0.9 mg/dL 0.1-1.2 (test lplt=868) SODIUM (BEAKER) (test 140 meq/L 135-148 ecmf=120) POTASSIUM (BEAKER) (test 3.2 meq/L 3.6-5.5 sxoj=474) CHLORIDE (BEAKER) (test 105 meq/L 98-106 odjn=660) CO2 (BEAKER) (test 24 meq/L 20-29 grhq=176) BLOOD UREA NITROGEN 40 mg/dL 10-26 (BEAKER) (test eoii=521) CREATININE (BEAKER) (test 2.50 mg/dL 0.50-1.20 urnb=172) GLUCOSE RANDOM (BEAKER) 124 mg/dL 70-110 (test dsfs=916) CALCIUM (BEAKER) (test 8.1 mg/dL 8.5-10.5 olzu=433) AST (SGOT) (BEAKER) (test 21 U/L 5-40 hcgv=931) ALT (SGPT) (BEAKER) (test 14 U/L 5-50 zkfd=423) EGFR (BEAKER) (test 26 mL/min/1.73 sq m ESTIMATED GFR IS NOT lqip=4779) ACCURATE CREATININE CLEARANCE IN PREDICTING GLOMERULAR FILTRATION RATE. ESTIMATED GFR IS NOT APPLICABLE FOR DIALYSIS PATIENTS. [id number] 06:32:00 Test Item Value Reference Range Comments MAGNESIUM (BEAKER) (test snza=803) 1.5 mg/dL 1.5-3.0 POCT-GLUCOSE [id number] 23:36:00 Test Item Value Reference Range Comments POC-GLUCOSE METER (BEAKER) 131 mg/dL 70-110 TESTED AT [address] (test pxfp=8649) [facility] [address] POCT-GLUCOSE [id number] 18:17:00 Test Item Value Reference Range Comments POC-GLUCOSE METER (BEAKER) 141 mg/dL 70-110 TESTED AT [address] (test vgxt=0258) [facility] [address] PROTEIN, [id number] 17:48:00 Test Item Value Reference Range Comments PROTEIN CSF (BEAKER) (test gajw=561) 352 mg/dL 15-45 GLUCOSE, [id number] 16:59:00 Test Item Value Reference Range Comments GLUCOSE CSF (BEAKER) (test hdly=625) 4 mg/dL 40-70 POCT-GLUCOSE [id number] 12:08:00 Test Item Value Reference Range Comments POC-GLUCOSE METER (BEAKER) 139 mg/dL 70-110 TESTED AT [facility] [address] (test msmm=7195) [address] [facility] [address] HEPATITIS B SURFACE [id number] 11:27:00 Test Item Value Reference Range Comments HEPATITIS B SURFACE ANTIBODY (BEAKER) (test < mIU/mL <8.0 znsx=547) CBC W/PLT COUNT & AUTO [id number] 07:42:00 Test Item Value Reference Range Comments WHITE BLOOD CELL COUNT (BEAKER) (test alqc=789) 41.2 K/ L 4.0-10.0 RED BLOOD CELL COUNT (BEAKER) (test gadw=490) 2.53 M/ L 4.20-5.80 HEMOGLOBIN (BEAKER) (test agxx=308) 8.0 GM/DL 13.0-16.8 HEMATOCRIT (BEAKER) (test nrop=497) 23.8 % 40.0-50.0 MEAN CORPUSCULAR VOLUME (BEAKER) (test kfhw=821) 93.9 fL 82.0-98.0 MEAN CORPUSCULAR HEMOGLOBIN (BEAKER) (test 31.5 pg 27.0-33.0 fbcm=880) MEAN CORPUSCULAR HEMOGLOBIN CONC (BEAKER) (test 33.5 GM/DL 32.0-36.0 dyoi=932) RED CELL DISTRIBUTION WIDTH (BEAKER) (test 13.9 % 10.3-14.2 egkc=790) PLATELET COUNT (BEAKER) (test imyg=374) 112 K/CU MM 150-430 MEAN PLATELET VOLUME (BEAKER) (test hagw=521) 13.2 fL 6.5-10.5 NUCLEATED RED BLOOD CELLS (BEAKER) (test 0 /100 WBC 0-0 ofdl=667) (MANUAL DIFFERENTIAL)2017-02-22 07:42:00 Test Item Value Reference Range Comments NEUTROPHILS - REL (DIFF) (BEAKER) (test 87 % ejhq=6684) LYMPHOCYTES - REL (DIFF) (BEAKER) (test 6 % uqif=5363) MONOCYTES - REL (DIFF) (BEAKER) (test htbw=1644) 3 % METAMYELOCYTES-REL (DIFF) (BEAKER) (test 1 % 0-0 vmke=885) BANDS - REL (DIFF) (BEAKER) (test rvji=4635) 3 % 0-10 NEUTROPHILS - ABS (DIFF) (BEAKER) (test 35.84 K/ L 1.80-8.00 arel=2778) LYMPHOCYTES - ABS (DIFF) (BEAKER) (test 2.47 K/ L 1.48-4.50 sfxt=2596) MONOCYTES - ABS (DIFF) (BEAKER) (test cldn=5609) 1.24 K/ L 0.00-1.30 METAMYELOCTYES - ABS (DIFF) (BEAKER) (test 0.41 K/ L 0.00-0.00 vuoi=634) BANDS-ABS (DIFF) (BEAKER) (test ewig=3659) 1.2 K/ L 0.0-0.8 TOTAL COUNTED (BEAKER) (test dlby=1566) 100 BANDS + SEGMENTED NEUTROPHILS (BEAKER) (test 37.08 shcr=3451) WBC MORPHOLOGY (BEAKER) (test vrqh=138) Normal PLT MORPHOLOGY (BEAKER) (test mxzx=089) Normal ANISOCYTOSIS (BEAKER) (test jqpt=510) 1+ few HYPOCHROMIA (BEAKER) (test vyyz=079) 2+ moderate TARGET CELLS (BEAKER) (test jfhp=139) 1+ few URIC [id number] 06:39:00 Test Item Value Reference Range Comments URIC ACID (BEAKER) (test nuyb=340) 11.2 mg/dL 2.5-8.0 COMPREHENSIVE METABOLIC [id number] 06:39:00 Test Item Value Reference Range Comments TOTAL PROTEIN (BEAKER) 5.6 gm/dL 6.0-8.5 (test hhdm=634) ALBUMIN (BEAKER) (test 2.0 g/dL 3.5-5.0 wotj=0934) ALKALINE PHOSPHATASE 283 U/L 30-115 (BEAKER) (test fupt=931) BILIRUBIN TOTAL (BEAKER) 0.9 mg/dL 0.1-1.2 (test vfyh=269) SODIUM (BEAKER) (test 139 meq/L 135-148 mhco=992) POTASSIUM (BEAKER) (test 3.0 meq/L 3.6-5.5 dtir=816) CHLORIDE (BEAKER) (test 103 meq/L 98-106 vlen=185) CO2 (BEAKER) (test 20 meq/L 20-29 ldao=128) BLOOD UREA NITROGEN 78 mg/dL 10- (BEAKER) (test doqe=999) CREATININE (BEAKER) (test 4.00 mg/dL 0.50-1.20 kpgj=459) GLUCOSE RANDOM (BEAKER) 157 mg/dL 70-110 (test rjix=812) CALCIUM (BEAKER) (test 7.5 mg/dL 8.5-10.5 zpll=383) AST (SGOT) (BEAKER) (test 21 U/L 5-40 aqho=580) ALT (SGPT) (BEAKER) (test 14 U/L 5-50 pmnl=025) EGFR (BEAKER) (test 15 mL/min/1.73 sq m ESTIMATED GFR IS NOT pgwr=1725) ACCURATE CREATININE CLEARANCE IN PREDICTING GLOMERULAR FILTRATION RATE. ESTIMATED GFR IS NOT APPLICABLE FOR DIALYSIS PATIENTS. B-TYPE NATRIURETIC FACTOR (BNP)2017-02-22 06:39:00 Test Item Value Reference Range Comments B-TYPE NATRIURETIC PEPTIDE (BEAKER) (test 2856 pg/mL 0-100 fnnp=910) [id number] 06:26:00 Test Item Value Reference Range Comments MAGNESIUM (BEAKER) (test gpiv=279) 1.8 mg/dL 1.5-3.0 VANCOMYCIN LEVEL, [id number] 00:31:00 Test Item Value Reference Range Comments VANCOMYCIN RANDOM (BEAKER) (test mofd=024) 20.3 ug/mL Reference Range: No NormalsRAD, HAND, 3 VIEWS, [id number] 18:00:00Reason for exam:->severe pain with swellingFINAL REPORT Comparison: None Discussion: Multiple views are submitted of the right hand. There are no acute fractures or dislocations. There is diffuse osteopenia. No suspicious osseous lytic or blastic lesions. Nonspecific soft tissue edema seen. Impression: No acute bony abnormality. Signed: Arash Henders[place] Verified Date/Time: 02/21/2017 18:00:38 Reading Location: [facility] Radiology Reading Room Electronically signed by: ARASH HENDERSON M.D. on 06:00 PMRAD, HAND, 3 VIEWS, [id number] 17:59:00Reason for exam:-> severe pain with swellingFINAL REPORT Comparison: None Discussion: Multiple views are submitted of the left hand. Exam is limited due to portable technique and suboptimal positioning. No definite fracture or dislocation identified. There is diffuse osteopenia. There is nonspecific soft tissue edema. There is a radiopaque foreign body of unclear etiology measuring about 2 mm in between the soft tissuesof the first and second digit. Correlation with history recommended. IMPRESSION: No definite acute bony abnormality. Punctate radiopaque foreign body within the soft tissues in between the thumb and index finger. Nonspecific soft tissue edema. Signed: Arash Henderson MDR[place] Verified Date/Time: 02/21/2017 17:59:33 Reading Location: [facility] Radiology Reading Room HEPATITIS B SURFACE [id number] 14:18:00 Test Item Value Reference Range Comments HEPATITIS B SURFACE ANTIGEN (2) (BEAKER) (test Nonreactive Nonreactive ujsc=2646) POCT-GLUCOSE [id number] 12:28:00 Test Item Value Reference Range Comments POC-GLUCOSE METER (BEAKER) 191 mg/dL 70-110 TESTED AT [address] (test pnqq=1105) [address] [facility] [place] [address] U/S, ABDOMINAL, [id number] 09:26:00Reason for exam:->possible biliary obstruction, nausea, abn CT scanFINAL REPORT Technique: Sonographic images of the abdomen obtained COMPARISON: None FINDINGS : Exam is significantly limited as patient was [...] Diffusely heterogeneous liver with intrahepatic and extrahepatic bileduct dilatation as well as pancreatic duct dilatation. Underlying liver and/or pancreatic masses cannot be excluded. CT or MRI recommended. The latter could be performed using routine as well as MRCP protocol. 3. Echogenic kidneys, right being smaller than the left. This may be due to underlying medical renal disease. Bilateral renal cysts. 4. Ectasia of the infrarenal aorta. Signed: Arash Henderson MDRep[place] Verified Date/Time: 02/21/2017 09:26:31 Reading Location: [facility] Radiology Reading Room PERIPHERAL BLOOD SMEAR - PATH REVIEW LAB [id number] 09 :05:00 Test Item Value Reference Range Comments RBC MORPHOLOGY Alexandru Cells (BEAKER) (test amdb=0708) RBC MORPHOLOGY Polychromasia Normochromic (BEAKER) (test normocytic anemia with hoen=19844) slight polychromasia and a few alexandru cells. WBC MORPHOLOGY Left Shift (BEAKER) (test qlbf=1032) WBC MORPHOLOGY Toxic Granulation (BEAKER) (test micz=949553) WBC MORPHOLOGY Blasts Leukocytosis with (BEAKER) (test neutrophilia with mdpw=518256) toxic granulation. Left shift including bands, metamyelocytes, myelocytes, promyelocytes and a rare possible blast. PLT MORPHOLOGY Large Platelets (BEAKER) (test teot=9508) PERIPHERAL SMR Peripheral granulocytosis REVIEW (BEAKER) with circulating forms (test vjas=5692) beyond band level suggestive of myeloproliferative process. Clinical correlation is suggested. [id number] Amy Orozco M.D. 5 (BEAKER) (test (electronic signature) thqn=4370) HEMOGLOBIN [id number] 08:48:00 Test Item Value Reference Range Comments HEMOGLOBIN A1C (BEAKER) (test rnlj=025) 4.9 % 4.3-6.1 URIC [id number] 08:44:00 Test Item Value Reference Range Comments URIC ACID (BEAKER) (test tmib=312) 17.7 mg/dL 2.5-8.0 PROTHROMBIN [id number] 08:36:00 Test Item Value Reference Range Comments PROTIME (BEAKER) (test mukf=166) 11.4 seconds 9.3-12.0 INR (BEAKER) (test mcta=049) 1.1 <=5.9 RECOMMENDED COUMADIN/WARFARIN INR THERAPY RANGESSTANDARD DOSE: 2.0 - 3.0 Includes: PROPHYLAXIS forvenous thrombosis, systemic embolization; TREATMENT for venous thrombosis and/or pulmonary embolus.HIGH RISK: Target INR is 2.5-3.5 for patients with mechanical heart valves.[id number] 08:35:00 Test Item Value Reference Range Comments AMMONIA (BEAKER) (test ahdm=248) 42 mol/L 17-80 CBC W/PLT COUNT & AUTO [id number] 08:00:00 Test Item Value Reference Range Comments WHITE BLOOD CELL COUNT (BEAKER) (test gpgp=130) 53.9 K/ L 4.0-10.0 RED BLOOD CELL COUNT (BEAKER) (test uhwr=033) 2.79 M/ L 4.20-5.80 HEMOGLOBIN (BEAKER) (test nrxj=792) 8.7 GM/DL 13.0-16.8 HEMATOCRIT (BEAKER) (test ljsy=046) 26.4 % 40.0-50.0 MEAN CORPUSCULAR VOLUME (BEAKER) (test ntms=784) 94.6 fL 82.0-98.0 MEAN CORPUSCULAR HEMOGLOBIN (BEAKER) (test 31.2 pg 27.0-33.0 mkhb=107) MEAN CORPUSCULAR HEMOGLOBIN CONC (BEAKER) (test 33.0 GM/DL 32.0-36.0 wvlw=103) RED CELL DISTRIBUTION WIDTH (BEAKER) (test 13.6 % 10.3-14.2 kpyj=192) PLATELET COUNT (BEAKER) (test kfws=788) 150 K/CU MM 150-430 MEAN PLATELET VOLUME (BEAKER) (test ewxs=543) 13.1 fL 6.5-10.5 NUCLEATED RED BLOOD CELLS (BEAKER) (test 0 /100 WBC 0-0 ygeh=642) (MANUAL DIFFERENTIAL)2017-02-21 08:00:00 Test Item Value Reference Range Comments NEUTROPHILS - REL (DIFF) (BEAKER) (test 81 % zfgn=7620) LYMPHOCYTES - REL (DIFF) (BEAKER) (test 11 % zapw=2085) MONOCYTES - REL (DIFF) (BEAKER) (test ddka=8357) 5 % METAMYELOCYTES-REL (DIFF) (BEAKER) (test 1 % 0-0 lewj=350) BANDS - REL (DIFF) (BEAKER) (test oted=7792) 2 % 0-10 NEUTROPHILS - ABS (DIFF) (BEAKER) (test 43.66 K/ L 1.80-8.00 lsxw=0368) LYMPHOCYTES - ABS (DIFF) (BEAKER) (test 5.93 K/ L 1.48-4.50 tgzf=2241) MONOCYTES - ABS (DIFF) (BEAKER) (test mohz=5903) 2.70 K/ L 0.00-1.30 METAMYELOCTYES - ABS (DIFF) (BEAKER) (test 0.54 K/ L 0.00-0.00 zndf=030) BANDS-ABS (DIFF) (BEAKER) (test ottj=2449) 1.1 K/ L 0.0-0.8 TOTAL COUNTED (BEAKER) (test xgwy=4094) 100 BANDS + SEGMENTED NEUTROPHILS (BEAKER) (test 44.74 dgvy=9613) MANUAL NRBC PER 100 CELLS (BEAKER) (test 2 /100 WBC 0-0 wgio=0316) WBC MORPHOLOGY (BEAKER) (test rozg=839) Normal PLT MORPHOLOGY (BEAKER) (test ezbo=410) Normal ANISOCYTOSIS (BEAKER) (test skcp=015) 1+ few POIKILOCYTES (BEAKER) (test apol=288) 1+ few COMPREHENSIVE METABOLIC [id number] 07:06:00 Test Item Value Reference Range Comments TOTAL PROTEIN (BEAKER) 5.9 gm/dL 6.0-8.5 (test btcv=611) ALBUMIN (BEAKER) (test 2.1 g/dL 3.5-5.0 mrjr=6130) ALKALINE PHOSPHATASE 286 U/L 30-115 (BEAKER) (test szag=212) BILIRUBIN TOTAL (BEAKER) 0.8 mg/dL 0.1-1.2 (test fmxc=719) SODIUM (BEAKER) (test 130 meq/L 135-148 fadf=860) POTASSIUM (BEAKER) (test 4.0 meq/L 3.6-5.5 fvnz=835) CHLORIDE (BEAKER) (test 104 meq/L 98-106 ugut=174) CO2 (BEAKER) (test 8 meq/L 20-29 bpwr=551) BLOOD UREA NITROGEN 123 mg/dL 10-26 (BEAKER) (test wvsh=161) CREATININE (BEAKER) (test 5.80 mg/dL 0.50-1.20 fpno=204) GLUCOSE RANDOM (BEAKER) 196 mg/dL 70-110 (test fpvk=971) CALCIUM (BEAKER) (test 7.0 mg/dL 8.5-10.5 kbxr=979) AST (SGOT) (BEAKER) (test 16 U/L 5-40 oift=946) ALT (SGPT) (BEAKER) (test 12 U/L 5-50 zndv=237) EGFR (BEAKER) (test 10 mL/min/1.73 sq m ESTIMATED GFR IS NOT jigr=9863) ACCURATE CREATININE CLEARANCE IN PREDICTING GLOMERULAR FILTRATION RATE. ESTIMATED GFR IS NOT APPLICABLE FOR DIALYSIS PATIENTS. [id number] 06:46:00 Test Item Value Reference Range Comments PHOSPHORUS (BEAKER) (test jaat=517) 6.9 mg/dL 2.5-4.5 [id number] 06:41:00 Test Item Value Reference Range Comments MAGNESIUM (BEAKER) (test etsp=222) 1.3 mg/dL 1.5-3.0 RAD, CHEST, 1 VIEW, NON [id number] 05:02:00Reason for exam:->sobShould this be performed at the bedside?->YesFINAL REPORT Comparison examination: None No pneumothorax, focal pulmonary consolidation, or significant pleural effusion. Normal cardiomediastinal contours. Atherosclerotic arterial calcifications. Normal skeleton and soft tissues. Impression: No acute abnormality. Signed:Enrique Zamoranoepmack Verified Date/ Time: 02/21/2017 05:02:29 Reading Location: [facility] [id number] Ortho Consult Reading Room POCT-GLUCOSE [id number] 02:37:00 Test Item Value Reference Range Comments POC-GLUCOSE METER (BEAKER) 162 mg/dL 70-110 TESTED AT [facility] [address] (test mk[address]=9265) [address] [facility] [place] [address] COMPREHENSIVE METABOLIC [id number] 00:19:00 Test Item Value Reference Range Comments TOTAL PROTEIN (BEAKER) 6.4 gm/dL 6.0-8.5 (test iivk=837) ALBUMIN (BEAKER) (test 2.4 g/dL 3.5-5.0 dbsi=4437) ALKALINE PHOSPHATASE 316 U/L 30-115 (BEAKER) (test uksp=233) BILIRUBIN TOTAL (BEAKER) 0.9 mg/dL 0.1-1.2 (test xyuw=124) SODIUM (BEAKER) (test 129 meq/L 135-148 hvuj=383) POTASSIUM (BEAKER) (test 4.2 meq/L 3.6-5.5 jwzd=549) CHLORIDE (BEAKER) (test 103 meq/L 98-106 fhvp=825) CO2 (BEAKER) (test < meq/L 20-29 fknc=600) BLOOD UREA NITROGEN 119 mg/dL 10-26 (BEAKER) (test cgfo=536) CREATININE (BEAKER) (test 6.00 mg/dL 0.50-1.20 nroh=787) GLUCOSE RANDOM (BEAKER) 155 mg/dL 70-110 (test nbfm=141) CALCIUM (BEAKER) (test 7.6 mg/dL 8.5-10.5 kpao=178) AST (SGOT) (BEAKER) (test 17 U/L 5-40 vgwl=652) ALT (SGPT) (BEAKER) (test 12 U/L 5-50 daqk=834) EGFR (BEAKER) (test 10 mL/min/1.73 sq m ESTIMATED GFR IS NOT bxfu=3146) ACCURATE CREATININE CLEARANCE IN PREDICTING GLOMERULAR FILTRATION RATE. ESTIMATED GFR IS NOT APPLICABLE FOR DIALYSIS PATIENTS. (MANUAL DIFFERENTIAL)2017-02-21 00:02:00 Test Item Value Reference Range Comments NEUTROPHILS - REL (DIFF) (BEAKER) (test 88 % heqf=3294) LYMPHOCYTES - REL (DIFF) (BEAKER) (test 3 % jqnf=4545) MONOCYTES - REL (DIFF) (BEAKER) (test btrf=3708) 2 % METAMYELOCYTES-REL (DIFF) (BEAKER) (test 2 % 0-0 xufr=928) BANDS - REL (DIFF) (BEAKER) (test dezh=2802) 5 % 0-10 NEUTROPHILS - ABS (DIFF) (BEAKER) (test 50.60 K/ L 1.80-8.00 hjju=3697) LYMPHOCYTES - ABS (DIFF) (BEAKER) (test 1.73 K/ L 1.48-4.50 gcxc=1413) MONOCYTES - ABS (DIFF) (BEAKER) (test qvar=1371) 1.15 K/ L 0.00-1.30 METAMYELOCTYES - ABS (DIFF) (BEAKER) (test 1.15 K/ L 0.00-0.00 kvjx=071) BANDS-ABS (DIFF) (BEAKER) (test zqjy=3284) 2.9 K/ L 0.0-0.8 TOTAL COUNTED (BEAKER) (test pnoq=6484) 100 BANDS + SEGMENTED NEUTROPHILS (BEAKER) (test 53.48 bqtf=7521) WBC MORPHOLOGY (BEAKER) (test huyw=024) Normal PLT MORPHOLOGY (BEAKER) (test vvrg=359) Normal RBC MORPHOLOGY (BEAKER) (test sagm=588) Normal CBC W/PLT COUNT & AUTO [id number] 23:56:00 Test Item Value Reference Range Comments WHITE BLOOD CELL COUNT (BEAKER) (test qqmf=038) 57.5 K/ L 4.0-10.0 RED BLOOD CELL COUNT (BEAKER) (test ihdn=783) 3.17 M/ L 4.20-5.80 HEMOGLOBIN (BEAKER) (test cmyg=720) 9.9 GM/DL 13.0-16.8 HEMATOCRIT (BEAKER) (test qbdu=346) 29.4 % 40.0-50.0 MEAN CORPUSCULAR VOLUME (BEAKER) (test wwiq=840) 93.0 fL 82.0-98.0 MEAN CORPUSCULAR HEMOGLOBIN (BEAKER) (test 31.2 pg 27.0-33.0 yysg=965) MEAN CORPUSCULAR HEMOGLOBIN CONC (BEAKER) (test 33.6 GM/DL 32.0-36.0 xmvl=291) RED CELL DISTRIBUTION WIDTH (BEAKER) (test 13.0 % 10.3-14.2 vznd=051) PLATELET COUNT (BEAKER) (test rxnm=564) 178 K/CU MM 150-430 MEAN PLATELET VOLUME (BEAKER) (test mehs=853) 13.1 fL 6.5-10.5 NEUTROPHILS RELATIVE PERCENT (BEAKER) (test 94 % ukpt=906) LYMPHOCYTES RELATIVE PERCENT (BEAKER) (test 3 % mize=455) MONOCYTES RELATIVE PERCENT (BEAKER) (test 3 % ovce=551) EOSINOPHILS RELATIVE PERCENT (BEAKER) (test 0 % tlib=401) BASOPHILS RELATIVE PERCENT (BEAKER) (test 0 % oesn=377) NEUTROPHILS ABSOLUTE COUNT (BEAKER) (test 54.00 K/ L 1.80-8.00 qkfe=920) LYMPHOCYTES ABSOLUTE COUNT (BEAKER) (test 1.40 K/ L 1.48-4.50 fobr=977) MONOCYTES ABSOLUTE COUNT (BEAKER) (test 1.90 K/ L 0.00-1.30 dduz=557) EOSINOPHILS ABSOLUTE COUNT (BEAKER) (test 0.10 K/ L 0.00-0.50 ogdy=787) BASOPHILS ABSOLUTE COUNT (BEAKER) (test 0.10 K/ L 0.00-0.20 xgml=703) URIC [id number] 23:52:00 Test Item Value Reference Range Comments URIC ACID (BEAKER) (test radi=306) 18.3 mg/dL 2.5-8.0 [id number] 23:46:00 Test Item Value Reference Range Comments PHOSPHORUS (BEAKER) (test ngui=145) 6.9 mg/dL 2.5-4.5 URINALYSIS W/ [id number] 23:39:00 Test Item Value Reference Range Comments COLOR (BEAKER) (test sypt=324) Yellow CLARITY (BEAKER) (test yhjy=385) Cloudy SPECIFIC GRAVITY UA (BEAKER) (test btjf=156) 1.020 1.001-1.035 PH UA (BEAKER) (test wfvs=500) 5.5 5.0-8.0 PROTEIN UA (BEAKER) (test frdg=398) 100 mg/dL Negative GLUCOSE UA (BEAKER) (test mmjj=684) Negative Negative KETONES UA (BEAKER) (test yrue=808) Negative Negative BILIRUBIN UA (BEAKER) (test dpip=011) Negative Negative BLOOD UA (BEAKER) (test khbm=819) Large Negative NITRITE UA (BEAKER) (test zguv=383) Positive Negative LEUKOCYTE ESTERASE UA (BEAKER) (test ruis=120) Moderate Negative UROBILINOGEN UA (BEAKER) (test ikgk=690) 0.2 mg/dL 0.2-1.0 BACTERIA (BEAKER) (test jrfn=110) Many RBC UA-MANUAL (BEAKER) (test rsxy=1127) 50-100 /HPF WBC UA-MANUAL (BEAKER) (test bxpf=1807) 10-20 /HPF SQUAMOUS EPITHELIAL MANUAL (BEAKER) (test <5 /HPF zqff=7827) SOURCE(BEAKER) (test jknx=9958) BLOOD GAS, [id number] 23:23:00 Test Item Value Reference Range Comments PH ARTERIAL (BEAKER) (test ykkk=935) 7.42 7.35-7.45 PCO2 ARTERIAL (BEAKER) (test ynny=358) 10 mmHg 35-45 PO2 ARTERIAL (BEAKER) (test dcis=078) 125 mmHg 80-90 O2 SATURATION ARTERIAL (BEAKER) (test ffdt=677) 98.7 % 96.0-97.0 HCO3 ARTERIAL (BEAKER) (test zyjn=075) 6 mmol/L 21-29 BASE EXCESS ARTERIAL (BEAKER) (test mmhq=848) -15.4 mmol/L -2.0-3.0 PATIENT TEMPERATURE (BEAKER) (test avfs=5740) 37.0 C FIO2 (BEAKER) (test otto=2661) 28.0 %
[2018-01-14] MEDS ORDERED: NA CHLORIDE 0.9% 1,000 ML ONE (10:04)
[2018-01-14] MEDS ORDERED: FENTANYL CITR 100 MCG/2 ML ONE ×2 (10:54)
[2018-01-14] MEDS ORDERED: MIDAZOLAM HCL 2 MG/2 ML INJ ONE (10:54)
[2018-01-14] MEDS ORDERED: NALOXONE 0.4 MG/ML VIAL ONE (10:56)
[2018-01-14] MEDS ORDERED: FLUMAZENIL 0.1 MG/ML (5 mL VIAL) IV ONE (10:56)
[2018-01-14] MEDS ORDERED: DIPHENHYDRAMINE 50 MG/ML VIAL ONE (10:56)
--- NOTE | 2018-01-14 12:15 | RAD REPORT ---
EXAM DESCRIPTION: US - Biopsy Renal - 01/14/2018 11:41 am CLINICAL HISTORY: Renal failure COMPARISON: No comparisons FINDINGS: Preoperative diagnosis: Renal failure. Post operative diagnosis: Same. Conscious Sedation: 45 minutes of IV conscious sedation utilizing fentanyl and midazolam. Fluoroscopy time: None Contrast used: None Estimated blood loss: Minimal Specimens:2 x 18 gauge core specimens The left flank was prepped and draped in the usual sterile fashion. 1% lidocaine was infiltrated into the subcutaneous tissues for local anesthesia. Real time ultrasound scanning of the left kidney demo nstrated suitable sonographic window. Under ultrasound guidance, using a 18-gauge, 6 cm long, 2 cm th row core biopsy gun, 2 specimens were obtained of this lesion and sent to pathology for evaluation. T here were no complications. IMPRESSION: Successful ultrasound-guided nonfocal left renal biopsy.
[2018-01-14] MEDS ORDERED: ONDANSETRON 4 MG (ODT) TAB PO PRN (15:06)
[2018-01-14] MEDS ORDERED: HYDROCODONE/APAP 7.5/325 MG TAB PO PRN (15:06)
[2018-01-14] MEDS ORDERED: ONDANSETRON 4 MG/2 ML VIAL IV PRN (15:06)
[2018-01-14] MEDS ORDERED: TRAMADOL HCL 50 MG TAB PO PRN (15:06)
--- NOTE | 2018-01-14 15:18 | P.HP ---
Certification for Inpatient Patient admitted to: Observation With expected LOS: <2 Midnights Patient will require the following post-hospital care: None Practitioner: I am a practitioner with admitting privileges, knowledge of patient current condition, hospital course, and medical plan of care. Services: Services provided to patient in accordance with Admission requirements found in Title 42 Section 412.3 of the Code of Federal Regulations Patient History Date of Service: 01/14/18 Primary Care Provider: Dr. Aguilar Reason for admission: Acute renal failure History of Present Illness: 62-year-old male presented as a direct admit for acute renal failure. Patient had ultrasound-guided renal biopsy today. Nephrology wanted to monitor the patient closely as the patient has solitary kidney and is high risk for complication. Patient with history of hypertension and tobacco use. Patient has history of solitary kidney for quite some time. He reported that he had a vascular injury in the past. Patient doing well post renal biopsy. Patient without any significant complaints. Case discussed at length with nephrology. Allergies No Known Allergies Allergy (Unverified 01/14/18 10:44) Home medications list reviewed: Yes Home Medications: Amlodipine [Norvasc] 10 mg PO DAILY 01/14/18 Cranberry Conc/C/Bacill Coag [Cranberry Tablet] 1 each PO DAILY 01/14/18 Docosahexanoic AC/Epa [Fish Oil 1,000 MG CAP] 1,000 mg PO DAILY 01/14/18 Labetalol HCl [Trandate] 200 mg PO BID 01/14/18 Na Bicarb Tab [Sodium Bicarb 325 MG] 650 mg PO TID 01/14/18 - Past Medical/Surgical History -: Hypertension -: Chronic renal disease -: Solitary kidney -: Tobacco abuse -: Cholecystectomy Psychosocial/ Personal History: Patient is single. He has no children. He currently works. - Family History Mother -: Cancer (Lung cancer and colon cancer) Father -: Heart disease - Social History Smoking Status: Current every day smoker Counseled patient to stop smoking for: less than 10 minutes Smoking therapy provided: Yes Patient receptive to therapy: Yes Alcohol use: No CD- Drugs: No Caffeine use: Yes Place of Residence: Home Review of Systems General: Unremarkable Eyes: Unremarkable ENT: Unremarkable Respiratory: Unremarkable Cardiovascular: Unremarkable Gastrointestinal: Unremarkable Genitourinary: Unremarkable Musculoskeletal: Unremarkable Integumentary: Unremarkable Neurological: Unremarkable Lymphatics: Unremarkable Physical Examination - Vital Signs Temperature: 97.8 F Blood Pressure: 146/67 Pulse: 73 Respirations: 16 - Physical Exam General: Alert, In no apparent distress, Oriented x3, Cooperative HEENT: Atraumatic, Normocephalic, PERRLA, Mucous membr. moist/pink Neck: Supple, No Thyromegaly Respiratory: Clear to auscultation bilaterally, Normal air movement Cardiovascular: Normal pulses, Regular rate/rhythm Gastrointestinal: Normal bowel sounds, Soft and benign, Non-distended, No tenderness, No masses, No rebound, No guarding Musculoskeletal: No contractures, No erythema, No tenderness, No warmth Integumentary: No tenderness/swelling, No erythema, No warmth, No cyanosis Neurological: Normal speech, Normal strength at 5/5 x4 extr, Normal tone, Normal affect Assessment and Plan - Plan Impression: Acute on chronic renal failure Status post ultrasound-guided renal biopsy Hypertension Tobacco abuse Plan: Patient is status post ultrasound-guided renal biopsy for acute on chronic renal failure. Case discussed at length with nephrology. Will monitor patient closely. Will monitor hemoglobin as the patient is high risk for complication. Will monitor for acute anemia. Will continue with his hypertension medication. Will educate on tobacco cessation. Will recheck lab in the morning. If stable the patient can be discharged home tomorrow. Discharge Plan: Home Plan to discharge in: 24 Hours - Advance Directives Does patient have a Living Will: No Does patient have a Durable POA for Healthcare: No - Code Status/Comfort Care Code Status Assessed: Yes Code Status: Full Code Time Spent Managing Pts Care (In Minutes): 55
[2018-01-14 15:43] LABS: Absolute Lymphocytes (CBC) 1.9 K/uL (0.7-4.9); Absolute Monocytes 1.2 K/uL (0.1-1.3); Absolute Neutrophil 5.6 K/uL (1.8-8.0); Basophils % 2.3 % (0-1.3); Eosinophils % 5.6 % (0-4.4); Hematocrit 25.2 % (39.6-49.0); Lymphocytes % 20.4 % (15.3-44.8); MCH 32.2 pg (27.0-35.0); MCV 93.2 fL (80-100); MPV 10.2 fL (7.6-11.3); Monocytes % 12.3 % (3.3-12.3)
[2018-01-14 16:05] LABS: Magnesium 2.1 mg/dL (1.8-2.4); Potassium 3.5 mmol/L (3.5-5.1)
[2018-01-14] MEDS: ACETAMINOPHEN 500 MG TAB PO PRN ×2 (17:39→23:41)
[2018-01-14 20:02] LABS: Hematocrit 25.6 % (39.6-49.0)
[2018-01-14] MEDS: LABETALOL HCL 100 MG TAB PO SCH (20:43)
[2018-01-14] MEDS ORDERED: SODIUM BICARB 325 MG TAB PO SCH (21:00)
[2018-01-14] MEDS ORDERED: DIPHENHYDRAMINE 25 MG TAB/CAP PO ONE (21:27)
[2018-01-14] MEDS ORDERED: EPOETIN ALFA 10,000 UNIT/ML SQ ONE (21:40)
[2018-01-14] MEDS ORDERED: EPOETIN ALFA 10,000 UNIT/ML VIAL ONE (23:34)
[2018-01-15] MEDS ORDERED: RANITIDINE 150 MG TABLET PO SCH (00:11)
[2018-01-15 05:21] LABS: Hematocrit 24.2 % (39.6-49.0); Lymphocytes % 17.8 % (15.3-44.8); MCH 31.9 pg (27.0-35.0); MCV 93.8 fL (80-100); MPV 10.4 fL (7.6-11.3); RBC Red Blood Cell Count 2.58 M/uL (4.33-5.43)
[2018-01-15 05:22] LABS: Absolute Monocytes 1.6 K/uL (0.1-1.3); Absolute Neutrophil 6.5 K/uL (1.8-8.0); Basophils % 1.8 % (0-1.3); Eosinophils % 6.2 % (0-4.4)
[2018-01-15 05:53] LABS: Albumin 2.1 g/dL (3.4-5.0); Bilirubin Direct 0.1 mg/dL (0-0.2); Bilirubin Total 0.4 mg/dL (0.2-1.0); Phosphorus 6.5 mg/dL (2.5-4.9); Potassium 3.2 mmol/L (3.5-5.1); Protein, Total 6.2 g/dL (6.4-8.2); Uric Acid 9.1 mg/dL (3.5-7.2)
[2018-01-15 06:26] LABS: Urine Appearance CLEAR; Urine Bilirubin NEGATIVE (NEG); Urine Blood 1+ (NEG); Urine Color YELLOW; Urine Glucose 1+ (NEG); Urine Protein 3+ (NEG); Urine Specific Gravity 1.015 (1.005-1.030); Urine Urobilinogen 0.2 mg/dL (0.2-1.0)
[2018-01-15 06:37] LABS: Urine Bacteria <20 /HPF (NONE SEEN); Urine Culture Reflex Order NOT NEEDED
--- NOTE | 2018-01-15 07:25 | P.DS ---
Admission Date: 01/14/18 Discharge Date: 01/15/18 Primary Care Provider: Nephrology-Dr. Aguilar Disposition: ROUTINE DISCHARGE Discharge Condition: GOOD Reason for Admission: Acute renal failure Procedures: Ultrasound-guided renal biopsy done - Problems (1) Chronic renal disease Current Visit: Yes Status: Acute Qualifiers: Chronic kidney disease stage: stage 5, not on chronic dialysis Qualified Code(s): N18.5 - Chronic kidney disease, stage 5 (2) HTN (hypertension) Current Visit: Yes Status: Chronic Qualifiers: Hypertension type: essential hypertension Qualified Code(s): I10 - Essential (primary) hypertension (3) Hypokalemia Current Visit: Yes Status: Acute (4) Hypocalcemia Current Visit: Yes Status: Acute (5) Anemia Current Visit: Yes Status: Chronic Qualifiers: Anemia type: due to chronic kidney disease Chronic kidney disease stage: stage 5, not on chronic dialysis Qualified Code(s): N18.5 - Chronic kidney disease, stage 5; D63.1 - Anemia in chronic kidney disease Brief History of Present Illness: 62-year-old male presented as a direct admit for acute renal failure. Patient had ultrasound-guided renal biopsy today. Nephrology wanted to monitor the patient closely as the patient has solitary kidney and is high risk for complication. Patient with history of hypertension and tobacco use. Patient has history of solitary kidney for quite some time. He reported that he had a vascular injury in the past. Patient doing well post renal biopsy. Patient without any significant complaints. Case discussed at length with nephrology. Hospital Course: Patient was observed overnight after ultrasound-guided renal biopsy. Patient with acute on chronic renal disease. Patient is seen and evaluated by nephrology. Case discussed with his evp managing director. Patient did well Overnite. No significant pain noted. Hemoglobin was monitored. No significant drop in hemoglobin was identified. At discharge patient was without any significant abdominal pain. At discharge patient will follow up with nephrology in 1 week to go over biopsy report. At discharge patient will continue with Renvela 800 mg 1 pill 3 times a day and sodium bicarbonate 650 mg 1 pill 3 times a day. Recommendation to recheck CBC and CMP in 1 week to monitor his progress. Patient may require dialysis in the future if his condition worsens. This can be further addressed by nephrology. Recommendation on no heavy lifting greater than 10 lb for the next 3 days. Recommendation on no blood thinners for at least 3 days after the procedure. Patient has hypertension. Patient will continue with his medications including labetalol 200 mg 1 pill twice daily and Norvasc 10 mg 1 pill daily. Recommendation is to maintain blood pressures less 150/80. Further adjustment can be done by nephrology. Patient with hypokalemia and hypocalcemia. This is likely related to his kidney disease. At discharge patient will continue with calcitriol 0.25 mcg 1 pill daily and vitamin-D 5000 units once daily. Recommendation to recheck lab- CMP in 1 week to monitor his progress. Patient may require further supplementation. This can be further addressed by a nephrology. Patient has GERD. Patient will continue with his medication-Zantac 150 mg daily. Vital Signs/Physical Exam: Temp Pulse Resp BP Pulse Ox 98.2 F 69 16 158/79 H 98 01/15/18 04:00 01/15/18 04:00 01/15/18 04:00 01/15/18 04:00 01/15/18 04:00 General: Alert, In no apparent distress, Oriented x3, Cooperative HEENT: Atraumatic, Mucous membr. moist/pink Neck: Supple, No Thyromegaly Respiratory: Clear to auscultation bilaterally, Normal air movement Cardiovascular: Normal pulses, Regular rate/rhythm Gastrointestinal: Normal bowel sounds, Soft and benign, Non-distended, No tenderness, No masses, No rebound, No guarding Musculoskeletal: No erythema, No tenderness, No warmth Integumentary: No tenderness/swelling, No erythema, No warmth, No cyanosis Neurological: Normal speech, Normal strength at 5/5 x4 extr, Normal tone, Normal affect Laboratory Data at Discharge: WBC 11.0 K/uL (4.3-10.9) H D 01/15/18 04:45 Hgb 8.2 g/dL (13.6-17.9) L 01/15/18 04:45 Hct 24.2 % (39.6-49.0) L 01/15/18 04:45 Plt Count 261 K/uL (152-406) 01/15/18 04:45 Sodium 141 mmol/L (136-145) 01/15/18 04:45 Potassium 3.2 mmol/L (3.5-5.1) L 01/15/18 04:45 BUN 73 mg/dL (7-18) H 01/15/18 04:45 Creatinine 6.50 mg/dL (0.55-1.3) H* 01/15/18 04:45 Glucose 97 mg/dL (74-106) 01/15/18 04:45 Uric Acid 9.1 mg/dL (3.5-7.2) H 01/15/18 04:45 Phosphorus 6.5 mg/dL (2.5-4.9) H 01/15/18 04:45 Magnesium 2.1 mg/dL (1.8-2.4) 01/14/18 15:20 Total Bilirubin 0.4 mg/dL (0.2-1.0) 01/15/18 04:45 AST 15 U/L (15-37) 01/15/18 04:45 ALT 11 U/L (12-78) L 01/15/18 04:45 Alkaline Phosphatase 138 U/L (45-117) H 01/15/18 04:45 Home Medications: Amlodipine [Norvasc*] 10 mg PO DAILY 01/14/18 Cranberry Conc/C/Bacill Coag [Cranberry Tablet] 1 each PO DAILY 01/14/18 Docosahexanoic AC/Epa [Fish Oil 1,000 MG*] 1,000 mg PO DAILY 01/14/18 Labetalol HCl [Trandate] 200 mg PO BID 01/14/18 Na Bicarb Tab [Sodium Bicarb 325 MG Tab*] 650 mg PO TID 01/14/18 Ranitidine [Zantac*] 150 mg PO DAILY 6PM 01/14/18 Calcitrol [Rocaltrol*] 0.25 mcg PO DAILY #30 cap 01/15/18 Cholecalciferol (Vitamin D3) [Vitamin D 5,000 IU Cap*] 5,000 unit PO DAILY #30 cap 01/15/18 Sevelamer Carbonate [Renvela*] 800 mg PO TIDWM #90 tablet 01/15/18 Tramadol HCl [Ultram] 50 mg PO DAILY PRN #10 tablet 01/15/18 New Medications: Calcitrol [Rocaltrol*] 0.25 mcg PO DAILY #30 cap Cholecalciferol (Vitamin D3) [Vitamin D 5,000 IU Cap*] 5,000 unit PO DAILY #30 cap Sevelamer Carbonate [Renvela*] 800 mg PO TIDWM #90 tablet Tramadol HCl [Ultram] 50 mg PO DAILY PRN #10 tablet PRN Reason: Pain Patient Discharge Instructions: 1. Patient will need to follow up his PCP in 1 week to follow up this hospitalization. 2. Patient was observed overnight after ultrasound-guided renal biopsy. Patient with acute on chronic renal disease. Patient is seen and evaluated by nephrology. Case discussed with his evp managing director. Patient did well Overnite. No significant pain noted. Hemoglobin was monitored. No significant drop in hemoglobin was identified. At discharge patient will follow up with nephrology in 1 week to go over biopsy report. At discharge patient will continue with Renvela 800 mg 1 pill 3 times a day and sodium bicarbonate 650 mg 1 pill 3 times a day. Recommendation to recheck CBC and CMP in 1 week to monitor his progress. Patient may require dialysis in the future if his condition worsens. This can be further addressed by nephrology. Recommendation on no heavy lifting greater than 10 lb for the next 3 days. Recommendation on no blood thinners for at least 3 days after the procedure. A limited supply of pain medication-tramadol 50 mg 1 pill 3 times a day to be use as needed will be provided. 3. Patient has hypertension. Patient will continue with his medications including labetalol 200 mg 1 pill twice daily and Norvasc 10 mg 1 pill daily. Recommendation is to maintain blood pressures less 150/80. Further adjustment can be done by nephrology. 4. Patient with hypokalemia and hypocalcemia. This is likely related to his kidney disease. At discharge patient will continue with calcitriol 0.25 mcg 1 pill daily and vitamin-D 5000 units once daily. Recommendation to recheck lab- CMP in 1 week to monitor his progress. Patient may require further supplementation. This can be further addressed by a nephrology. 5. Patient has GERD. Patient will continue with his medication-Zantac 150 mg daily. Diet: Renal Activity: Ad pete Time spent managing pt's care (in minutes): 55
[2018-01-15] MEDS ORDERED: POTASSIUM CL SA 10 MEQ TAB PO ONE (07:38)
[2018-01-15] MEDS: POTASSIUM 25 MEQ EFFERV TAB PO ONE ×2 (07:40→09:02)
[2018-01-15] MEDS ORDERED: SEVELAMER CARBONATE 800 MG TABLET PO SCH (08:00)
[2018-01-15] MEDS ORDERED: NACHLORIDE 0.45% 500 ML IV SCH (08:15)
[2018-01-15] MEDS ORDERED: AMLODIPINE 10 MG TAB PO SCH (09:00)
[2018-01-15] MEDS ORDERED: CALCITROL 0.25 MCG CAP PO SCH (09:00)
[2018-01-15] MEDS ORDERED: VITAMIN D 5,000 UNIT CAP PO SCH (09:00)
[2018-01-15] MEDS ORDERED: SODIUM BICARB 325 MG TAB PO SCH (09:00)
[2018-01-15] MEDS: LABETALOL HCL 100 MG TAB PO SCH (09:03)
[2018-01-15] MEDS ORDERED: POTASSIUM 25 MEQ EFFERV TAB PO ONE (11:00)
--- NOTE | 2018-01-16 20:10 | P.CNS ---
Date of Consult: 01/15/18 Reason for Consult: LILA/ CKD Requesting Physician: Mario Devine Primary Care Provider: Nephrology-Dr. Aguilar Chief Complaint: Acute renal failure History of Present Illness: 62 yo WM CKD, HTN presented to the hospital as a direct for a kidney biopsy in the setting of severe, progressive LILA/ CKD with associated proteinuria and hematuria in the setting of DM and HTN. No NSAIDs. No bladder emptying difficulties. 62-year-old male presented as a direct admit for acute renal failure. Patient had ultrasound-guided renal biopsy today. Nephrology wanted to monitor the patient closely as the patient has solitary kidney and is high risk for complication. Patient with history of hypertension and tobacco use. Patient has history of solitary kidney for quite some time. He reported that he had a vascular injury in the past. Patient doing well post renal biopsy. Patient without any significant complaints. Allergies No Known Allergies Allergy (Unverified 01/14/18 10:44) Home medications list reviewed: Yes Home Medications: Amlodipine [Norvasc*] 10 mg PO DAILY 01/14/18 Cranberry Conc/C/Bacill Coag [Cranberry Tablet] 1 each PO DAILY 01/14/18 Docosahexanoic AC/Epa [Fish Oil 1,000 MG*] 1,000 mg PO DAILY 01/14/18 Labetalol HCl [Trandate] 200 mg PO BID 01/14/18 Na Bicarb Tab [Sodium Bicarb 325 MG Tab*] 650 mg PO TID 01/14/18 Ranitidine [Zantac*] 150 mg PO DAILY 6PM 01/14/18 Calcitrol [Rocaltrol*] 0.25 mcg PO DAILY #30 cap 01/15/18 Cholecalciferol (Vitamin D3) [Vitamin D 5,000 IU Cap*] 5,000 unit PO DAILY #30 cap 01/15/18 Sevelamer Carbonate [Renvela*] 800 mg PO TIDWM #90 tablet 01/15/18 Tramadol HCl [Ultram] 50 mg PO DAILY PRN #10 tablet 01/15/18 - Past Medical/Surgical History Diabetic: Yes -: Hypertension -: Chronic renal disease -: Solitary kidney -: Tobacco abuse -: Cholecystectomy Psychosocial/ Personal History: Patient is single. He has no children. He currently works. - Family History Mother Medical History: Cancer (Lung cancer and colon cancer) Father Medical History: Heart disease - Social History Alcohol use: No CD- Drugs: No Caffeine use: Yes Place of Residence: Home Review of Systems 10-point ROS is otherwise unremarkable Physical Examination Temp Pulse Resp BP Pulse Ox 98.9 F 71 16 170/82 H 96 01/15/18 08:00 01/15/18 09:03 01/15/18 08:00 01/15/18 09:03 01/15/18 08:00 General: In no apparent distress, Oriented x3, Cooperative HEENT: Normocephalic Neck: Supple, No LAD Respiratory: Normal air movement Cardiovascular: No edema, Regular rate/rhythm, No rubs Gastrointestinal: Soft and benign, Non-distended Musculoskeletal: No clubbing, No contractures Integumentary: No rashes Neurological: Normal speech Blood work reviewed in the chart. Hgb 8.2; K 3.2 Imagings Data: EXAM DESCRIPTION: US - Biopsy Renal - 01/14/2018 11:41 am CLINICAL HISTORY: Renal failure COMPARISON: No comparisons FINDINGS: Preoperative diagnosis: Renal failure. Post operative diagnosis: Same. Conscious Sedation: 45 minutes of IV conscious sedation utilizing fentanyl and midazolam. Fluoroscopy time: None Contrast used: None Estimated blood loss: Minimal Specimens:2 x 18 gauge core specimens The left flank was prepped and draped in the usual sterile fashion. 1% lidocaine was infiltrated into the subcutaneous tissues for local anesthesia. Real time ultrasound scanning of the left kidney demonstrated suitable sonographic window. Under ultrasound guidance, using a 18-gauge, 6 cm long, 2 cm throw core biopsy gun, 2 specimens were obtained of this lesion and sent to pathology for evaluation. There were no complications. IMPRESSION: Successful ultrasound-guided nonfocal left renal biopsy. Conclusions/Impression: A/ LILA/ CKD of unclear etiology. Unilateral kidney. Proteinuria. Hematuria. HTN with CKD. Hypokalemia. Acidosis. DM II with CKD. Anemia in chronic illness. FARNAZ/ Secondary HyperPTH. Hypocalcemia. HyperPO4. Moderate malnutrition. Hypoalbuminemia. P/ Continue current POC and Medications. Follow up results of renal biopsy. Give IVF. Replete potassium. Counseled regarding diet. Give Epo. No NSAIDs. AM labs. Daily weight. Thank you kindly for the consultation. Follow up with Dr. Aguilar.
== END 2018-01-15 09:20 | disposition home or self-care (01) ==
LOC: DS 08:40 → 2ND 14:47
PROVIDERS: ADMIT Family Medicine; ATTEND Family Medicine
PROC: 0TB13ZX Excision of Left Kidney, Percutaneous Approach, Diagnostic (ICD-10-PCS; principal; 2018-01-14)
DX: I12.0 Hypertensive chronic kidney disease with stage 5 chronic kidney disease or end stage renal disease (principal); N18.5 Chronic kidney disease, stage 5; N17.9 Acute kidney failure, unspecified; E87.6 Hypokalemia; E83.51 Hypocalcemia; D63.1 Anemia in chronic kidney disease; Z90.5 Acquired absence of kidney; K21.9 Gastro-esophageal reflux disease without esophagitis; F17.210 Nicotine dependence, cigarettes, uncomplicated; E46 Unspecified protein-calorie malnutrition; Z68.20 Body mass index [BMI] 20.0-20.9, adult
CPT/HCPCS: 36415; 50200; 76942; 80048; 80076; 81001; 82043; 82570; 83735; 84100; 84550; 85014; 85018; 85025; 88300; G0378; J0885; J2250; J2310; J3010; J7030; Q4081